=== PATIENT | male | born 1955 | race Caucasian/White ===

== ENCOUNTER 2019-09-02 20:00 | Outpatient (CLI) | payer MEDICAID, SELFPAY | END 2019-09-02 20:01 | disposition home or self-care (01) | LOC: SLEEP 09-03 09:53 | PROVIDERS: Family Provider Family Medicine; PCP Family Medicine; Visit Provider Family Medicine | DX: G47.33 Obstructive sleep apnea (adult) (pediatric) (principal) | CPT/HCPCS: 95810; 95811 ==

== ENCOUNTER 2019-09-11 12:58 | Emergency (ER) | payer MEDICAID, SELFPAY ==
[2019-09-11 13:03] VITALS: BP 145/73; PULSE 98; RESP 18; TEMP 36.9; O2SAT 95; BMI 32.3
--- NOTE | 2019-09-11 13:14 | ED_ITS ---
Entered by Briana Farah, acting as scribe for Gavi Reynoso MD HPI - Extremity Problem General: Chief complaint: Extremity Injury, Lower Stated complaint: KNEE PAIN Time Seen by Provider: 09/11/19 13:13 Source: patient Mode of arrival: ambulatory History of Present Illness: HPI Narrative: 64 yo male presents to ED with complaints of R knee pain, R lower leg pain and R ankle pain. The patient said he fell 2-3 days ago, twisting his R knee. He said the pain goes from his R knee down to his R foot. He said he is unable to bear weight. Complaint: joint swelling and joint paint Onset (ago): day(s) (2-3) Pain Consistency: constant Location: right, lower extremity and knee Quality: aching and constant Radiation: none Relieving factors: immobilization Exacerbating factors: nothing Associated symptoms: Reports no associated symptoms; Deny chest pain, fever(s) or rash Review of Systems Const: Denies: fever or chills Eyes: Denies: change in vision ENMT: Denies: throat pain or mouth pain Card: Denies: chest pain Resp: Denies: shortness of breath GI: Denies: abdominal pain, vomiting or diarrhea Musc: Reports: joint pain; Denies: back pain Skin/Breast: Denies: rash Neuro: Denies: headache Psych: Denies: depression Endo: Denies: excessive urination Martell/Lymph: Denies: easy bruising All/Imm: Denies: hives PFSH ED PFSH: Statuses (acute, chronic, etc) shown below reflect problem list status as previously entered and may not be historically accurate Social History Smoking and tobacco status: current every day smoker Physical Exam Const: COMMON NORMALS: no apparent distress and healthy appearing HENMT: COMMON NORMALS: normocephalic and external nose normal HEAD & SCALP: normocephalic NOSE: external nose normal and no nasal discharge (nasal dischage) Eye: COMMON NORMALS: PERRL PUPIL: Yes PERRL Neck/C-Spine: COMMON NORMALS: full ROM and no lymphadenopathy Chest: COMMONS NORMALS: inspection of chest normal Resp: COMMON NORMALS: normal respiratory effort and clear to auscultation bilaterally AUSCULTATION: clear to auscultation bilaterally Cardio: COMMON NORMALS: regular rate and regular rhythm RATE: regular rate RHYTHM: regular rhythm GI: COMMON NORMALS: soft to palpation PALPATION: Yes soft Extremity: COMMON NORMALS: normal to inspection and normal capillary refill OTHER: Tenderness to left knee with pain with movement no obvious deformity distal pulses intact. Psych: COMMON NORMALS: mental status grossly normal and cooperative Skin: COMMON NORMALS: no rashes or lesions noted GENERAL SKIN EXAM: no rashes or lesions noted Course Vital Signs: Vital signs: Vital Signs Temperature 98.4 F 09/11/19 13:25 Pulse Rate 98 09/11/19 13:25 Respiratory Rate 14 09/11/19 13:25 Blood Pressure 133/69 09/11/19 13:25 Pulse Oximetry 94 09/11/19 13:25 MDM - Extremity (Nontraumatic) MDM Narrative: Medical decision making narrative: Patient presents with a knee sprain. X-ray shows no fracture. Patient placed in a knee immobilizer and crutches and is stable for discharge. Imaging Data^: xr knee: Attestation: I personally reviewed and interpreted this imaging study as follows: My impression: no acute abnormality Discharge Plan Discharge Patient Disposition: Home, Self-Care Clinical Impression: Right knee sprain Qualifiers: Encounter type: initial encounter Involved ligament of knee: unspecified ligament Qualified Code(s): S83.91XA - Sprain of unspecified site of right knee, initial encounter Condition: Stable Prescriptions: New EC-Naprosyn 500 mg tablet,delayed release (DR/EC) 500 mg PO BID PRN (Reason: pain) Qty: 20 RF: 0 Discharge Orders: Discharge Order (Routine); Ordered 09/11/19 Ordered By: Gavi Reynoso Referrals: Rehan Clarke MD [Primary Care Provider] - Tomas Almendarez MD [Physician] - 4-7 days Discharge Diet: Advance as tolerated Discharge Activity: Increase activity as tolerated Patient Instructions: Knee Sprain (ED) Coding Level of Care Code ED Applicator Sprayer for Chg Fwd Exam Problem Focused The documentation recorded by the Gagan harris Valerie R, accurately reflects the service I personally performed and the decisions made by Angeles pa Korby, MD Sep 11, 2019 12:58
--- NOTE | 2019-09-11 13:17 | XRR_ITS ---
PROCEDURE INFORMATION: Exam: XR Right Knee Exam date and time: 09/11/2019 1:50 PM Age: 64 years old Clinical indication: Injury or trauma; Fall; Initial encounter; Blunt trauma; Knee; Right; Injury date: 2 days ago; Additional info: Knee pain, PT fell 2 days ago TECHNIQUE: Imaging protocol: XR Right knee. Views: 3 views. COMPARISON: CR Knee 3 views, RIGHT* [id number] 02/10/2019 11:07 PM FINDINGS: Bones/joints: Normal. Soft tissues: Negative for acute bony abnormality XR/XR knee RT 3V* [id number] IMPRESSION: No acute findings.
[2019-09-11 13:25] VITALS: BP 133/69; PULSE 98; RESP 14; TEMP 36.9; O2SAT 94
[2019-09-11] MEDS: HYDROcodone-acetaminophen 7.5-325 mg Tablet 1 TAB PO (14:05)
--- NOTE | 2019-09-12 12:22 | DCPLANNER ---
live study manager was asked to schedule a followup appointment for patient with ortho. live study manager called the ortho clinic, spoke with Pat, gave clinic patients information. live study manager was told that patients information would be printed and reviewed. Clinic will call case briefer and patient with appointment information.
--- NOTE | 2019-09-17 14:37 | DCPLANNER ---
Patient has a follow up appointment scheduled for 09.22.19 at [facility] with Dr. Cisneros at 9:30. Clinic will call patient with appointment information.
--- NOTE | 2019-10-21 14:16 | DCPLANNER ---
Patient did not attend appointment scheduled for 09.22.19 with ortho.
== END 2019-09-11 13:57 | disposition home or self-care (01) ==
PROVIDERS: Emergency Provider Emergency Medicine; Family Provider Family Medicine; PCP Family Medicine
DX: S83.91XA Sprain of unspecified site of right knee, initial encounter (principal); X50.1XXA Overexertion from prolonged static or awkward postures, initial encounter; F17.210 Nicotine dependence, cigarettes, uncomplicated
CPT/HCPCS: 73562; 99281

== ENCOUNTER → 2019-10-06 11:44 | Outpatient (BNVA) | payer MEDICAID, SELFPAY | PROVIDERS: Family Provider Family Medicine; PCP Family Medicine; Referring Provider Family Medicine; Visit Provider Internal Medicine Rheumatology | DX: M05.9 Rheumatoid arthritis with rheumatoid factor, unspecified (principal); Z79.899 Other long term (current) drug therapy; Z11.59 Encounter for screening for other viral diseases; Z11.1 Encounter for screening for respiratory tuberculosis; Z79.52 Long term (current) use of systemic steroids | CPT/HCPCS: 36415; 80076; 82306; 82565; 85651; 86140; 86480; 86704; 99214 ==

== ENCOUNTER → 2019-10-06 13:38 | Outpatient (BNVA) | payer MEDICAID, SELFPAY | PROVIDERS: Family Provider Family Medicine; PCP Family Medicine; Referring Provider Family Medicine; Visit Provider Internal Medicine Rheumatology | DX: Z79.899 Other long term (current) drug therapy (principal); Z11.59 Encounter for screening for other viral diseases; Z71.89 Other specified counseling; M05.9 Rheumatoid arthritis with rheumatoid factor, unspecified | CPT/HCPCS: 85025 ==

== ENCOUNTER 2019-10-17 14:29 | Outpatient (CLI) | payer MEDICAID, SELFPAY ==
--- NOTE | 2019-10-17 14:41 | XR_ITS ---
WS: [id number] Chest 2 views, 10/17/2019 Clinical Data: POSITIVE PPD Comparison: PA chest, 06/02/2019. Findings: No nodules, masses or effusions are seen. The heart is normal. The pulmonary vascularity is not increased. No pneumonia or pneumothorax is seen. There is flattening of the diaphragms with prom inent atelectasis at both lower lobes. The aortic arch and descending aorta show calcification. XR/XR chest 2V* [id number] Impression: Atherosclerosis and hyperinflation.
== END 2019-10-17 14:30 | disposition home or self-care (01) ==
LOC: RAD 14:37
PROVIDERS: Family Provider Family Medicine; PCP Family Medicine; Visit Provider Family Medicine
DX: I70.0 Atherosclerosis of aorta (principal); R76.11 Nonspecific reaction to tuberculin skin test without active tuberculosis
CPT/HCPCS: 71046

== ENCOUNTER 2019-11-17 07:54 | Outpatient (CLI) | payer MEDICAID, SELFPAY ==
--- NOTE | 2019-11-17 08:00 | MR_ITS ---
WS: [id number] MRI CERVICAL SPINE HISTORY: cervical pain COMPARISON: None available. Posterior alignment is normal. Reactive marrow edema along the endplates of C5 and C6. No fractures. Disc desiccation and narrowing throughout. Most significant at C5-6. Additional osteophytes extend po steriorly from C5 and C6 by 4.6 mm. Signal within the cervical cord is normal. Visualized posterior fossa is unremarkable. Craniocervical junction, C1 and C2 relationship, odontoid process and soft tissues are normal. C2-C3: RIGHT paracentral osteophyte and disc protrusion. Bilateral facet joint arthritis. Severe LEFT foraminal stenosis due to osteophyte and facet disease. C3-C4: Diffuse disc bulging and osteophytic ridging. Central disc osteophyte complex. Effacement of C SF with severe central and bilateral foraminal stenosis. C4-C5: Diffuse annular disc bulging with osteophytic ridging and facet arthritis. Central disc protru woody contributing to severe central and LEFT foraminal stenosis. Moderate RIGHT foraminal stenosis. C5-C6: Diffuse annular disc bulging and osteophytic ridging and facet disease. Severe central, subart icular recess and bilateral foraminal stenosis. Deformity and displacement of the thecal sac and cerv ical cord. C6-C7: Small osteophytes with no significant stenosis. C7-T1: Normal. Paraspinal soft tissue are normal. MR/MR cervical spin wo con* [id number] IMPRESSION: 1. Multilevel spondylitic changes and stenosis throughout the cervical spine. 2. Most significant stenosis at C5-6. Severe central, subarticular recess and bilateral foraminal stenosis with deformity of the cord and displacement. 3. Severe LEFT foraminal stenosis at C2-3. 4. Severe central and bilateral foraminal stenosis at C3-4. 5. Severe central and LEFT foraminal stenosis at C4-5 with moderate RIGHT fora antwan stenosis.
--- NOTE | 2019-11-17 08:45 | XR_ITS ---
WS: [id number] LATERAL CERVICAL SPINE: 3 view. Lateral radiographs are performed in upright neutral, flexion and extension to the patient's toleranc e. HISTORY: cervical pain COMPARISON: None available. Increase in cervical lordosis. Patient's neck is held in hyperflexion. Less than 2 mm anterolisthesis of C3, C4 and C5. With flexion and extension there is minimal anterior movement of C4 by 3.8 mm. Near normal alignment during extension. Advanced degenerative changes at C 5-6. XR/XR cervical spine fl/ex [id number] IMPRESSION: 1. Increase in cervical lordosis. 2. During flexion C4 anterolisthesis to 3.8 mm indicating mild instability. Ne ar normal alignment with extension and neutral positioning.
== END 2019-11-17 07:55 | disposition home or self-care (01) ==
LOC: RADSHAW 07:55
PROVIDERS: Family Provider Family Medicine; PCP Family Medicine; Visit Provider Specialist
DX: M47.892 Other spondylosis, cervical region (principal); M48.02 Spinal stenosis, cervical region
CPT/HCPCS: 72040; 72141

== ENCOUNTER 2020-01-05 14:08 | Observation (INO) | payer MEDICAID, SELFPAY ==
[2020-01-02 11:34] VITALS: BMI 31.6
[2020-01-05] VITALS (17 sets, daily range): BP systolic 107–172; BP diastolic 71–89; PULSE 93–118; RESP 17–35; TEMP 36.3–37.1; O2SAT 89–99
--- NOTE | 2020-01-05 08:51 | ANES.PREANE2 ---
Pre-Anesthetic Assessment Pre-Anesthetic Assessment: Height/Weight: Height 1.85 m Weight 108.862 kg Preop Diagnosis: Intervertebral disc disorder with myelopathy, mid cervical region Proposed Procedure: Operation Date: 01/05/20 09:55 Proposed Procedures p C4-5, C5-6 ACDFF ([id number]) M50.020(Not Applicable) - Salvador Capone MD Familial anesthetic complications: None Was Beta Sonam taken within 24 hours: Yes Last intake: Intake Last Liquid Date 01/04/20 Last Solid Date 01/04/20 Last Solid Time 17:30 Social: Social History: Tobacco and No alcohol Exam: Pre-Anes Outpt Exam: alert, oriented x 3, clear to auscultation bilaterally and regular rate & rhythm Airway: Cervical ROM: Other (limited extension) MP: 4 Additional comments: edentulous Pulmonary: Pulmonary: COPD and Sleep apnea CV/HEM: CV/HEM: HTN and DC (years ago) : : None reported Hepatic: Hepatic: None reported GI: GI: None reported Metabolic: Metabolic: DM Musc/skel: Comments: neck pain Neuropsych: Neuropsych: None reported Anesthetic Plan: ASA status: 3 Anesthesia: General Risk of > 500 ml blood loss (7ml/kg in children): No PFSH Anesthesia PFSH: Medical History (Updated 01/02/20 @ 11:24 by Gali Rodriguez RN) Adhesive arachnoiditis CHF (congestive heart failure) COPD (chronic obstructive pulmonary disease) Diabetes GERD (gastroesophageal reflux disease) High risk medication use Immunization counseling Inflammatory arthritis Osteoarthritis Rheumatoid arthritis with rheumatoid factor Spondylolisthesis, lumbar region Surgical History (Updated 01/02/20 @ 11:24 by Gali Rodriguez RN) History of arthroscopy of knee History of back surgery History of lumbar fusion History of PTCA Family History Other Arthritis Asthma CAD (coronary artery disease) Cancer Diabetes Heart disease Hypertension Denies family history of Rheumatoid arthritis Lupus Social History Smoking and tobacco status: current every day smoker Alcohol intake: never Lives independently: Yes Marital status: Current occupational status: retired and disabled Current occupation: retired/disabled History of recent travel: No Data Anesthesia Cardiac Studies: No Data to Display
[2020-01-05 08:56] LABS: Glucose Point of Care 221 mg/dL (70-110)
--- NOTE | 2020-01-05 08:57 | W.PM.OPSUD ---
Surgery/Procedure H&P Update DATE OF PROCEDURE: January 05, 2020 DATE H&P PERFORMED: 12/11/19 H&P UPDATE INFORMATION: I have reviewed H&P completed within last 30 days and H&P to be scanned into chart PREOP DIAGNOSIS: Intervertebral disc disorder with myelopathy, mid cervical region PRIMARY INDICATION FOR PROCEDURE: Pain PLANNED PROCEDURE: Operation Date: 01/05/20 09:55 Proposed Procedures C4-5, C5-6 ACDFF ([id number]) M50.020(Not Applicable) - Salvador Capone MD
--- NOTE | 2020-01-05 09:11 | XR_ITS ---
WS: [id number] Portable lateral cervical spine in the OR, 01/05/2020 Clinical Data: SURGERY Comparison: Lateral lumbar spine, 11/17/2019 Findings: There is a radiopaque needle in the anterior subcutaneous space in the neck which is pointed toward t he C4 vertebral body. XR/XR cervical spine 1Vport [id number] Impression: Needle pointing toward C4 vertebral body.
[2020-01-05] MEDS: sodium chloride 0.9% 1,000 ML 30 ML IV (09:16)
[2020-01-05] MEDS: insulin regular-human 100 units/1 mL 5 UNIT IVP (09:17)
--- NOTE | 2020-01-05 09:30 | PM.OP2 ---
Brief Operative Note: Date of procedure: 01/05/20 Pre-op diagnosis: Intervertebral disc disorder with myelopathy, midcervical Post-op diagnosis: same (with instability of joint) Procedure Done: C4-C5, C5-C6 ACDFF Surgeon: Salvador Capone Estimated blood loss (mL): 25 Complications: None. Post-op Plan: PACU, then vargas Condition: stable Disposition: PACU Coding Level of Care Code Acute Pesticide Applicator for Ashley Matt
[2020-01-05] MEDS: thrombin 5,000 unit SDV 5000 UNIT XX (10:15)
--- NOTE | 2020-01-05 10:28 | XR_ITS ---
WS: [id number] Portable lateral cervical spine in the OR, 01/05/2020, 1031 hours. Clinical Data: surgery Comparison: The lateral cervical spine in the OR, 01/05/2020, 0946 hours Findings: There are retractors and probes in the anterior aspect of the neck. The radiopaque probe is at the C4 -C5 disc level. XR/XR cervical spine [facility] [id number] Impression: Localization of C4-C5 disc.
--- NOTE | 2020-01-05 10:41 | SUR.OPER ---
Family Notified Of Patient's Status Via Phone.
--- NOTE | 2020-01-05 11:47 | SUR.OPER ---
ATTEMPTED TO GIVE FAMILY UPDATE BUT THERE WAS NO ANSWER.
--- NOTE | 2020-01-05 13:08 | XR_ITS ---
WS: [id number] Cervical spine, AP and lateral, 01/05/2020 Clinical Data: postop Comparison: Portable lateral lower cervical spine, 01/05/2020, 1031 hours Findings: The anterior cervical disc fusion from C4 through C6 is seen. The components are in good po sition. There are artificial disks at C4-C5 and C5-C6. There is calcification in the right side of th e neck which may be in the carotid arteries. XR/XR cervical spine 3V* [id number] Impression: Satisfactory anterior cervical disc fusion C4-C6.
--- NOTE | 2020-01-05 17:00 | P.OP_ITS ---
Operative Report Date of procedure: January 05, 2020 Pre-op Diagnosis: Intervertebral disc disorder with myelopathy, mid cervical region Post-op diagnosis: same (with instability of joint) Procedure Done: C4-C5, C5-C6 anterior cervical discectomy with osteophytectomy. C4-C5, C5-C6 anterior cervical plate/screw fixation. C4-C5, C5-C6 placement of intervertebral prosthetic devices. C4-C5, C5-C6 anterior cervical fusion utilizing morselized autograft obtained from the osteophytectomy portions of the procedure. Implants: ACIS ProTi Spacers. Synthes Vectra plate/screws. Specimens removed/disposition: C4-C5 and C5-C6 disc Pathology: Disc fragments Surgeon: Salvador Capone Anesthesia: General Estimated blood loss (mL): 25 IV fluids (mL): 1,200 Urine output (mL): 250 Complications: None. Condition: stable Disposition: PACU Brief History: The patient is a 64-year-old white male with symptomatic, radiographically confirmed cervical disc/joint disease and associated neural impingement. Imaging studies demonstrated dominant abnormalities at C4-C5 and C5-C6. Conservative management did not provide adequate lasting symptom relief. After review of the diagnostic and treatment options with the risks/potential benefits/rationale for each, the patient requested to proceed with surgical intervention. Procedure: After routine preoperative evaluation and informed consent were obtained, the patient was taken to the Operating Room and placed under general endotracheal anesthesia. He was positioned supine and fit in the Moise-Mar Lin tongs for the application of in-line cervical traction. The anterolateral neck on the left was prepared with hair clippers. A proposed transverse skin incision was marked with a sterile skin marker, utilizing intraoperative radiography and regional anatomy for localization. The area was scrubbed with Betadine, prepped with DuraPrep, and draped with sterile towels and drapes. Ioban surgical barrier was applied. The proposed incision site was infiltrated with 1% Xylocaine with Epinephrine. A skin incision was made and carried down into the subcutaneous tissues. The platysma was identified and divided in the direction of its fibers. A plane was dissected just medial to the carotid sheath and lateral to the midline esophagus and trachea. Prevertebral soft tissues were bluntly dissected free of the anterior margin of the cervical spine. Longus coli muscles were freed from their medial attachments. Deep self-retaining retractors were placed. Intraoperative radiography verified the desired surgical levels. The C4-C5 and C5-C6 interspaces were sequentially incised with a #11 blade. Discectomies were accomplished utilizing various curettes and pituitary rongeurs. Anterior marginal osteophytes were resected with the Lempert and Kerrison rongeurs. Cartilaginous end plates were stripped free with curettes. Posterior marginal osteophytes were resected with thin foot plate Kerrison rongeurs. The medial aspects of the neural foramina were enlarged in a similar manner. Posterior longitudinal ligament was divided and resected as necessary to further the decompression. Due to extensive bony overgrowth of the C5-C6 disc space and marginal osteophyte contribution to neural impingement, the Mediaspectrum high-speed drill with flor[place] jacqueline was utilized to complete the osteophytectomy portions of the procedure and for endplate preparation. Overall, encroachment and osteophyte prominence were greater C5-C6 than C4-C5. Suspected segmental instability was confirmed at C4-C5. Once the decompressions were felt to be adequate at both levels, the disc spaces were sized. An 8mm ACIS ProTi lordotic/medium Spacer was chosen for C4-C5. A 7 mm ACIS ProTi lordotic/medium Spacer was chosen for C5-C6. The Spacers were packed with morselized autograft obtained from the osteophytectomy portions of the procedure. The Spacers were sequentially placed within the C4-C5 and C5-C6 interspaces while in-line cervical traction was applied via the Moise-Wells tongs. Once the Spacers were felt to be in good position, a Synthes Vectra plate of the desired size was chosen. The plate was bent to match the curvature of the patient's cervical spine utilizing the plate alvarez. The plate was secured to the C4, C5 and C6 vertebral bodies with bilateral 4 mm x 14 mm self-drilling screws. Final screw tightening was performed, and the locking mechanisms within the plate were noted to engage the screws at each site. The construct was inspected and felt to be in good position and secure. The wound was copiously irrigated with sterile saline and antibiotic irrigation. Hemostasis was ensured with the bipolar electrocautery. Wound closure was performed in multiple layers with 2-0 Vicryl Plus simple interrupted closure of the platysma and deep dermis as separate layers. Final skin closure was performed with 4-0 Vicryl Plus in a running subcuticular pattern. Steri- Strips were applied and a sterile dressing was placed. The patient was released from the [facility] and fit in a Falls collar. He was transferred onto the Recovery Room cart in the supine position. He was extubated without incident. The patient tolerated the procedure well. All sponge, needle, and instrument counts were correct at the completion of the procedure.
[2020-01-05 17:15] LABS: Glucose Point of Care 215 mg/dL (70-110)
--- NOTE | 2020-01-05 17:33 | PC.NURSE ---
patient given discharge instructions and verbalized understanding of instructions. patient's called for ride home.
--- NOTE | 2020-01-05 18:00 | PM.DCS ---
Discharge Providers Date of Admission: 01/05/20 14:08 Date of Discharge: January 05, 2020 Attending Provider at Admission: Salvador Capone MD Attending Provider at Discharge: Salvador Capone MD Primary Care Provider: Rehan Clarke MD Diagnoses at Discharge Discharge Diagnosis (1) Cervical disc disorder with myelopathy of mid-cervical region: Status: Acute (2) Instability of joint: Status: Acute Reason for Visit Reason for Visit: Brief History: The patient is a 64-year-old white male with symptomatic, radiographically confirmed cervical disc/joint disease and associated neural impingement. Imaging studies demonstrated dominant abnormalities at C4-C5 and C5-C6. Conservative management did not provide adequate lasting symptom relief. After review of the diagnostic and treatment options with the risks/potential benefits/rationale for each, the patient requested to proceed with surgical intervention. Hospital Course Hospital Course: The patient underwent C4-C5, C5-C6 ACDFF on 01/05/2020. He tolerated the procedure well. He completed preoperative and postoperative intravenous antibiotic doses, and the physical therapy postoperative spine protocol. He was ambulatory, voiding, and tolerating a diabetic diet prior to discharge home in the evening of the date of surgery. Physical Exam Const: COMMON NORMALS: no acute distress GENERAL APPEARANCE: cooperative and comfortable Neck/C-Spine: GENERAL: Yes trachea midline CERVICAL SPINE: Yes collar present Resp: COMMON NORMALS: normal respiratory effort EFFORT & INSPECTION: Yes able to speak in complete sentences and No tachypneic Extremity: COMMON NORMALS: no clubbing, cyanosis or edema Neuro: COMMON NORMALS: moves all extremities and no focal motor deficits Psych: COMMON NORMALS: Normal thought process present and speech normal APPEARANCE: Yes grossly normal ATTITUDE: Yes calm and Yes engaged ACTIVITY/MOTOR BEHAVIOR: Yes appropriate eye contact SPEECH: Yes normal speech MOOD & AFFECT: Yes euthymic mood THOUGHT PROCESS: Normal thought process present ATTENTION/CONCENTRATION: Yes attention grossly intact Skin: WOUNDS: Yes surgical site (Left anterolateral neck surgical site dressing clean/dry/intact. ) Details: other (no surgical site erythema, fullness or drainage) Urinary Catheter Management^: F: Cath Placed During This Visit: yes, but has since been removed by the nurse Urinary Catheter Date of Insertion: 01/05/20 Urinary Catheter Time of Insertion: 09:30 Date Urinary Catheter Removed: 01/05/20 Time Urinary Catheter Discontinued: 13:02 Discharge Data Data Completed and Pending: Completed Studies During Hospitalization Category Date Time Status XR cervical spine 1 view portable [ XR cervical spine Exams 01/05/20 09:11 Completed 1Vport 82873] Rou remedios XR cervical spine 1 view portable [ XR cervical spine Exams 01/05/20 10:28 Completed 1Vport 63831] Lionel remedios XR cervical spine 3V* [id number] Routine Exams 01/05/20 13:08 Completed Pathology: Surgic al [PTH] Routine Pth 01/05/20 13:01 Completed Imaging^: Other Xray: Radiologist's impression: Satisfactory anterior cervical disc fusion C4-C6. Procedures Performed: C4-C5, C5-C6 anterior cervical discectomy/fusion/fixation. Intravenous antibiotics. Physical therapy. Vitals: Last Vital Signs Temp 98.8 F 01/05/20 18:05 Pulse 104 H 01/05/20 18:05 Resp 17 01/05/20 18:05 BP 162/71 01/05/20 18:05 Pulse Ox 92 01/05/20 18:05 Discharge Plan Discharge Patient Disposition: Home, Self-Care Condition: Stable Prescriptions: Continued tramadol 50 mg tablet 50 mg PO TID PRN (Reason: Pain) RF: 0 Victoza 2-Karl 0.6 mg/0.1 mL (18 mg/3 mL) pen injector 1.8 mg SUBCUT Q24H RF: 0 cholecalciferol (vitamin D3) 5,000 unit tablet,disintegrating 5,000 unit PO DAILY RF: 0 Stiolto Respimat 2.5-2.5 mcg/actuation mist 2 puff INHALATION DAILY RF: 0 amlodipine 5 mg tablet 5 mg PO DAILY RF: 0 docusate sodium [Colace] 100 mg capsule 100 mg PO BID RF: 0 rosuvastatin [Crestor] 40 mg tablet 40 mg PO DAILY RF: 0 ferrous sulfate 325 mg (65 mg iron) tablet 325 mg PO BID RF: 0 gabapentin 600 mg tablet 600 mg PO TID RF: 0 Jardiance 25 mg tablet 25 mg PO DAILY RF: 0 metformin 1,000 mg tablet 1,000 mg PO BID RF: 0 methimazole [Tapazole] 5 mg tablet 5 mg PO DAILY RF: 0 nitroglycerin [Nitrostat] 0.4 mg tablet, sublingual 0.4 mg SUBLINGUAL Q5M PRN (Reason: Chest Pain) RF: 0 pantoprazole 20 mg tablet,delayed release (DR/EC) 20 mg PO DAILY RF: 0 albuterol sulfate [ProAir HFA] 90 mcg/actuation HFA aerosol inhaler 2 puff INHALATION Q6H PRN (Reason: Shortness Of Breath) RF: 0 tamsulosin 0.4 mg capsule 0.4 mg PO DAILY RF: 0 Combivent Respimat 20-100 mcg/actuation mist 1 puff INHALATION Q4H RF: 0 Humulin R Regular U-100 Insuln 100 unit/mL solution 5 unit SUBCUT TID RF: 0 metoprolol tartrate 50 mg tablet 50 mg PO BID Qty: 180 RF: 3 isosorbide mononitrate 30 mg tablet extended release 24 hr 30 mg PO DAILY Qty: 30 RF: 12 prednisone 2.5 mg tablet See Rx Instructions PO .COMPLEX Qty: 60 RF: 1 isoniazid 300 mg Tablet 300 mg PO DAILY RF: 0 leflunomide [Arava] 20 mg tablet 20 mg PO DAILY RF: 0 Held aspirin [Adult Low Dose Aspirin] 81 mg tablet,delayed release (DR/EC) 81 mg PO DAILY RF: 0 Hold Instructions: Resume on 01/06/20. Discharge Orders: Discharge Order (Routine); Ordered 01/05/20 Ordered By: Salvador Capone Other Ambulatory Orders: DME: [facility] (Order) Location: None Selected Ordered By: Salvador Capone Referrals: Salvador Capone MD [Physician] - 2 weeks (Please call in the morning to set up a follow up appointment with Dr. Capone ) Discharge Diet: Diabetic Discharge Activity: Limit activity as instructed and As per PT/OT instructions Patient Instructions: Surgical Site Infections (GEN), Degenerative Disc Disease (DC), Lumbar Spinal Fusion (DC) Activity Restrictions/Additional Instructions: Activity -Cervical fusion: Wear cervical collar 24 hours a day. Change as necessary for showering, shaving, or if it becomes soiled. -No lifting or reaching overhead. - No driving until office followup visit - No lifting/pushing/pulling over 10 pounds - Avoid twisting or bending - Walking is encouraged - Home exercise per physical therapist - You may engage in sexual intercourse at any time as long as it is comfortable for you - Check with your doctor before returning to work. Notify your doctor if you develop: - temperature of 101.5 degrees F. or higher - redness or swelling of the incision - Foul drainage - increasing pain - increasing numbness or tingling in the arms or legs - New or increasing problems with vision, balance, memory, speaking, nausea or vomiting Hygiene: - Showering is okay - No tub baths or soaking Other: Remove outer bandage 3 days after surgery. If you have paper strips, leave in place until they fall off on their own. If you have stitches, keep your incision dry until the stitches are removed. Your doctor's office is available to answer any questions from 7 AM to 5:00 PM, Sunday through at [phone]. After hours, go to the emergency room at [facility] or call 911 for assistance. Discharge Date/Time: 01/05/20 18:06 Discharge Attestations Time Spent in Discharge Care*: other (postop global) Quality Metrics Clinical Quality Measures During this hospital stay, did patient experience: None Coding Level of Care Code Acute Formal Waiter/Waitress for Ashley Matt Diagnoses Cervical disc disorder with myelopathy of mid-cervical region M50.020 Instability of joint M25.30
--- NOTE | 2020-01-06 10:18 | PC.NURSE ---
Deidra with SS said patient didn't get a walker yesterday because order wasn't signed. Jose Elias with PT said he put order in yesterday for the walker. Metabolic Specialist called Dr Capone's office and spoke with Shelton, she said Dr Capone opened chart and signed the order just now. Metabolic Specialist let SS know that Shelton said order was signed.
== END 2020-01-05 18:06 | disposition home or self-care (01) ==
LOC: MEDSURG 14:08
PROVIDERS: Admitting Provider Specialist; PCP Family Medicine; Visit Provider Specialist
PROC: 0RB30ZZ Excision of Cervical Vertebral Disc, Open Approach (ICD-10-PCS; CPT 22551; principal; 2020-01-05 09:50)
DX: M51.06 Intervertebral disc disorders with myelopathy, lumbar region (principal); G60.8 Other hereditary and idiopathic neuropathies; R26.81 Unsteadiness on feet; Z98.890 Other specified postprocedural states; E78.5 Hyperlipidemia, unspecified; E11.40 Type 2 diabetes mellitus with diabetic neuropathy, unspecified; N40.1 Benign prostatic hyperplasia with lower urinary tract symptoms; N13.8 Other obstructive and reflux uropathy; J43.9 Emphysema, unspecified; E03.9 Hypothyroidism, unspecified; I11.0 Hypertensive heart disease with heart failure; I50.9 Heart failure, unspecified; M19.90 Unspecified osteoarthritis, unspecified site; Z79.82 Long term (current) use of aspirin; Z79.4 Long term (current) use of insulin; K21.9 Gastro-esophageal reflux disease without esophagitis; G47.33 Obstructive sleep apnea (adult) (pediatric); I25.2 Old myocardial infarction; F17.210 Nicotine dependence, cigarettes, uncomplicated
CPT/HCPCS: 22551; 22552; 22853 ×2; 12345; 36416; 72020; 72040; 82962; 88304; 94640; 94660; 96360; 96361; 96374; 97161; 97530; C1713; G0378; J0690; J1815; J2001; J2704; J3010; J3490; J3535; J7030; L0172; L0174

== ENCOUNTER 2020-01-23 09:39 | Outpatient (CLI) | payer MEDICAID, SELFPAY ==
--- NOTE | 2020-01-23 10:02 | XR_ITS ---
WS: [id number] XR cervical spine 3V* [id number] REASON FOR EXAM: s/p cervical spinal fusion FINDINGS: Anterior fusion C4-C5-C6 with intraspinal fusion There is good alignment of the fused segments. There is no cervical ribs seen There is cervical spondylosis noted. XR/XR cervical spine 3V* [id number] IMPRESSION: Stable anterior fusion C4-C5-C6
== END 2020-01-23 09:40 | disposition home or self-care (01) ==
LOC: RADWPI 09:42
PROVIDERS: Family Provider Family Medicine; PCP Family Medicine; Visit Provider Licensed Practical Nurse
DX: Z98.1 Arthrodesis status (principal)
CPT/HCPCS: 72040

== ENCOUNTER → 2020-02-11 10:18 | Outpatient (BNVA) | payer MEDICAID, SELFPAY | PROVIDERS: Family Provider Family Medicine; PCP Family Medicine; Visit Provider Internal Medicine Rheumatology | DX: M05.9 Rheumatoid arthritis with rheumatoid factor, unspecified (principal); Z79.899 Other long term (current) drug therapy | CPT/HCPCS: 36415; 85025; 85651 ==

== ENCOUNTER 2020-02-16 09:59 | Outpatient (CLI) | payer MEDICAID, SELFPAY ==
--- NOTE | 2020-02-16 10:00 | XR_ITS ---
WS: [id number] CERVICAL SPINE 3 VIEWS HISTORY: s/p cervical spinal fusion COMPARISON: 01/23/2020 Prior anterior cervical fusion from C4 through C6 with interbody spacers at C4-5 and C5-6. No interval change in appearance of the hardware. Soft tissues are normal. XR/XR cervical spine 3V* [id number] IMPRESSION: Status post anterior cervical fusion from C4 to C6 with no interval change appr eciated.
== END 2020-02-16 10:00 | disposition home or self-care (01) ==
LOC: RADWPI 10:03
PROVIDERS: Family Provider Family Medicine; PCP Family Medicine; Visit Provider Licensed Practical Nurse
DX: Z98.1 Arthrodesis status (principal)
CPT/HCPCS: 72040

== ENCOUNTER → 2020-02-26 11:38 | Outpatient (BNVA) | payer MEDICAID, SELFPAY | PROVIDERS: Family Provider Family Medicine; PCP Family Medicine; Visit Provider Internal Medicine Rheumatology | DX: M05.79 Rheumatoid arthritis with rheumatoid factor of multiple sites without organ or systems involvement (principal); Z98.890 Other specified postprocedural states; Z22.7 Latent tuberculosis; Z79.899 Other long term (current) drug therapy; F17.210 Nicotine dependence, cigarettes, uncomplicated | CPT/HCPCS: 99214 ==

== ENCOUNTER 2020-03-03 08:10 | Outpatient (CLI) | payer MEDICAID, SELFPAY ==
--- NOTE | 2020-03-03 08:00 | CT_ITS ---
WS: [id number] CT cervical spine. Additional two-dimensional coronal and sagittal reconstruction was performed. 03/03 Clinical Data: s/p cervical spinal fusion Comparison: MRI of the cervical spine, 11/17/2019., Cervical spine, 02/16/2020. DLP: 1717.[address] scans at [facility] use at least one of these dose optimization techniques: automat ed exposure control; mA and/or kV adjustment per patient size (includes targeted exams where dose is matched to clinical indication); or iterative reconstruction. Findings: No compression fractures are seen. The patient has had an anterior cervical disc fusion from C4 throu gh C6 with artificial disc material at C4-C5 and C5-C6. The odontoid is normal. There is disc space n arrowing at C6-C7 and C7-T1. The spinous processes are in good alignment. The soft tissues of the nec k are not remarkable. No prevertebral soft tissue swelling is present. C2-C3: There is left foraminal narrowing with a osteophytic spur of the C2 vertebral body and osteoar thritis of the left facet joint. C3-C4: There is bilateral foraminal narrowing with left facet joint arthritis. C4-C5: There is left foraminal narrowing with a spur of the left posterior C4 vertebral body and left facet joint arthritis. C5-C6: Bilateral foraminal narrowing with posterior spurring and facet joint arthritis. C6-C7: No disc bulge, canal stenosis or foraminal stenosis is seen. There is bilateral facet joint ar thritis. C7-T1: No disc bulge, canal stenosis or foraminal stenosis is seen. CT/CT cervical spin wo con* [id number] Impression: 1. Intact anterior cervical disc fusion of C4-C6. 2. Degenerative disc narrowing at C6-C7 and C7-T1. 3. Multilevel foraminal narrowing with posterior spurring and facet joint arthr itis.
== END 2020-03-03 08:11 | disposition home or self-care (01) ==
LOC: RADWPI 08:12
PROVIDERS: Family Provider Family Medicine; PCP Family Medicine; Visit Provider Licensed Practical Nurse
DX: Z98.1 Arthrodesis status (principal); M43.22 Fusion of spine, cervical region
CPT/HCPCS: 72125

== ENCOUNTER 2020-03-17 06:58 | Outpatient (CLI) | payer MEDICAID, SELFPAY ==
--- NOTE | 2020-03-17 07:11 | US_ITS ---
WS: [id number] INDICATION: Left forearm swelling TECHNIQUE: Ultrasound soft tissue left forearm FINDINGS: Left posterior elbow effusion with dorsal fluid collection. Internal debris within the flui d collection. Recommend correlation for olecranon bursitis or gouty arthritis. Infection should be ex cluded. Fluid collection measures 4.1 x 1.6 x 1.6 cm US/US soft tissue/extremity 28140 IMPRESSION: Left posterior elbow fluid collection with complex internal debris. Recommend correlation for BP olecranon bursitis or gouty arthritis. Infection should also be excluded.
== END 2020-03-17 06:59 | disposition home or self-care (01) ==
LOC: US 06:58
PROVIDERS: Family Provider Family Medicine; PCP Family Medicine; Visit Provider Internal Medicine Rheumatology
DX: M79.89 Other specified soft tissue disorders (principal)
CPT/HCPCS: 76882

== ENCOUNTER 2020-04-11 12:01 | Emergency (ER) | payer MEDICAID, SELFPAY ==
--- NOTE | 2020-04-11 12:03 | XR_ITS ---
WS: [id number] EXAM: RIGHT KNEE: 3 VIEWS DATE OF EXAMINATION: 04/11/2020, 1345 hours COMPARISON: Right knee examination from 09/11/2019 HISTORY: Patient is 64 years old with knee pain status post injury. FINDINGS: Overall bone density appears similar. Considered slightly decreased. Again demonstrated are mild trevino ges of arthritis in the medial and patellofemoral compartments. Lateral compartment appears fairly no rmal in appearance. No fracture or dislocation is seen. Minimal suprapatellar joint fluid. Arterial c alcified plaque formation changes seen. Slight nonspecific soft tissue edema seen superficial to the knee in the distal quadriceps region. XR/XR knee RT 3V* [id number] IMPRESSION: No acute bony abnormality. Mild osteoarthritis in the knee with a small amount of joint fluid. Soft tissue contusion injury anterior/superior to the patella.
[2020-04-11 12:27] VITALS: BP 84/54; PULSE 90; RESP 18; TEMP 36.6; O2SAT 93; BMI 32.7
--- NOTE | 2020-04-11 12:38 | ED_ITS ---
HPI - Extremity Problem General: Chief complaint: Extremity Injury, Lower Stated complaint: fall/right knee pain Time Seen by Provider: 04/11/20 12:38 History of Present Illness: HPI Narrative: 64-year-old male patient presents to the emergency department with complaints of right knee pain. He reports sustained a fall yesterday, was getting off the commode when he lost his balance and fell. He states is not able to complete weightbearing. He reports no other injury with exception of right knee. MD Complaint: joint swelling (Right knee) Onset (ago): hour(s) (24) Pain Consistency: constant Location: right Severity scale (1-10): 7 Quality: aching and constant Radiation: none Relieving factors: immobilization and rest Exacerbating factors: weight bearing Associated symptoms: Reports no associated symptoms; Deny chest pain, fever(s) or rash Review of Systems General: Reports: 10 or more systems reviewed and unremarkable except in HPI and below Const: Denies: fever(s), chills or diaphoresis Eyes: Denies: blurry vision or eye redness ENMT: Denies: throat pain, dental pain or disequilibrium Card: Denies: chest pain, palpitations or irregular heart rhythm Resp: Denies: dyspnea, productive cough, non-productive cough or wheezing GI: Denies: abdominal pain, nausea or vomiting : Denies: dysuria Musc: Reports: extremity pain (Right knee), joint swelling (Right knee) and joint stiffness (Right knee); Denies: neck pain or back pain Skin/Breast: Denies: rash or pruritus Neuro: Denies: headache(s), weakness in extremities or behavioral changes Martell/Lymph: Denies: easy bruising [facility] ED PFSH: Medical History (Updated 04/11/20 @ 15:07 by KHANG Kaur) Adhesive arachnoiditis CHF (congestive heart failure) COPD (chronic obstructive pulmonary disease) Diabetes GERD (gastroesophageal reflux disease) High risk medication use History of trigger finger Immunization counseling Inactive TB Inflammatory arthritis Latent tuberculosis by blood test Osteoarthritis Post-operative state Rheumatoid arthritis with rheumatoid factor Seropositive rheumatoid arthritis of multiple sites Spondylolisthesis, lumbar region Surgical History History of arthroscopy of knee History of back surgery History of cervical spinal surgery (01/05/20) Dr. Capone History of lumbar fusion History of PTCA History of spinal surgery 01/05/2020 Dr. Karla Capone: C4-C5, C5-C6 ACDFF. Hx of hand surgery Family History Father CAD (coronary artery disease) Cancer Heart disease Hypertension Other Arthritis Asthma Social History Smoking and tobacco status: current every day smoker Alcohol intake: never Household members: spouse and family Marital status: Current occupational status: retired and disabled Current occupation: retired/disabled History of recent travel: No Physical Exam Const: COMMON NORMALS: no acute distress, patient oriented x3, healthy appearing and alert GENERAL APPEARANCE: cooperative, comfortable and well hydrated Eye: COMMON NORMALS: Equal, round and reactive pupils present and EOMs intact bilaterally GENERAL EYE: appearance normal, both eyes and all related structures PUPIL: Yes Equal, round and reactive pupils present Neck/C-Spine: COMMON NORMALS: full ROM and no lymphadenopathy GENERAL: Yes normal visual inspection and Yes trachea midline CERVICAL SPINE: Yes cervical ROM normal Lymph: LYMPHATIC: no lymphadenopathy noted Chest: COMMONS NORMALS: normal inspection of the chest Resp: COMMON NORMALS: normal respiratory effort and clear to auscultation bilaterally AUSCULTATION: clear to auscultation bilaterally Cardio: COMMON NORMALS: regular rhythm, S1 normal heart sound present, S2 normal heart sound present and Peripheral pulses 2+ throughout RHYTHM: regular rhythm HEART SOUNDS: S1 normal heart sound present and S2 normal heart sound present PERIPHERAL PULSES: Peripheral pulses 2+ throughout GI: COMMON NORMALS: Soft to palpation and non-tender INSPECTION: Yes normal to inspection PALPATION: Yes Soft to palpation : COMMON NORMALS: Yes no CVA tenderness BLADDER/KIDNEY EXAM: Yes no CVA tenderness Back/Pelvis: COMMON NORMALS: no CVA tenderness and thoracic and lumbar spine normal to inspection Extremity: COMMON NORMALS: normal to inspection and capillary refill normal GENERAL: Yes normal exam except as noted, No cyanosis, No mottling and Yes weight-bearing difficulty RIGHT LOWER EXTREMITY: No upper leg, Yes knee joint (right) Right knee: Yes inspection (anterior/medial edema), Yes palpation (pain), Yes ROM (limited due to pain) and Yes neurovascular exam (intact), No lower leg, No foot & digits and No foot & digits Neuro: COMMON NORMALS: patient oriented x3 and no focal motor deficits SENSORIUM/ORIENTATION: Yes alert Psych: COMMON NORMALS: mental status grossly normal, Normal thought process present and cooperative ACTIVITY/MOTOR BEHAVIOR: Yes appropriate eye contact THOUGHT PROCESS: Normal thought process present Skin: COMMON NORMALS: no rashes or lesions noted and turgor normal GENERAL SKIN EXAM: no rashes or lesions noted and turgor normal Course ED course: 64-year-old male patient presents to the emergency department with right knee pain status post fall he experienced 1 days ago. Right knee x-ray did not reveal acute fracture, patient was unable to ambulate or bear weight on the right leg due to knee pain reproduced. CT scan of the right knee completed, negative for tibial plateau fracture or other occult fracture. Case discussed with Dr. Reynoso. No further orders, patient recommended to follow-up with clinical research technician/primary care provider, verbalized understanding and agrees with plan of care, crutches were provided. Vital Signs: Vital signs: Vital Signs Temperature 97.8 F 04/11/20 12:27 Pulse Rate 90 04/11/20 12:27 Respiratory Rate 18 04/11/20 12:27 Blood Pressure 84/54 04/11/20 12:27 Pulse Oximetry 93 04/11/20 12:27 MDM - Extremity (Nontraumatic) Imaging Data^: Other CT: Radiologist's impression: [place] [address] CT Scan Report Signed Patient: Jase Warren #: [id number] : 6Acct#:[id number] Age/Sex: 64 / MADM Date: 04/11/20 Loc: ERRoom/Bed: Attending Dr: Ordering Provider/Ordering MD: Ana Lilia Pink Date of Service: 04/11/20 Procedure(s): CT lower leg RT wo con* [id number] Accession Number(s): [id number] Report Number: [id number] WS: [id number] EXAM: CT lower leg RT wo con* [id number] DATE OF EXAMINATION: 04/11/2020, 1440 hours COMPARISON: Right knee examination from the same date. HISTORY: 64-year-old fell. Complaining of pain in the knee. TECHNIQUE: Transaxial computed tomography images obtained through the area of the right knee with images viewed in soft tissue and bone window with reconstructions. Iterative reconstruction dose reduction technique was utilized during the performance of examination. DLP: 215.8 mGy.cm FINDINGS: There is a soft tissue contusion injury over the anterior distal upper thigh and quadriceps region with edema in the skin and subcutaneous tissues. The distal quadriceps tendon is intact. Overall bone density is decreased. Trabecular bone loss as well as subcortical tunneling is demonstrated. There are changes of tricompartmental osteoarthritis involving the knee. No fracture is identified. Joint effusion is seen with the majority of fluid being within the suprapatellar pouch. On soft tissue windows the medial and lateral collateral ligaments, distal quadriceps tendon and patellar tendon are normal in appearance. The anterior and posterior crucial ligaments are both felt to be intact as well. Both menisci are not well evaluated on CT imaging. If there is concern for meniscal tear follow-up MRI of the knee would be recommended. Arterial atherosclerotic plaque formation is demonstrated in the posterior arterial structures. CT/CT lower leg RT wo con* [id number] IMPRESSION: No fracture seen. Changes of arthritis in the knee joint with a reactive joint effusion. Soft tissue contusion injury over the distal lower upper thigh and suprapatellar region. Dictated By:Jasper Jade MD Signed By:Jasper Jade MD Discharge Plan Discharge Patient Disposition: Home Clinical Impression: Arthritis Fall as cause of accidental injury at home as place of occurrence Qualifiers: Encounter type: initial encounter Qualified Code(s): W19.XXXA - Unspecified fall, initial encounter Knee contusion Qualifiers: Encounter type: initial encounter Laterality: right Qualified Code(s): S80.01XA - Contusion of right knee, initial encounter Condition: Stable Prescriptions: No Action tramadol 50 mg tablet 50 mg PO TID PRN (Reason: Pain) RF: 0 Victoza 2-Karl 0.6 mg/0.1 mL (18 mg/3 mL) pen injector 1.8 mg SUBCUT Q24H RF: 0 cholecalciferol (vitamin D3) 5,000 unit tablet,disintegrating 5,000 unit PO DAILY RF: 0 Stiolto Respimat 2.5-2.5 mcg/actuation mist 2 puff INHALATION DAILY RF: 0 aspirin [Adult Low Dose Aspirin] 81 mg tablet,delayed release (DR/EC) 81 mg PO DAILY RF: 0 Hold Instructions: Resume on 01/06/20. docusate sodium [Colace] 100 mg capsule 100 mg PO BID RF: 0 rosuvastatin [Crestor] 40 mg tablet 40 mg PO DAILY RF: 0 ferrous sulfate 325 mg (65 mg iron) tablet 325 mg PO BID RF: 0 gabapentin 600 mg tablet 600 mg PO TID RF: 0 Jardiance 25 mg tablet 25 mg PO DAILY RF: 0 metformin 1,000 mg tablet 1,000 mg PO BID RF: 0 methimazole [Tapazole] 5 mg tablet 5 mg PO DAILY RF: 0 nitroglycerin [Nitrostat] 0.4 mg tablet, sublingual 0.4 mg SUBLINGUAL Q5M PRN (Reason: Chest Pain) RF: 0 pantoprazole 20 mg tablet,delayed release (DR/EC) 20 mg PO DAILY RF: 0 albuterol sulfate [ProAir HFA] 90 mcg/actuation HFA aerosol inhaler 2 puff INHALATION Q6H PRN (Reason: Shortness Of Breath) RF: 0 tamsulosin 0.4 mg capsule 0.4 mg PO DAILY RF: 0 Combivent Respimat 20-100 mcg/actuation mist 1 puff INHALATION Q4H RF: 0 leflunomide [Arava] 20 mg tablet 20 mg PO DAILY Qty: 30 RF: 3 prednisone 10 mg tablet See Rx Instructions PO .COMPLEX PRN (Reason: joint pain) Qty: 30 RF: 2 Humulin R Regular U-100 Insuln 100 unit/mL solution 5 unit SUBCUT TID RF: 0 metoprolol tartrate 50 mg tablet 50 mg PO BID Qty: 180 RF: 3 isosorbide mononitrate 30 mg tablet extended release 24 hr 30 mg PO DAILY Qty: 30 RF: 12 amlodipine 5 mg tablet 5 mg PO DAILY Qty: 90 RF: 0 isoniazid 300 mg Tablet 300 mg PO DAILY RF: 0 Discharge Orders: Discharge Order (Routine); Ordered 04/11/20 Ordered By: Ana Lilia Pink Referrals: Rehan Clarke MD [Primary Care Provider] - Discharge Diet: Usual diet Discharge Activity: Limit activity as instructed Patient Instructions: Osteoarthritis (ED), Rheumatoid Arthritis (ED), Knee Pain (ED), Fall Prevention (ED) Activity Restrictions/Additional Instructions: Activity as tolerated Take medications as prescribed, may use tramadol as needed for pain Keep right knee elevated, may apply cool compresses to the right knee to help with swelling and pain Follow-up with your primary care provider this week for reevaluation of the right knee if pain continues/fails to improve. Return to the emergency department if you develop fever, chills or redness with increased pain to the right knee or right lower extremity. Discharge Date/Time: 04/11/20 15:24 Coding Level of Care Code ED Iuss Acoustic Analyst for Ashley Fwd Exam Comprehensive
--- NOTE | 2020-04-11 14:20 | CT_ITS ---
WS: [id number] EXAM: CT lower leg RT wo con* [id number] DATE OF EXAMINATION: 04/11/2020, 1440 hours COMPARISON: Right knee examination from the same date. HISTORY: 64-year-old fell. Complaining of pain in the knee. TECHNIQUE: Transaxial computed tomography images obtained through the area of the right knee with images viewed in soft tissue and bone window with reconstructions. Iterative reconstruction dose reduction technique was utilized during the performance of examination. DLP: 215.8 mGy.cm FINDINGS: There is a soft tissue contusion injury over the anterior distal upper thigh and quadriceps region wi th edema in the skin and subcutaneous tissues. The distal quadriceps tendon is intact. Overall bone d ensity is decreased. Trabecular bone loss as well as subcortical tunneling is demonstrated. There are changes of tricompartmental osteoarthritis involving the knee. No fracture is identified. Joint effu woody is seen with the majority of fluid being within the suprapatellar pouch. On soft tissue windows the medial and lateral collateral ligaments, distal quadriceps tendon and witt llar tendon are normal in appearance. The anterior and posterior crucial ligaments are both felt to be intact as well. Both menisci are not well evaluated on CT imaging. If there is concern for meniscal tear follow-up MRI of the knee would be recommended. Arterial atherosclerotic plaque formation is demonstrated in the posterior arterial structures. CT/CT lower leg RT wo con* [id number] IMPRESSION: No fracture seen. Changes of arthritis in the knee joint with a reactive joint effusion. Soft tissue contusion injury over the distal lower upper thigh and lockhart prapatellar region.
== END 2020-04-11 15:24 | disposition home or self-care (01) ==
PROVIDERS: Emergency Provider Nurse Practitioner Family; PCP Family Medicine
DX: S80.01XA Contusion of right knee, initial encounter (principal); Z79.82 Long term (current) use of aspirin; Z79.4 Long term (current) use of insulin; M17.11 Unilateral primary osteoarthritis, right knee; I50.9 Heart failure, unspecified; J44.9 Chronic obstructive pulmonary disease, unspecified; E11.9 Type 2 diabetes mellitus without complications; F17.210 Nicotine dependence, cigarettes, uncomplicated; W18.11XA Fall from or off toilet without subsequent striking against object, initial encounter
CPT/HCPCS: 12345; 73562; 73700; 99281; 99283; E0114

== ENCOUNTER → 2020-04-14 08:08 | Outpatient (BNVA) | payer MEDICAID, SELFPAY | PROVIDERS: PCP Family Medicine; Referring Provider Internal Medicine Rheumatology; Visit Provider Specialist | DX: M70.22 Olecranon bursitis, left elbow; M05.9 Rheumatoid arthritis with rheumatoid factor, unspecified; S59.902A Unspecified injury of left elbow, initial encounter; X58.XXXA Exposure to other specified factors, initial encounter; Y93.9 Activity, unspecified | CPT/HCPCS: 73080; 80500; 84450; 87075; 89050 ==

== ENCOUNTER → 2020-04-14 09:00 | Outpatient (BNVA) | payer MEDICAID, SELFPAY | PROVIDERS: PCP Family Medicine; Referring Provider Internal Medicine Rheumatology; Visit Provider Specialist | DX: Z01.89 Encounter for other specified special examinations (principal) | CPT/HCPCS: 84450; 87075 ==

== ENCOUNTER → 2020-06-24 11:33 | Outpatient (BNVA) | payer MEDICAID, SELFPAY | PROVIDERS: PCP Family Medicine; Visit Provider Specialist | DX: M25.561 Pain in right knee (principal) | CPT/HCPCS: 73560; 73565 ==

== ENCOUNTER → 2020-07-08 08:44 | Outpatient (BNVA) | payer MEDICAID, SELFPAY | PROVIDERS: PCP Family Medicine; Visit Provider Internal Medicine Rheumatology | DX: Z79.899 Other long term (current) drug therapy (principal) | CPT/HCPCS: 36415; 80076; 82565; 85025; 85651; 86140 ==

== ENCOUNTER → 2020-07-19 09:36 | Outpatient (BNVA) | payer MEDICAID, SELFPAY | PROVIDERS: PCP Family Medicine; Visit Provider Internal Medicine Rheumatology | DX: M05.79 Rheumatoid arthritis with rheumatoid factor of multiple sites without organ or systems involvement (principal); M17.11 Unilateral primary osteoarthritis, right knee; Z79.899 Other long term (current) drug therapy; Z22.7 Latent tuberculosis; Z98.890 Other specified postprocedural states | CPT/HCPCS: 99214 ==

== ENCOUNTER 2020-08-31 08:47 | Outpatient (CLI) | payer MEDICAID, SELFPAY ==
--- NOTE | 2020-08-31 08:56 | CT_ITS ---
WS: [id number] LDCT LUNG CANCER SCREENING TECHNIQUE: Noncontrast CT of the chest with coronal and sagittal reformatted images. CLINICAL INFORMATION: NICOTINE DEPENDENCE, CIGARETTES COMPARISON: None. DLP: 58.15 mGy.cm DIvol: 1.[address] scans at [facility] use at least one of these dose optimization techniques: automat ed exposure control; mA and/or kV adjustment per patient size (includes targeted exams where dose is matched to clinical indication); or iterative reconstruction. FINDINGS: Aortic calcification. Coronary calcification. Left proximal subclavian artery stent. No mediastinal o r hilar lymphadenopathy. Adrenal glands are normal. Lobulation upper pole left kidney partially visua lized. This can be further evaluated with CT abdomen pelvis or ultrasound. Mild chronic emphysematous changes. No suspicious pulmonary parenchymal abnormalities. Calcified subp leural plaques the left upper lobe. Field impression No acute pulmonary infiltrates. No consolidation or pleural fluid. CT/CT lung screening [id number] IMPRESSION: LUNG-RADS: 2-Benign Appearance or Behavior FOLLOW UP: 12 Month: Continue annual screening with LDCT Lobulation upper pole left kidney partially visualized. This can be further catian luated with CT abdomen pelvis or ultrasound.
== END 2020-08-31 08:48 | disposition home or self-care (01) ==
LOC: RAD 08:52
PROVIDERS: PCP Family Medicine; Visit Provider Family Medicine
DX: Z12.2 Encounter for screening for malignant neoplasm of respiratory organs (principal); F17.210 Nicotine dependence, cigarettes, uncomplicated
CPT/HCPCS: 71271

== ENCOUNTER → 2020-10-28 09:16 | Outpatient (BNVA) | payer MEDICARE, MEDICAID, SELFPAY | PROVIDERS: PCP Family Medicine; Visit Provider Orthopaedic Surgery | DX: M47.892 Other spondylosis, cervical region (principal); M54.2 Cervicalgia; Z98.1 Arthrodesis status | CPT/HCPCS: 72050 ==

== ENCOUNTER 2020-11-05 10:40 | Outpatient (CLI) | payer MEDICARE, MEDICAID, SELFPAY ==
--- NOTE | 2020-11-05 11:00 | MR_ITS ---
WS: [id number] MRI CERVICAL SPINE NONCONTRAST TECHNIQUE: Sagittal T1, T2 and STIR imaging. Axial T2, gradient, and fiesta imaging. CLINICAL INFORMATION: M54.2 - Cervicalgia COMPARISON: CT March 03, 2020 FINDINGS: Some images are degraded due to susceptibility artifact from hardware and motion artifact. Normal cervical alignment. Prior postoperative changes C4-C6 anterior interbody cervical fusion. Cord signal is normal. Mild to moderate central canal stenosis in the mid cervical spine. Alignment appea rs unchanged since March 03, 2020. C2-C3: Disc osteophytic ridging. Moderate left bony foraminal narrowing. Spinal canal is patent. Mild facet arthropathy. C3-C4: Disc osteophyte complex with endplate ridging. Mild to moderate central canal stenosis. Modera te facet arthropathy. Moderate to severe left and mild right bony foraminal narrowing. C4-C5: Disc osteophyte complex with endplate ridging. Moderate facet arthropathy. Moderate central ca nal stenosis. Severe left and moderate right bony foraminal narrowing. C5-C6: Disc osteophytic ridging with moderate central canal stenosis. Severe left and moderate to sev ere right proximal foraminal narrowing. Moderate facet arthropathy. C6-C7: Slight anterolisthesis C6 on C7. Mild left greater than right bony foraminal narrowing. Mild f acet arthropathy. Spinal canal is patent. C7-T1: Slight anterolisthesis. Disc osteophyte complex with mild left greater than right bony foramin al narrowing. Spinal canal is patent. Visualized brain stem structures: Normal. Prevertebral soft tissues: Normal. MR/MR cervical spin wo con* [id number] IMPRESSION: 1. Normal cervical alignment. Prior anterior interbody cervical fusion C4-C6. 2. Cord signal is normal. 3. Mild to moderate central canal stenosis C3-C4 C4-C5 and C5-C6 due to disc o steophyte complex at C3-C4 and osteophytic ridging at C4-C5 and C5-C6. 4. Multilevel moderate to severe bony foraminal narrowing worse at left C3-C4, left C4-C5, left C5-C6. 5. Multilevel moderate to advanced facet arthropathy worse at left C3-C4, left C4-C5, and bilateral C5-C6.
== END 2020-11-05 10:41 | disposition home or self-care (01) ==
LOC: RADWPI 10:45
PROVIDERS: PCP Family Medicine; Visit Provider Orthopaedic Surgery
DX: M43.22 Fusion of spine, cervical region (principal); M48.02 Spinal stenosis, cervical region; M47.812 Spondylosis without myelopathy or radiculopathy, cervical region
CPT/HCPCS: 72141

== ENCOUNTER 2020-11-19 09:44 | Outpatient (CLI) | payer MEDICARE, MEDICAID, SELFPAY ==
[2020-11-19 10:15] LABS: Basophils # 0.1 10^3/uL (0.0-0.1); Basophils % 1.6 %; Eosinophils # 0.2 10^3/uL (0.0-0.8); Eosinophils % 2.2 %; Hematocrit 50.2 % (42.0-52.0); Hemoglobin 16.3 g/dL (11.7-16.6); Lymphocytes # 1.5 10^3/uL (0.8-4.8); Lymphocytes % 19.5 %; Mean Corpuscular HGB Conc 32.5 g/dL (30.0-36.0); Mean Corpuscular Hemoglobin 34.5 pg (28.0-34.0); Mean Corpuscular Volume 106.4 fL (80-94); Mean Platelet Volume 10.7 fL (7.4-10.4); Monocytes # 0.7 10^3/uL (0.2-0.9); Monocytes % 9.2 %; Neutrophils % 67.2 %; Nucleated Red Blood Cells % 0 %; Platelet Count 202 10^3/cmm (130-400); Red Blood Count 4.72 10^6/uL (4.1-5.3); Red Cell Distribution Width 12.7 % (12.1-15.1); White Blood Count 7.6 10^3/uL (4.0-10.0)
[2020-11-19 10:30] LABS: Alanine Aminotransferase 10 U/L (0-41); Alkaline Phosphatase 117 IU/L (40-130); Aspartate Amino Transferase 13 U/L (0-40); C Reactive Protein 1.8 mg/L (0.0-4.9); Globulin 2.6 g/dL (1.3-4.6); Glomerular Filtration Rate 60.8 mL/min (90-130); Total Bilirubin 0.3 mg/dL (0.15-1.2); Total Protein 6.6 g/dL (6.6-8.7)
== END 2020-11-19 09:45 | disposition home or self-care (01) ==
PROVIDERS: PCP Family Medicine; Visit Provider Internal Medicine Rheumatology
DX: M05.9 Rheumatoid arthritis with rheumatoid factor, unspecified (principal); Z79.899 Other long term (current) drug therapy
CPT/HCPCS: 36415; 80076; 82565; 85025; 86140

== ENCOUNTER → 2020-11-29 10:31 | Outpatient (BNVA) | payer MEDICARE, MEDICAID, SELFPAY | PROVIDERS: PCP Family Medicine; Visit Provider Internal Medicine Rheumatology | DX: M05.79 Rheumatoid arthritis with rheumatoid factor of multiple sites without organ or systems involvement (principal); Z79.899 Other long term (current) drug therapy; M47.12 Other spondylosis with myelopathy, cervical region; Z22.7 Latent tuberculosis; Z98.890 Other specified postprocedural states; F17.210 Nicotine dependence, cigarettes, uncomplicated | CPT/HCPCS: 99214 ==

== ENCOUNTER 2020-12-23 09:04 | Emergency (ER) | payer MEDICARE, MEDICAID, SELFPAY ==
[2020-12-23 09:07] VITALS: BP 152/71; PULSE 124; RESP 18; O2SAT 95; BMI 31.6
--- NOTE | 2020-12-23 09:11 | XR_ITS ---
WS: [id number] Left knee, 3 views, 12/23/2020 Clinical Data: fall/pain Comparison: AP view of both knees, 06/24/2020. Findings: There is medial joint compartment narrowing. There is spurring of the posterior patella. No fractures or dislocations are seen. The soft tissues are normal. XR/XR knee LT 3V* [id number] Impression: 1. Moderate narrowing of the medial joint compartment of the left knee and spur ring of the posterior left patella. 2. Normal lateral joint compartment of the left knee.
[2020-12-23 09:12] VITALS: TEMP 36.8
--- NOTE | 2020-12-23 09:12 | W.ED.FALL ---
HPI - Fall General: Chief Complaint: Fall Stated Complaint: KNEE PAIN PFSH ED PFSH: Medical History (Updated 11/29/20 @ 11:31 by Azael Traylor MD) Adhesive arachnoiditis CHF (congestive heart failure) COPD (chronic obstructive pulmonary disease) Diabetes GERD (gastroesophageal reflux disease) High risk medication use High risk medication use History of trigger finger Immunization counseling Inactive TB Inflammatory arthritis 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 Capone History of lumbar fusion History of PTCA History of spinal surgery 01/05/2020 Dr. Karla Capone: C4-C5, C5-C6 ACDFF. Hx of hand surgery Family History Father CAD (coronary artery disease) Cancer Heart disease Hypertension Other Arthritis Asthma Social History (Updated 11/29/20 @ 10:50 by Mary Green LPN) Smoking and tobacco status: current every day smoker cigarettes Packs smoked per day: 1 Alcohol intake: never Household members: spouse and family Marital status: Current occupational status: retired and disabled Current occupation: retired/disabled History of recent travel: No Course Vital Signs: Vital signs: Vital Signs Pulse Rate 124 H 12/23/20 09:07 Respiratory Rate 18 12/23/20 09:07 Blood Pressure 152/71 12/23/20 09:07 Pulse Oximetry 95 12/23/20 09:07 Discharge Plan Discharge Prescriptions: No Action tramadol 50 mg tablet 50 mg PO TID PRN (Reason: Pain) RF: 0 Victoza 2-Karl 0.6 mg/0.1 mL (18 mg/3 mL) pen injector 1.8 mg SUBCUT Q24H RF: 0 Stiolto Respimat 2.5-2.5 mcg/actuation mist 2 puff INHALATION DAILY RF: 0 aspirin [Adult Low Dose Aspirin] 81 mg tablet,delayed release (DR/EC) 81 mg PO DAILY RF: 0 Hold Instructions: Resume on 01/06/20. docusate sodium [Colace] 100 mg capsule 100 mg PO BID RF: 0 rosuvastatin [Crestor] 40 mg tablet 40 mg PO DAILY RF: 0 Jardiance 25 mg tablet 25 mg PO DAILY RF: 0 metformin 1,000 mg tablet 1,000 mg PO BID RF: 0 methimazole [Tapazole] 5 mg tablet 5 mg PO DAILY RF: 0 nitroglycerin [Nitrostat] 0.4 mg tablet, sublingual 0.4 mg SUBLINGUAL Q5M PRN (Reason: Chest Pain) RF: 0 pantoprazole 20 mg tablet,delayed release (DR/EC) 20 mg PO DAILY RF: 0 albuterol sulfate [ProAir HFA] 90 mcg/actuation HFA aerosol inhaler 2 puff INHALATION Q6H PRN (Reason: Shortness Of Breath) RF: 0 tamsulosin 0.4 mg capsule 0.4 mg PO DAILY RF: 0 Combivent Respimat 20-100 mcg/actuation mist 1 puff INHALATION Q4H RF: 0 Humira Pen 40 mg/0.8 mL pen injector kit 40 mg SUBCUT Q14D Qty: 2 RF: 3 leflunomide 20 mg tablet 20 mg PO DAILY 30 Days Qty: 30 RF: 3 prednisone 10 mg tablet See Rx Instructions PO .COMPLEX PRN (Reason: joint pain) Qty: 30 RF: 2 gabapentin 300 mg capsule 200 mg PO TID RF: 0 gabapentin 300 mg capsule 400 mg PO TID RF: 0 cyanocobalamin (vitamin B-12) 1,000 mcg capsule 1,000 mcg PO DAILY RF: 0 Novolin N Flexpen 100 unit/mL (3 mL) insulin pen 80 unit SUBCUT QAM RF: 0 ergocalciferol (vitamin D2) 50 mcg (2,000 unit) capsule 50,000 mcg PO DAILY RF: 0 Air Protector 1,000-50 mg tablet, effervescent PO RF: 0 insulin lispro 100 unit/mL insulin pen 5 unit SUBCUT TID RF: 0 metoprolol tartrate 50 mg tablet 50 mg PO BID Qty: 180 RF: 3 isosorbide mononitrate 30 mg tablet extended release 24 hr 30 mg PO DAILY Qty: 30 RF: 12 amlodipine 5 mg tablet See Rx Instructions .ROUTE .COMPLEX Qty: 30 RF: 0 Coding Level of Care Code ED Licensed Land Surveyor for Chg Fwd
--- NOTE | 2020-12-23 09:15 | W.ED.LOWEXIN ---
HPI - Extremity Injury (Lower) General: Chief Complaint: Fall Stated Complaint: KNEE PAIN Source: patient and EMS Mode of arrival: EMS Limitations: no limitations History of Present Illness: HPI Narrative: Patient is a 65-year-old male who presents to ED today via EMS for complaints of left knee pain. He states he chronically has pain in his right knee and states it often gives out. He states he was going up a flight of stairs when his right knee gave out causing his left knee to twist. He states he then fell directly onto his left knee. Patient states he was able to crawl into his home. He states he called an ambulance but states when they arrived at his house they told him there was no need for emergent transfer to the ED. patient tells me he has not been able to bear weight on the extremity since the event. No other injury sustained during the fall. MD complaint: knee injury Onset (ago): day(s) (yesterday) Injury: Left: knee Type of Injury: other (twisting, fall directly onto knee) Place: home Severity: severe Relieving factors: immobilization Exacerbating factors: weight bearing, movement and palpation Context: fall Associated symptoms: Reports inability to bear weight Other symptoms: none Review of Systems Const: Denies: fever(s), chills, body aches, fatigue or malaise Eyes: Denies: change in vision or blurry vision Card: Denies: chest pain, palpitations, edema or swelling of feet/ankles Resp: Denies: dyspnea GI: Denies: nausea or vomiting Musc: Reports: joint pain (L knee) and limited range of motion (L knee-secondary to pain); Denies: neck pain, back pain, extremity pain or extremity swelling Neuro: Denies: numbness in extremities, weakness in extremities or sensory changes [facility] ED PFSH: Medical History (Updated 12/23/20 @ 10:00 by YASMIN Gay) Adhesive arachnoiditis CHF (congestive heart failure) COPD (chronic obstructive pulmonary disease) Diabetes GERD (gastroesophageal reflux disease) High risk medication use High risk medication use History of trigger finger Immunization counseling Inactive TB Inflammatory arthritis 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 Capone History of lumbar fusion History of PTCA History of spinal surgery 01/05/2020 Dr. Karla Capone: C4-C5, C5-C6 ACDFF. Hx of hand surgery Family History Father CAD (coronary artery disease) Cancer Heart disease Hypertension Other Arthritis Asthma Social History (Updated 11/29/20 @ 10:50 by Mary Green LPN) Smoking and tobacco status: current every day smoker cigarettes Packs smoked per day: 1 Alcohol intake: never Household members: spouse and family Marital status: Current occupational status: retired and disabled Current occupation: retired/disabled History of recent travel: No Physical Exam Const: COMMON NORMALS: no acute distress, patient oriented x3, no limitations, alert and well nourished GENERAL APPEARANCE: cooperative ORIENTATION/CONSCIOUSNESS: Yes awake, Yes oriented to person, Yes oriented to place and Yes oriented to time HENMT: COMMON NORMALS: normocephalic and atraumatic HEAD & SCALP: normocephalic and atraumatic Neck/C-Spine: COMMON NORMALS: full ROM CERVICAL SPINE: Yes cervical ROM normal, No pain with cervical ROM, No Cervical spine tenderness and No Paracervical muscle tenderness Resp: COMMON NORMALS: normal respiratory effort and clear to auscultation bilaterally AUSCULTATION: clear to auscultation bilaterally Cardio: COMMON NORMALS: regular rate and regular rhythm RATE: regular rate RHYTHM: regular rhythm Back/Pelvis: COMMON NORMALS: thoracic and lumbar spine normal to inspection, no thoracic nor lumbar tenderness and thoraco-lumbar ROM normal Extremity: GENERAL: Yes normal exam except as noted OTHER: full ROM to R knee/no pain; chronic L olecranon bursitis; tenderness mainly to L lateral knee joint line-no ROM testing could be performed secondary to pain; all extremities NV intact; extremities otherwise normal apart from documented findings Neuro: COMMON NORMALS: patient oriented x3, moves all extremities, no focal motor deficits and no sensory deficits noted SENSORIUM/ORIENTATION: Yes alert, Yes oriented to person, Yes oriented to place and Yes oriented to time GAIT: Yes Unable to assess gait Skin: NARRATIVE SKIN EXAM: very minor abrasions to bilateral anterior knees Course Vital Signs: Vital signs: Vital Signs Temperature 98.2 F 12/23/20 09:12 Pulse Rate 124 H 12/23/20 09:07 Respiratory Rate 18 12/23/20 09:07 Blood Pressure 152/71 12/23/20 09:07 Pulse Oximetry 95 12/23/20 09:07 MDM - Extremity Injury (Lower) MDM Narrative: Medical decision making narrative: L knee XR negative. States he cannot bear weight on L knee. Patient does not feel like crutches or a walker is an option at this point as he states his right knee is not strong enough to support the weight. He is requesting a wheelchair. Recommend he follow-up with Dr. Clarke next week for re-evaluation. We discussed conservative treatment at home. If needed fails to improve physical therapy and/or MRI might be indicated. Imaging Data^: XR L knee: Radiologist's impression: [address] [address] XRay Report Signed Patient: Jase Warren Unit #: [id number] : 1955 Age/Sex: 65 / M ADM Date: 12/23/20 Loc: ER Room/Bed: Attending Dr: Ordering Provider/Ordering MD: Darya Melgar Date of Service: 12/23/20 Procedure(s): XR knee LT 3V* [id number] Accession Number(s): [id number] Report Number: [id number] WS: [id number] Left knee, 3 views, 12/23/2020 Clinical Data: fall/pain Comparison: AP view of both knees, 06/24/2020. Findings: There is medial joint compartment narrowing. There is spurring of the posterior patella. No fractures or dislocations are seen. The soft tissues are normal. XR/XR knee LT 3V* [id number] Impression: 1. Moderate narrowing of the medial joint compartment of the left knee and spurring of the posterior left patella. 2. Normal lateral joint compartment of the left knee. Dictated By: Lindy Carmona MD Signed By: Lindy Carmona MD Signed Date/Time: 12/23/20934 DD/ 2 Discharge Plan Discharge Patient Disposition: Home Clinical Impression: Injury of left knee Qualifiers: Encounter type: initial encounter Qualified Code(s): S89.92XA - Unspecified injury of left lower leg, initial encounter Condition: Stable Prescriptions: No Action tramadol 50 mg tablet 50 mg PO TID PRN (Reason: Pain) RF: 0 Victoza 2-Karl 0.6 mg/0.1 mL (18 mg/3 mL) pen injector 1.8 mg SUBCUT Q24H RF: 0 Stiolto Respimat 2.5-2.5 mcg/actuation mist 2 puff INHALATION DAILY RF: 0 aspirin [Adult Low Dose Aspirin] 81 mg tablet,delayed release (DR/EC) 81 mg PO DAILY RF: 0 Hold Instructions: Resume on 01/06/20. docusate sodium [Colace] 100 mg capsule 100 mg PO BID RF: 0 rosuvastatin [Crestor] 40 mg tablet 40 mg PO DAILY RF: 0 Jardiance 25 mg tablet 25 mg PO DAILY RF: 0 metformin 1,000 mg tablet 1,000 mg PO BID RF: 0 methimazole [Tapazole] 5 mg tablet 5 mg PO DAILY RF: 0 nitroglycerin [Nitrostat] 0.4 mg tablet, sublingual 0.4 mg SUBLINGUAL Q5M PRN (Reason: Chest Pain) RF: 0 pantoprazole 20 mg tablet,delayed release (DR/EC) 20 mg PO DAILY RF: 0 albuterol sulfate [ProAir HFA] 90 mcg/actuation HFA aerosol inhaler 2 puff INHALATION Q6H PRN (Reason: Shortness Of Breath) RF: 0 tamsulosin 0.4 mg capsule 0.4 mg PO DAILY RF: 0 Combivent Respimat 20-100 mcg/actuation mist 1 puff INHALATION Q4H RF: 0 Humira Pen 40 mg/0.8 mL pen injector kit 40 mg SUBCUT Q14D Qty: 2 RF: 3 leflunomide 20 mg tablet 20 mg PO DAILY 30 Days Qty: 30 RF: 3 prednisone 10 mg tablet See Rx Instructions PO .COMPLEX PRN (Reason: joint pain) Qty: 30 RF: 2 gabapentin 300 mg capsule 200 mg PO TID RF: 0 gabapentin 300 mg capsule 400 mg PO TID RF: 0 cyanocobalamin (vitamin B-12) 1,000 mcg capsule 1,000 mcg PO DAILY RF: 0 Novolin N Flexpen 100 unit/mL (3 mL) insulin pen 80 unit SUBCUT QAM RF: 0 ergocalciferol (vitamin D2) 50 mcg (2,000 unit) capsule 50,000 mcg PO DAILY RF: 0 Air Protector 1,000-50 mg tablet, effervescent PO RF: 0 insulin lispro 100 unit/mL insulin pen 5 unit SUBCUT TID RF: 0 metoprolol tartrate 50 mg tablet 50 mg PO BID Qty: 180 RF: 3 isosorbide mononitrate 30 mg tablet extended release 24 hr 30 mg PO DAILY Qty: 30 RF: 12 amlodipine 5 mg tablet See Rx Instructions .ROUTE .COMPLEX Qty: 30 RF: 0 Discharge Orders: Discharge ED (Routine); Ordered 12/23/20 Ordered By: Darya Melgar Referrals: Rehan Clarke MD [Primary Care Provider] - Activity Restrictions/Additional Instructions: Please ice and elevate the extremity as much as possible. Please follow-up with Dr. Clarke next week for re-evaluation. As discussed physical therapy or MRI may be indicated if knee does not improve with conservative treatment. Coding Level of Care Code ED Hotel Breakfast Attendant for Chg Fwd Exam Comprehensive
--- NOTE | 2020-12-23 11:19 | DCPLANNER ---
canteen manager was asked to arrange for a DME for patient, wheelchair. canteen manager spoke with patient and he stated that he wanted to use [employer] for the wheelchair. canteen manager faxed patients information to HOME medical equipment. A patient choice was filled out and put into patients chart.
[2020-12-23 11:53] VITALS: BP 128/78; PULSE 104; RESP 18; O2SAT 92
== END 2020-12-23 11:53 | disposition home or self-care (01) ==
PROVIDERS: Emergency Provider Physician Assistant; PCP Family Medicine
DX: S89.92XA Unspecified injury of left lower leg, initial encounter (principal); Z79.82 Long term (current) use of aspirin; Z79.4 Long term (current) use of insulin; I11.0 Hypertensive heart disease with heart failure; I50.9 Heart failure, unspecified; J44.9 Chronic obstructive pulmonary disease, unspecified; E11.9 Type 2 diabetes mellitus without complications; F17.210 Nicotine dependence, cigarettes, uncomplicated; X50.1XXA Overexertion from prolonged static or awkward postures, initial encounter
CPT/HCPCS: 73562; 99282

== ENCOUNTER → 2021-08-10 10:27 | Day surgery (SDC) | payer MEDICARE, MEDICAID, SELFPAY | PROVIDERS: PCP Family Medicine; Visit Provider Orthopaedic Surgery | DX: Z01.818 Encounter for other preprocedural examination (principal) | CPT/HCPCS: 93005 ==

== ENCOUNTER → 2021-08-10 14:38 | Outpatient (BNVA) | payer MEDICARE, MEDICAID, SELFPAY | PROVIDERS: PCP Family Medicine; Visit Provider Orthopaedic Surgery | DX: M47.12 Other spondylosis with myelopathy, cervical region (principal); Z01.818 Encounter for other preprocedural examination | CPT/HCPCS: 80048; 85025; 87635 ==

== ENCOUNTER 2021-08-17 10:53 | Day surgery (SDC) | payer MEDICARE, MEDICAID, SELFPAY ==
--- NOTE | 2021-08-10 10:27 | ECG_ITS ---
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 Measurements Intervals Totz Rate: 84 P: -36 SD: 132 QRS: -64 QRSD: 108 T: 66 QT: 332 QTc: 394 Interpretive Statements SINUS RHYTHM INCOMPLETE RIGHT BUNDLE BRANCH BLOCK [90+ ms QRS DURATION, TERMINAL R IN V1/V2, 40+ ms S IN I/aVL/V4/V5/V6] LEFT ANTERIOR FASCICULAR BLOCK [QRS AXIS <= -45, QR IN I, RS IN II] Compared to ECG 12/30/2018 20:33:41 Incomplete right bundle-branch block now present Left anterior fascicular block now present Sinus tachycardia no longer present Right bundle-branch block no longer present Electronically Signed On 08-11-2021 8:51:15 MANAGER VIDEO by Hesham Restrepo M.D. [id number]
[2021-08-10 10:28] VITALS: BMI 28.2
[2021-08-10 10:59] LABS: Basophils # 0.1 10^3/uL (0.0-0.1); Basophils % 1.4 %; Eosinophils # 0.2 10^3/uL (0.0-0.8); Eosinophils % 2.2 %; Hematocrit 46.9 % (42.0-52.0); Hemoglobin 15.3 g/dL (11.7-16.6); Lymphocytes # 1.6 10^3/uL (0.8-4.8); Lymphocytes % 19.8 %; Mean Corpuscular HGB Conc 32.6 g/dL (30.0-36.0); Mean Corpuscular Hemoglobin 33.8 pg (28.0-34.0); Mean Corpuscular Volume 103.8 fl (80-94); Mean Platelet Volume 10.4 fL (7.4-10.4); Monocytes # 0.8 10^3/uL (0.2-0.9); Monocytes % 9.3 %; Neutrophils # 5.37 10^3/uL (1.8-7.7); Neutrophils % 66.9 %; Nucleated Red Blood Cells % 0 %; Platelet Count 212 10^3/cmm (130-400); Red Blood Count 4.52 10^6/uL (4.1-5.3); Red Cell Distribution Width 14.3 % (12.1-15.1)
[2021-08-10 11:15] LABS: Anion Gap 17.2 (5-19); Blood Urea Nitrogen 9 mg/dL (8-23); Calcium 9.1 mg/dL (8.5-10.5); Carbon Dioxide 24 mmol/L (22-29); Chloride 103 mmol/L (98-107); Glucose 116 mg/dL (65-115); Osmolality Calculated 290 mOsm/kg (285-295); Potassium 4.2 mmol/L (3.5-5.1); Sodium 140 mmol/L (136-145)
--- NOTE | 2021-08-10 11:30 | ANES.PREANE2 ---
Pre-Anesthetic Assessment Pre-Anesthetic Assessment: Height/Weight: Height 1.85 m Weight 97.069 kg Preop Diagnosis: Intervertebral disc disorder with myelopathy, mid cervical region Proposed Procedure: Operation Date: 08/17/21 07:00 Proposed Procedures p C2-T2 with C3/4 C4/5 C5/6 Decompression [id number] 38574(x7) 09909 19522(4) M47.12(Not Applicable) - Musa H Sandra, DO s cervical decompression(Not Applicable) - Musa H Sandra, DO Familial anesthetic complications: None Social: Social History: Tobacco and No alcohol Exam: Pre-Anes Outpt Exam: alert, oriented x 3, clear to auscultation bilaterally and regular rate & rhythm Airway: MP: 1 Dentition: Other (no teeth) Pulmonary: Pulmonary: COPD and Sleep apnea (cpap w/ O2) Comments: hx tb CV/HEM: CV/HEM: CAD (stents > 1 year ago, no longer on blood thinners) GI: GI: GERD Metabolic: Metabolic: DM Musc/skel: Musc/skel: RA Anesthetic Plan: ASA status: 3 Anesthesia: General Risk of > 500 ml blood loss (7ml/kg in children): No PFSH Anesthesia PFSH: Medical History Adhesive arachnoiditis CHF (congestive heart failure) COPD (chronic obstructive pulmonary disease) Diabetes GERD (gastroesophageal reflux disease) High risk medication use High risk medication use History of trigger finger Immunization counseling Inactive TB Inflammatory arthritis 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 Capone History of lumbar fusion History of PTCA History of spinal surgery 01/05/2020 Dr. Karla Capone: C4-C5, C5-C6 ACDFF. Hx of hand surgery Family History Father CAD (coronary artery disease) Cancer Heart disease Hypertension Other Arthritis Asthma Social History Smoking and tobacco status: current every day smoker cigarettes Packs smoked per day: 1 Alcohol intake: never Household members: spouse and family Marital status: Current occupational status: retired and disabled Current occupation: retired/disabled History of recent travel: No Data Anesthesia CBC & Chem 7: 08/10/21 10:50 08/10/21 10:50 Other Labs: Laboratory Results - last 48 hr 08/10/21 08/10/21 10:50 10:50 WBC 8.0 RBC 4.52 Hgb 15.3 Hct 46.9 MCV 103.8 H MCH 33.8 MCHC 32.6 RDW 14.3 Plt Count 212 MPV 10.4 Neut % (Auto) 66.9 Lymph % (Auto) 19.8 Ramsey % (Auto) 9.3 Eos % (Auto) 2.2 Baso % (Auto) 1.4 Neut # (Auto) 5.37 Lymph # (Auto) 1.6 Ramsey # (Auto) 0.8 Eos # (Auto) 0.2 Baso # (Auto) 0.1 Nucleated RBC % (auto) 0 Nucleated RBCs # 0.0 Sodium 140 Potassium 4.2 Chloride 103 Carbon Dioxide 24 Anion Gap 17.2 BUN 9 Creatinine 0.8 GFR Calculation 97.0 Glucose 116 H Calculated Osmolality 290 Calcium 9.1 Cardiac Studies: No Data to Display
[2021-08-17 11:22] VITALS: BP 174/106; PULSE 106; RESP 18; TEMP 37; O2SAT 97
[2021-08-17] MEDS: sodium chloride 0.9% 1,000 ML 30 ML IV (11:56)
[2021-08-17 12:03] LABS: Glucose Point of Care 128 mg/dL (70-110)
--- NOTE | 2021-08-17 14:11 | ANES.PAUD2 ---
Pre-Anesthetic Update Pre-Anesthetic Assessment: Date of Surgery/Procedure: 08/17/21 Preop Diagnosis: Cervical Stenosis with Myelopathy Proposed Procedure: Operation Date: 08/17/21 12:25 Proposed Procedures p C2-T2 with C3/4 C4/5 C5/6 Decompression 29341 75877(y7) 90023 62672(4) M47.12(Not Applicable) - Musa H Sandra, DO s cervical decompression(Not Applicable) - Musa H Sandra, DO Any changes to Pre-Anesthetic Assessment?: No Last Intake: Intake Last Liquid Date 08/17/21 Last Liquid Time 05:40 Last Solid Date 08/16/21 Last Solid Time 23:30 Labs Last 48hrs: Laboratory Results - last 48 hr 08/17/21 11:46 POC Glucose 128 H Vitals: Temperature 98.6 F 08/17/21 11:22 Temperature Source Temporal Artery S can 08/17/21 11:22 Pulse Rate 106 H 08/17/21 11:22 Pulse Rhythm 08/17/21 11:22 Pulse Strength 3+ Normal 08/17/21 11:22 Respiratory Rate 18 08/17/21 11:22 Blood Pressure 174/106 08/17/21 11:22 Blood Pressure Joy n 128 08/17/21 11:22 Pulse Oximetry 97 08/17/21 11:22 Oxygen Delivery Me thod 08/17/21 11:22 Exam: Pre-Anes Outpt Exam: alert, oriented x 3, clear to auscultation bilaterally and regular rate & rhythm Cardiac Studies: No Data to Display
--- NOTE | 2021-08-17 15:28 | SUR.PREOP ---
patient left due to long wait time for surgery, requests to be rescheduled to next week. office, and OR notified.
[2021-08-19 05:18] LABS: Quest SARS-CoV-2 RNA NOT DETECTED (NOT DETECTED)
--- NOTE | 2021-08-23 14:45 | P.PN_ITS ---
Subjective Subjective: Interval history: Nurse called to let me know that the patient wanted to go outside and smoke. At this point patient is just postoperative from surgery we did not want him to go outside and smoke. He threatened to leave AGAINST MEDICAL ADVICE I told him to make sure that patient follows up in the clinic the next day to get his drain pulled patient ended up leaving AGAINST MEDICAL ADVICE. Seen in the clinic the next day. Vitals/I&O/Wt Last Vital Signs Temp 98.6 F 08/17/21 11:22 Pulse 106 H 08/17/21 11:22 Resp 18 08/17/21 11:22 BP 174/106 08/17/21 11:22 Pulse Ox 97 08/17/21 11:22 Data : 08/10/21 10:50 08/10/21 10:50 Attestations Medical Necessity Statement*: pt left AMA Coding Level of Care Code Acute Sales Marketing Manager for [facility]
== END 2021-08-17 15:34 | disposition home or self-care (01) ==
LOC: OR 10:55
PROVIDERS: Anesthesiology; PCP Family Medicine; Visit Provider Orthopaedic Surgery
DX: M47.12 Other spondylosis with myelopathy, cervical region (principal); Z53.9 Procedure and treatment not carried out, unspecified reason; J44.9 Chronic obstructive pulmonary disease, unspecified; G47.30 Sleep apnea, unspecified; Z99.81 Dependence on supplemental oxygen; Z95.5 Presence of coronary angioplasty implant and graft; K21.9 Gastro-esophageal reflux disease without esophagitis; E11.9 Type 2 diabetes mellitus without complications; M06.9 Rheumatoid arthritis, unspecified; I50.9 Heart failure, unspecified; Z79.899 Other long term (current) drug therapy; Z82.49 Family history of ischemic heart disease and other diseases of the circulatory system; F17.210 Nicotine dependence, cigarettes, uncomplicated
CPT/HCPCS: 36416; 82962; 87635; J7030

== ENCOUNTER 2021-08-22 07:15 | Inpatient (IN) | payer MEDICARE, MEDICAID, SELFPAY ==
[2021-08-22] VITALS (15 sets, daily range): BP systolic 110–154; BP diastolic 60–90; PULSE 80–112; RESP 16–20; TEMP 36.2–36.8; O2SAT 94–99; BMI 28.2
--- NOTE | 2021-08-22 | XR_ITS ---
WS: [id number] C-ARM RADIOGRAPHS CERVICAL SPINE; 2 IMAGES HISTORY: cervical fusion COMPARISON: None available. Intraoperative imaging during cervical fusion. There is extensive hardware visualized throughout the cervical spine. XR/XR cervical spine 1V [id number] IMPRESSION: Intraoperative imaging during cervical spine fusion.
--- NOTE | 2021-08-22 | SCC_ITS ---
Procedure Done: 1. C2-T2 Posterior spine fusion 2. C2-T2 instrumentation 3. C3/4 laminectomy with bilateral partial facetectomies 4. C4/5 laminectomy with bilateral partial facetectomies 5. C5/6 laminectomy with bilateral partial facetectomies 6. C6/7 laminectomy with bilateral partial facetectomies 7. use of allograft 8. use of autograft from same incision 88.7 seconds of fluoroscopic guidance, for a cumulative dose of 15.05 mGy, was provided to Dr. Flores by the radiology department. C-arm images of the cervical spine were saved for the patient's permanent record. [facility]ITALRom[facility]
--- NOTE | 2021-08-22 07:55 | ANES.PAUD2 ---
Pre-Anesthetic Update Pre-Anesthetic Assessment: Date of Surgery/Procedure: 08/22/21 Preop Diagnosis: Cervical spondylosis with myelopathy Proposed Procedure: Operation Date: 08/22/21 08:30 Proposed Procedures p C2-T2 with C3/4 C4/5 C5/6 Decompression [id number](d7) [id number] 31476(4) M47.12(Not Applicable) - Musa Flores, DO Any changes to Pre-Anesthetic Assessment?: No Last Intake: Intake Last Liquid Date 08/21/21 Last Liquid Time 16:00 Last Solid Date 08/21/21 Last Solid Time 16:00 Vitals: Temperature 98.3 F 08/22/21 07:32 Temperature Source Temporal Artery S can 08/22/21 07:32 Pulse Rate 102 H 08/22/21 07:32 Pulse Rhythm 08/22/21 07:39 Pulse Strength 3+ Normal 08/22/21 07:39 Respiratory Rate 18 08/22/21 07:32 Blood Pressure 154/90 08/22/21 07:32 Blood Pressure Joy n 111 08/22/21 07:32 Pulse Oximetry 96 08/22/21 07:32 Oxygen Delivery Me thod 08/22/21 07:39 Exam: Pre-Anes Outpt Exam: alert, oriented x 3, clear to auscultation bilaterally and regular rate & rhythm Cardiac Studies: No Data to Display
[2021-08-22] MEDS: sodium chloride 0.9% 1,000 ML 30 ML IV (08:00)
--- NOTE | 2021-08-22 08:01 | PM.HP ---
Providers/Chief Complaint Primary Care Provider: Rehan Clarke MD Chief Complaint: Other spondylosis w/ myelopathy History of Present Illness Jase Warren is a 65 year old male HPI: This is an established 65 year old male patient here today for follow up of his neck pain. MRI cervical spine 11/05/20. Onset: no known injury Duration: months Characteristics: numbness and aching Severity: moderate Location: neck Radiating symptoms: Right arm down to fingers, numbness Aggravating factors: movement Alleviating factors: none Neuro deficits: Patient reports numbness, tingling, weakness, incontinence of bowel/bladder, saddle anesthesia. Prior tx: previous neck surgery in 2020 estimated. Review of Systems Narrative: General ROS: negative for weight changes, fever ENT ROS: negative for nasal congestion, drainage or bleeding, sore throat, dysphagia or ear pain Eyes: PERRL Hematological and Lymphatic ROS: negative for swollen glands or abnormal bleeding Endocrine ROS: negative for polyuria/polydpsia or new changes in weight Respiratory ROS: negative for cough, shortness of breath, or wheezing Cardiovascular ROS: negative for chest pain or dyspnea on exertion Gastrointestinal ROS: negative for reflux, abdominal pain, change in bowel habits, or black or bloody stools Musculoskeletal ROS: negative for back pain, neck pain, or joint pain or swelling except for current problem Neurological ROS: negative for TIA or stoke symptoms Skin: no rashes Medications/Allergies Home Medications Medication Instructions Recorded Confirmed Last Taken Type albuterol sulfate 90 mcg/actuation 2 puff INHALATION Q6H PRN 09/24/19 08/22/21 2 Days Ago History aerosol inhaler ~01/03/20 aspirin 81 mg tablet,delayed 81 mg PO DAILY 09/24/19 08/22/21 08/19/21 History release docusate sodium 100 mg capsule 100 mg PO BID 09/24/19 08/22/21 08/21/21 History empagliflozin 25 mg tablet 25 mg PO DAILY 09/24/19 08/22/21 08/21/21 History metformin 1,000 mg tablet 1,000 mg PO BID 09/24/19 08/22/21 08/21/21 History methimazole 5 mg tablet 5 mg PO DAILY 09/24/19 08/22/21 08/21/21 History nitroglycerin 0.4 mg sublingual 0.4 mg SUBLINGUAL Q5M PRN 09/24/19 08/22/21 Unknown History tablet pantoprazole 20 mg tablet,delayed 20 mg PO DAILY 09/24/19 08/22/21 08/21/21 History release rosuvastatin 40 mg tablet 40 mg PO DAILY 09/24/19 08/22/21 08/21/21 History tamsulosin 0.4 mg capsule 0.4 mg PO DAILY 09/24/19 08/22/21 08/21/21 History liraglutide 0.6 mg/0.1 mL (18 mg/3 1.8 mg SUBCUT Q24H 10/07/19 08/22/21 08/21/21 History mL) subcutaneous pen injector tiotropium 2.5 mcg-olodaterol 2.5 2 puff INHALATION DAILY 10/07/19 08/22/21 06/21/21 History mcg/actuation mist for inhalation tramadol 50 mg tablet 50 mg PO TID PRN 10/07/19 08/22/21 08/21/21 History ipratropium 20 mcg-albuterol 100 1 puff INHALATION Q4H 12/03/19 08/22/21 07/20/21 History mcg/actuation mist for inhalation ergocalciferol (vitamin D2) 50 mcg 50,000 mcg PO Q7D cap 10/28/20 08/22/21 08/19/21 History (2,000 unit) capsule gabapentin 300 mg capsule 200 mg PO TID cap 10/28/20 08/22/21 08/21/21 History gabapentin 300 mg capsule 400 mg PO TID cap 10/28/20 08/22/21 08/21/21 History insulin NPH isoph U-100 human 100 80 unit SUBCUT QAM ml 10/28/20 08/22/21 08/21/21 History unit/mL (3 mL) subcutaneous pen insulin lispro 100 unit/mL 5 unit SUBCUT TID 10/28/20 08/22/21 08/21/21 History subcutaneous pen adalimumab 40 mg/0.8 mL 40 mg SUBCUT Q14D #2 ea 04/21/21 08/22/21 08/15/21 Rx subcutaneous pen kit cyanocobalamin (vitamin B-12) 1,000 mcg SUBCUT Q30D 08/10/21 08/22/21 08/13/21 History Allergies Allergy/AdvReac Type Severity Reaction Status Date / Time No Known Allergies Allergy Verified 08/22/21 07:33 PFSH Acute PFSH: Medical History Adhesive arachnoiditis CHF (congestive heart failure) COPD (chronic obstructive pulmonary disease) Diabetes GERD (gastroesophageal reflux disease) High risk medication use High risk medication use History of trigger finger Immunization counseling Inactive TB Inflammatory arthritis 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 Capone History of lumbar fusion History of PTCA History of spinal surgery 01/05/2020 Dr. Karla Capone: C4-C5, C5-C6 ACDFF. Hx of hand surgery Family History Father CAD (coronary artery disease) Cancer Heart disease Hypertension Other Arthritis Asthma Social History Smoking and tobacco status: current every day smoker cigarettes Packs smoked per day: 1 Alcohol intake: never Household members: spouse and family Marital status: Current occupational status: retired and disabled Current occupation: retired/disabled History of recent travel: No Vitals/I&O/Wt Last Vital Signs Temp 98.3 F 08/22/21 07:32 Pulse 102 H 08/22/21 07:32 Resp 18 08/22/21 07:32 BP 154/90 08/22/21 07:32 Pulse Ox 96 08/22/21 07:32 Weight last 48 hrs Weight 214 lb Physical Exam Narrative: EXAM NARRATIVE: CONSTITUTIONAL: The patient is a normal appearing [] in no apparent distress. GENERAL: Patient in no acute distress. CARDIAC: Regular rate and rhythm. CHEST: Normal inspiratory effort, normal respiratory rate. ABDOMEN: Soft and nontender. SKIN: Clear, warm and intact. NEURO?PSYCH: The patient is alert and oriented to person, place and time. Sensorv /SILT Motor StrengthShoulder abduction C5 5/5Wrist extension C6 5/5Elbow extension C7 5/5Hand Social Work Supervisor C8 5/5Finger abduction T15/5 Radial/ Ulnar/ Median n intact LowerSensory (SILT)Motor StrengthHin flexion L2/3Ant/inner thigh 5/5Hip adduction L2/3 5/5Knee extension L4 Lat thigh, 5/5Toe dorsiflexion L5 5/5Ankle dorsiflexion L5/ A93Nzzduhb flexion S1 5/5 DTRBleeps 2+Triceps 2+Brachioradialis 2+Patellar 2+Achilles 2+ MUSCULOSKELETAL: [] UPPEREXTREMITIES: The patient had full active ROM in fingers, wrist, elbow, and shoulder. The patient demonstrated ability to fully flex/extend/abduct/adduct fingers, make ok sign, cross 2nd/3rd digits, extend 1st digit fully.. Radial pulse 2+, CR<2 seconds. LOWER EXTREMITIES: Pt has full, active ROM of toes, ankle, knee, and hip. Dorsalis pedis/posterior tibialis pulses 2+, CR<2 seconds. SPINE: Skin warm, dry, intact. A&P Assessment and plan (1) Cervical spondylosis with myelopathy: Status: Acute Attestations Medical Necessity Statement*: failed conservative tx Coding Level of Care Code Acute Chip Tuner for [facility] Fwd Diagnoses Cervical spondylosis with myelopathy M47.12
[2021-08-22 08:06] LABS: Glucose Point of Care 158 mg/dL (70-110)
--- NOTE | 2021-08-22 09:08 | ANES.PROC ---
Anesthesia Procedures Procedure/Date: 08/22/21 Arterial Line: Time Out Performed: Yes Consent: from patient Size (Gauge): 20 Technique Used: guide wire technique Post-Procedure: dry sterile dressing placed Complications: none Site: left and radial Additional Comments: After sterile prep left arterial line placed using ultrasound for real time visualization of needle entry and catheter advancement. First two attempts visualized needle enter artery however unable to advancement. Pressure held in between attempts, no hematoma.
[2021-08-22] MEDS: vancomycin 1,000 MG SDV 1000 MG XX (10:05)
--- NOTE | 2021-08-22 13:12 | P.OP_ITS ---
Operative Report Date of procedure: August 22, 2021 Pre-op Diagnosis: Cervical spondylosis with myelopathy Post-op diagnosis: same Procedure Done: 1. C2-T2 Posterior spine fusion 2. C2-T2 instrumentation 3. C3/4 laminectomy with bilateral partial facetectomies 4. C4/5 laminectomy with bilateral partial facetectomies 5. C5/6 laminectomy with bilateral partial facetectomies 6. C6/7 laminectomy with bilateral partial facetectomies 7. use of allograft 8. use of autograft from same incision Surgeon: Musa Flores Electro Mechanical Assembler: Benedicto Garcia Electro Mechanical Assembler: The surgical appliances salesperson, Benedicto Garcia, AURY was needed for his expertise under the microscope. He was important and necessary throughout the procedure to complete in a safe and timely manner. He assisted with patient positioning prepping and draping tissue retraction suctioning of the operative field protection of the dural sac and tissue closure Anesthesia: General Estimated blood loss (mL): 200 Condition: stable Disposition: PACU Procedure: Patient is brought to the operative suite after undergoing anesthesia was placed in the prone position. All areas impingement were well-padded. Patient was then prepped and draped in normal sterile fashion. Skin incision was made from C2-T2. Dissection was made out laterally from C2-T2 over the lateral masses bilaterally with a subperiosteal dissection. Once the exposure was complete attention was then brought to placing the screws. Attention was first brought to the C2 level. A drill was used and 14 mm screws were placed into the C2 pars bilaterally. Next attention was brought to C3 bilaterally again this was done with a drill and then screws placed all 4 the screws were 14 mm screws. Next attention was brought to C4 bilaterally again 14 mm screws were placed using the drill technique. C5 was skipped bilaterally and then screws were placed into the C6 lateral mass. Bilaterally. Attention was then brought to T1 bilaterally this was done using C arm to identify the pedicle drill was used followed by the gearshift probe followed by the pedicle feeler and then 30 mm screws were placed at T1 on the left and T2 on the left. 20 mm screws were placed at T1-T2 on the right. Next attention was brought to performing the laminectomies. The lamina of C6 was taken down using the high-speed bur on the right and left side. And then the medial aspect of the C6-7 facet joint was taken down bilaterally using the Kerrison. The lamina was then taken off with a rongeur. And then the ligamentum flavum was taken up as well. The lamina of C5 was taken down using the high-speed bur on the right and left side. And then the medial aspect of the C5/6 facet joint was taken down bilaterally using the Kerrison. The lamina was then taken off with a rongeur. And then the ligamentum flavum was taken up as well. The lamina of C4 was taken down using the high-speed bur on the right and left side. And then the medial aspect of the C4/5 facet joint was taken down bilaterally using the Kerrison. The lamina was then taken off with a rongeur. And then the ligamentum flavum was taken up as well. The lamina of C3 was taken down using the high-speed bur on the right and left side. And then the medial aspect of the C3/4 facet joint was taken down bilaterally using the Kerrison. The lamina was then taken off with a rongeur. And then the ligamentum flavum was taken up as well. Attention was brought to placing the rods. Rods were connected from C2 down to T2. End caps were placed on top of all the screws. This was done bilaterally. Once the rods connected attention was then brought to decorticating the lateral gutters. High-speed bur was brought into the C2-C3-C4 C5-C6-C7 T1 and T2 lateral gutters and lamina of T1 and T2. OsteoMed bone graft was placed bilate rally. Along with part of the bone from the laminectomies. Once is completed then a deep drain was placed and wound was closed in layered fashion with 0 Vicryl and nylon suture. A Silverlon dressing was placed patient was placed in cervical collar and transferred to the PACU in stable condition.
--- NOTE | 2021-08-22 13:33 | P.PCN_ITS ---
PACU note PACU note: VSS, Good respiratory effort, report to SPARE PERSON Post-Anesthesia Exam: awake
--- NOTE | 2021-08-22 13:33 | PM.PACU ---
PACU note PACU note: VSS, Good respiratory effort, report to PRIVATE PILOT Post-Anesthesia Exam: awake
--- NOTE | 2021-08-22 14:57 | P.CONIM_ITS ---
Providers/Reason For Consult Consulting Physician/Specialty*: Musa Flores DO Attending Physician: Musa Flores DO Primary Care Provider: Rehan Clarke MD History of Present Illness History of Present Illness Jase Warren is a 65 year old male Review of Systems Const: Denies: fever(s), chills, body aches, change in appetite or diaphoresis Card: Denies: palpitations, edema, swelling of feet/ankles, dyspnea on exertion, orthopnea or leg pain with exertion Resp: Denies: dyspnea, productive cough, wheezing or pain on inspiration GI: Denies: abdominal pain, nausea, vomiting, diarrhea or constipation : Denies: flank pain or difficulty urinating Musc: Denies: extremity pain or extremity swelling Neuro: Denies: headache(s), difficulty walking or confusion Meds/Allergies Home Medications and Allergies Home Medications Medication Instructions Recorded Confirmed Last Taken Type albuterol sulfate 90 mcg/actuation 2 puff INHALATION Q6H PRN 09/24/19 08/22/21 2 Days Ago History aerosol inhaler ~01/03/20 aspirin 81 mg tablet,delayed 81 mg PO DAILY 09/24/19 08/22/21 08/19/21 History release docusate sodium 100 mg capsule 100 mg PO BID 09/24/19 08/22/21 08/21/21 History empagliflozin 25 mg tablet 25 mg PO DAILY 09/24/19 08/22/21 08/21/21 History metformin 1,000 mg tablet 1,000 mg PO BID 09/24/19 08/22/21 08/21/21 History methimazole 5 mg tablet 5 mg PO DAILY 09/24/19 08/22/21 08/21/21 History nitroglycerin 0.4 mg sublingual 0.4 mg SUBLINGUAL Q5M PRN 09/24/19 08/22/21 Unknown History tablet pantoprazole 20 mg tablet,delayed 20 mg PO DAILY 09/24/19 08/22/21 08/21/21 History release rosuvastatin 40 mg tablet 40 mg PO DAILY 09/24/19 08/22/21 08/21/21 History tamsulosin 0.4 mg capsule 0.4 mg PO DAILY 09/24/19 08/22/21 08/21/21 History liraglutide 0.6 mg/0.1 mL (18 mg/3 1.8 mg SUBCUT Q24H 10/07/19 08/22/21 08/21/21 History mL) subcutaneous pen injector tiotropium 2.5 mcg-olodaterol 2.5 2 puff INHALATION DAILY 10/07/19 08/22/21 06/21/21 History mcg/actuation mist for inhalation tramadol 50 mg tablet 50 mg PO TID PRN 10/07/19 08/22/21 08/21/21 History ipratropium 20 mcg-albuterol 100 1 puff INHALATION Q4H 12/03/19 08/22/21 1 09/20/20 History mcg/actuation mist for inhalation ergocalciferol (vitamin D2) 50 mcg 50,000 mcg PO Q7D cap 10/28/20 08/22/21 08/19/21 History (2,000 unit) capsule gabapentin 300 mg capsule 200 mg PO TID cap 10/28/20 08/22/21 08/21/21 History gabapentin 300 mg capsule 400 mg PO TID cap 10/28/20 08/22/21 08/21/21 History insulin NPH isoph U-100 human 100 80 unit SUBCUT QAM ml 10/28/20 08/22/21 08/21/21 History unit/mL (3 mL) subcutaneous pen insulin lispro 100 unit/mL 5 unit SUBCUT TID 10/28/20 08/22/21 08/21/21 History subcutaneous pen adalimumab 40 mg/0.8 mL 40 mg SUBCUT Q14D #2 ea 04/21/21 08/22/21 08/15/21 Rx subcutaneous pen kit cyanocobalamin (vitamin B-12) 1,000 mcg SUBCUT Q30D 08/10/21 08/22/21 08/13/21 History Allergies Allergy/AdvReac Type Severity Reaction Status Date / Time No Known Allergies Allergy Verified 08/22/21 07:33 Current Medications Current Medications Generic Name Dose Route Start Last Admin Trade Name Freq PRN Reason Stop Dose Admin Sodium Chloride 1,000 mls @ 30 mls/hr 08/22/21 07:30 08/22/21 08:00 Sodium Chloride 0.9% IV 08/23/21 07:29 30 mls/hr .Q24H NAYE Administration PFSH Acute PFSH: Medical History (Updated 01/03/22 @ 14:59 by Geo Lerner MD) Adhesive arachnoiditis CHF (congestive heart failure) COPD (chronic obstructive pulmonary disease) Diabetes GERD (gastroesophageal reflux disease) High risk medication use High risk medication use History of trigger finger Immunization counseling Inactive TB Inflammatory arthritis 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 Capone History of lumbar fusion History of PTCA History of spinal surgery 01/05/2020 Dr. Karla Capone: C4-C5, C5-C6 ACDFF. Hx of hand surgery Family History Father CAD (coronary artery disease) Cancer Heart disease Hypertension Other Arthritis Asthma Social History Smoking and tobacco status: current every day smoker cigarettes Packs smoked per day: 1 Alcohol intake: never Household members: spouse and family Marital status: Current occupational status: retired and disabled Current occupation: retired/disabled History of recent travel: No Vitals/I&O/Wt Last Vital Signs Temp 98.3 F 08/22/21 07:32 Pulse 102 H 08/22/21 07:32 Resp 18 08/22/21 07:32 BP 154/90 08/22/21 07:32 Pulse Ox 96 08/22/21 07:32 08/21/21 08/22/21 08/22/21 22:59 06:59 14:59 Intake Total 120 / 120 Balance 120 / 120 Weight last 48 hrs Weight 97.069 kg Physical Exam Const: COMMON NORMALS: patient oriented x3 HENMT: COMMON NORMALS: normocephalic, atraumatic, hearing grossly normal bilaterally and external ears normal HEAD & SCALP: normocephalic and atraumatic EXTERNAL EAR: Yes external ears normal Eye: COMMON NORMALS: no scleral icterus GENERAL EYE: appearance normal, both eyes and all related structures Chest: COMMONS NORMALS: normal inspection of the chest and normal palpation of entire chest wall CHEST: Yes Symmetrical chest wall rise Resp: COMMON NORMALS: normal respiratory effort, No retractions, No use of accessory muscles and clear to auscultation bilaterally EFFORT & INSPECTION: Yes symmetric chest movement AUSCULTATION: clear to auscultation bilaterally Cardio: COMMON NORMALS: regular rate, regular rhythm, S1 normal heart sound present, S2 normal heart sound present, No gallops present (Cardio), No murmurs present (Cardio), No rub (Cardio) and Peripheral pulses 2+ throughout RATE: regular rate RHYTHM: regular rhythm HEART SOUNDS: S1 normal heart sound present and S2 normal heart sound present PERIPHERAL PULSES: Peripheral pulses 2+ throughout GI: COMMON NORMALS: Normal to inspection, nondistended, normoactive bowel sounds present, Soft to palpation, non-tender, No hepatosplenomegaly present and no masses AUSCULTATION: Yes normoactive bowel sounds PALPATION: Yes Soft to palpation and Yes No hepatosplenomegaly present RECTAL EXAM: Yes deferred Extremity: COMMON NORMALS: no clubbing, cyanosis or edema and no pedal edema Neuro: COMMON NORMALS: patient oriented x3 Urinary Catheter Management^: Burch: Cath Placed During This Visit: yes Urinary Catheter Date of Insertion: 08/22/21 Urinary Catheter Time of Insertion: 09:45 A&P Assessment and plan (1) Diabetes: Status: Acute (2) CHF (congestive heart failure): Status: Acute (3) COPD (chronic obstructive pulmonary disease): Status: Acute Consult Attestations Medical Necessity Statement: Per Primary Team Procedures Arterial Line Size (Gauge): 20 Coding Level of Care Code Acute Medical Research Assistant for [facility] Fwd Diagnoses Diabetes E11.9 CHF (congestive heart failure) I50.9 COPD (chronic obstructive pulmonary disease) J44.9
--- NOTE | 2021-08-22 15:04 | ANE.PACU2 ---
Inpatient post-anesthesia follow up: Airway intact: Yes Vital signs: Temperature 98.3 F Pulse Rate 102 Respiratory Rate 18 Blood Pressure 154/90 Pulse Oximetry 96 Oxygen Delivery Me thod Room Air Oxygen Flow Rate Fraction of Inspir ed Oxygen Hydration adequate: Yes Nausea and vomiting: No Pain level: 4 Mental status: Baseline
--- NOTE | 2021-08-22 15:52 | PC.NURSE ---
called to room by patient care nurse Lucía to talk with patient. Patient states he wanted to leave because he wanted to smoke. I let patient know that we are a non smoking facility but we could talk to Dr. Flores about getting a nicotine patch or nicotine gum, he then asked when he would be able to leave. I let patient know that the normal time frame for discharge is about 24 hours. Patient said No, I am not staying that long. I want to leave This nurse educated patient on the importance of staying over night for observation after his procedure so that we can watch the output in his hemovac and rodriguez catheter as well as control his pain. Patient was educated on the risks of leaving the hospital against medical advice. He stated he didn't care and he waned to leave. This nurse notified Dr. Flores who gave verbal orders to discontinue the hemovac, rodriguez and ivs but that he didn't recommend the patient leaving. I communicated this with the patient who was still adamant about going home. Stated his was on her way and he was leaving.
--- NOTE | 2021-08-22 16:43 | PC.NURSE ---
AT APPROX. 1600 PT AND SPOUSE WERE EDU ON DRAIN AND NEEDING F/U TOMORROW 08/23/[address] ARVIZU TO HAVE DRAIN REMOVED. ARANDA AND IVS WERE REMOVED.
== END 2021-08-22 16:15 | disposition left against medical advice (07) | DRG 460 ==
LOC: OR 07:18 → MEDSURG 16:20
PROVIDERS: Admitting Provider Orthopaedic Surgery; PCP Family Medicine; Visit Provider Orthopaedic Surgery
PROC: 0RG2071 Fusion of 2 or more Cervical Vertebral Joints with Autologous Tissue Substitute, Posterior Approach, Posterior Column, Open Approach (ICD-10-PCS; CPT 63001; principal; 2021-08-22 08:25)
DX: M47.12 Other spondylosis with myelopathy, cervical region (principal); F17.210 Nicotine dependence, cigarettes, uncomplicated; I50.9 Heart failure, unspecified; J44.9 Chronic obstructive pulmonary disease, unspecified; E11.9 Type 2 diabetes mellitus without complications; K21.9 Gastro-esophageal reflux disease without esophagitis; Z79.899 Other long term (current) drug therapy; M05.79 Rheumatoid arthritis with rheumatoid factor of multiple sites without organ or systems involvement; M43.16 Spondylolisthesis, lumbar region; Z98.1 Arthrodesis status; Z53.29 Procedure and treatment not carried out because of patient's decision for other reasons
CPT/HCPCS: 36416; 51702; 72020; 76000; 82962; C1713; J0330; J0690; J1100; J2370; J2405; J2704; J3010; J3370; J3490; J7030; L0174

== ENCOUNTER 2021-08-25 12:47 | Inpatient (IN) | payer MEDICARE, MEDICAID, SELFPAY ==
[2021-08-25] VITALS (29 sets, daily range): BP systolic 81–175; BP diastolic 47–90; PULSE 92–139; RESP 20–32; TEMP 37–37.9; O2SAT 96–100; BMI 28.6
--- NOTE | 2021-08-25 | XRR_ITS ---
PROCEDURE INFORMATION: Exam: XR Chest Exam date and time: 08/25/2021 6:03 PM Age: 65 years old Clinical indication: Device placement; Ett placement (vent status); Prior surgery; Surgery date: 3-7 days post-operative; Surgery type: C2-t2 instrumentation with decompression c3-c6 on 08/22/21; Patient HX: History of recent c2-t2 instrumentation with decompression of c3-c6 performed on by Dr. Flores on 08/22/2021 emergency room with concerns for inability to take care of self and leakage around the wound site since to discharge. ; Additional info: Post intubation TECHNIQUE: Imaging protocol: XR of the chest. Views: 1 view. COMPARISON: CR XR knees AP WB w RT lmt ORTH 06/24/2020 11:40 AM FINDINGS: Tubes, catheters and devices: Endotracheal tube tip suspected 5.9 cm above the triston. Enteric tube tip extending below the left diaphragm off the field of view. Lungs: Pulmonary vascular congestion and mild interstitial edema. Pleural spaces: Unremarkable. No pleural effusion. No pneumothorax. Heart/Mediastinum: Mild cardiomegaly. Bones/joints: Unremarkable. XR/XR chest 1V portable [id number] IMPRESSION: 1. Endotracheal tube tip suspected 5.9 cm above the triston. 2. Enteric tube tip extending below the left diaphragm off the field of view. 3. Mild cardiomegaly. 4. Pulmonary vascular congestion and mild interstitial edema.
[2021-08-25 13:03] LABS: Glucose Point of Care 200 mg/dL (70-110)
--- NOTE | 2021-08-25 13:40 | CT_ITS ---
WS: [id number] CT NECK WITH CONTRAST HISTORY: eval for hardware infection TECHNIQUE: Contiguous 5 mm axial images are performed through the neck with intravenous contrast. Sag ittal and coronal reformats are also submitted. All CT scans at [facility] use at least one o f these dose optimization techniques: automated exposure control; mA and/or kV adjustment per patient size (includes targeted exams where dose is matched to clinical indication); or iterative reconstruc tion. CONTRAST: CONTRAST: Omnipaque 300; 95 mL IV. DLP: 1646.27 mGy.cm COMPARISON: Cervical spine CT 03/03/2020. There has been additional cervical surgery since the prior study from 03/03/2020. Anterior cervical fu woody is unchanged at C4, C5 and C6 with interbody spacers. New posterior hardware with facet screws a nd vertical plates now extends from C2 to T2. There is a large laminectomy defect posteriorly from C3 to C6. There is extensive air extending throughout the soft tissues of the posterior neck beginning posterior to the C2 vertebral body. There is air extending bilaterally along the facet screws and thr ough the facet joints and in the soft tissues. The air extends predominantly from the midline and to the RIGHT surrounding the muscles of the posterior RIGHT shoulder and upper back. There are also mult iple fluid collections along the surgical site. Increased fluid and abnormal soft tissue begins poste rior to the surgical defect at the C2-3 level. Ill-defined charles but there are multiple small foci of air along the soft tissue collection. The fluid and acute inflammatory changes and infectious change s extends over a length of 14 cm. The largest fluid collection with an ill formed wall measures 5.5 x 5.5 cm and is posterior to the C5 vertebral body. There are multiple soft tissue tracts extending to vargas the postsurgical debridement and laminectomy defects. There is additional subcutaneous air dissecting through the soft tissues that extends posterior and t o the LEFT over the occipital bone. No intracranial air. Soft tissue collection extends to about the posterior dura at the C5 level. There is significant shelley fact causing obscuration of soft tissue and bone detail. Soft tissue nodule measuring 11 mm in short axis diameter at the RIGHT apex was not present on a prio r lung screening study of 08/31/2020 and needs to be further evaluated. Superimposed on a background o f chronic emphysema. Atherosclerotic changes within the visualized aorta. CT/CT neck w con* [id number] IMPRESSION: 1. There is a large amount of air dissecting through the soft tissues and fasc ial planes of the posterior neck, predominantly posterior to the surgical site in the cervical spine spine and extending over the RIGHT shoulder. Necrotizing fasciitis should be considered as a possible etiology. 2. There is extensive, multifocal areas of fluid collections along the postsur gical site in the cervical spine associated with the subcutaneous air. Consiste nt with phlegmonous and postoperative abscesses. Postoperative seroma may appea r similar but with the additional subcutaneous air infection is most likely. Th e largest collection measures 5.5 x 5.5 cm. There are additional smaller collec tions through the laminectomy defects. 3. New nodule RIGHT upper lobe since 08/31/2020. Early lung neoplasm needs to b e considered. Follow-up recommended after acute illness has resolved. Notified Linnea Conley MD at 08/25/2021 2:50 PM.
--- NOTE | 2021-08-25 13:49 | ED_ITS ---
HPI - General Adult General: Chief complaint: Neck Pain/Injury Stated complaint: PAIN ALL OVER Time Seen by Provider: 08/25/21 13:08 History of Present Illness: HPI narrative: Patient is a 65-year-old male with history of recent C2-T2 instrumentation with decompression of C3-C6 performed on by Dr. Flores on 08/22/2021 emergency room with concerns for inability to take care of self and leakage around the wound site since to discharge. Patient is forced patient to come to the emergency room since he has not been able to perform any activity since his surgery. Patient decided to AGAINST MEDICAL ADVICE on Sunday08/22/2021. denies any fever or chills but has noticed the patient had a drain around the neck incision site that came out 3 days ago. Also the patient has not been able to take any of his insulin or other medicine other than tramadol for pain. Ports headache, and neck pain since the surgery. Onset: 4 days ago Duration:4 days Location:home Severity:moderate Associated symptoms: Reports headache(s); Deny chest pain, dyspnea, nausea, rash, palpitations or vomiting Review of Systems Const: Denies: fever(s) or chills Eyes: Denies: change in vision ENMT: Reports: other (neck pain, posterior surgical site drainage); Denies: mouth pain Card: Denies: chest pain or palpitations Resp: Denies: dyspnea or non-productive cough GI: Denies: abdominal pain, nausea, vomiting or diarrhea : Denies: dysuria Musc: Denies: extremity pain Skin/Breast: Denies: rash or new lesions Neuro: Reports: headache(s); Denies: weakness in extremities Psych: Reports: other (Normal mood) Martell/Lymph: Denies: easy bruising PFS ED PFSH: Medical History Adhesive arachnoiditis CHF (congestive heart failure) COPD (chronic obstructive pulmonary disease) Diabetes GERD (gastroesophageal reflux disease) High risk medication use High risk medication use History of trigger finger Immunization counseling Inactive TB Inflammatory arthritis 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 Capone History of lumbar fusion History of PTCA History of spinal surgery 01/05/2020 Dr. Karla Capone: C4-C5, C5-C6 ACDFF. Hx of hand surgery Family History Father CAD (coronary artery disease) Cancer Heart disease Hypertension Other Arthritis Asthma Social History Alcohol intake: never Household members: spouse and family Marital status: Current occupational status: retired and disabled Current occupation: retired/disabled History of recent travel: No Physical Exam Const: COMMON NORMALS: alert HENMT: COMMON NORMALS: atraumatic HEAD & SCALP: atraumatic MOUTH: moist mucous membranes not abnormal Eye: COMMON NORMALS: EOMs intact bilaterally and conjunctivae normal CONJUNCTIVA: Yes conjunctivae normal Neck/C-Spine: COMMON NORMALS: full ROM and supple Resp: COMMON NORMALS: normal respiratory effort and clear to auscultation bilaterally AUSCULTATION: clear to auscultation bilaterally Cardio: COMMON NORMALS: regular rate RATE: regular rate GI: COMMON NORMALS: Soft to palpation and non-tender PALPATION: Yes Soft to palpation Extremity: COMMON NORMALS: full ROM Neuro: SENSORIUM/ORIENTATION: Yes alert MOTOR EXAM: No Abnormal motor strength present and Other motor observations present (no focla motor deficits) Psych: COMMON NORMALS: speech normal SPEECH: Yes normal speech MOOD & AFFECT: Yes euthymic mood Skin: NARRATIVE SKIN EXAM: Posterior C2 to T2 incision site with buldging with mild leakage without any signs of wound dehiscence. Incision sites appears to be boggy SKIN IMAGES (MALE): 1. Incision site leaking Procedures Intubation Time out performed: Yes sedative: Etomidate Mg Given: 20 paralytic: Succinylcholine Mg Given: 100 Laryngoscope: Jay ET Tube Size: 8 ET Tube Uncuffed: No Tube Secured Depth (cm): 23 Tube Secured Location: teeth Tube Placement Confirmation: visualized tube passing through cords, equal breath sounds bilaterally and no breath sounds over epigastrium Patient Tolerated Procedure: well Intubation Complications: none Course Vital Signs: Vital signs: Vital Signs Temperature 98.6 F 08/25/21 13:14 Pulse Rate 117 H 08/25/21 13:14 Respiratory Rate 24 H 08/25/21 17:25 Blood Pressure 175/90 08/25/21 13:14 Pulse Oximetry 97 08/25/21 13:14 MDM - General Adult MDM Narrative: Medical decision making narrative: Patient is a 65-year-old male with a history of recent C2-T2 surgery presenting to the emergency with complaints of headache and neck pain. Arrival, patient is afebrile however noted to be tachycardic to the 110s. Incision sites had mild leakage and appears to be indurated and boggy. Patient is noted to have white count of 13.8K. Findings of possible's concerning for sepsis. CT head and neck showed possible signs of necrotizing infection. Patient status post IVF, cefepime, vancomycin, and clindamycin. Patient only received 1L of NS given hx of heart failure and decision was made to not give 30cc/kg of IVF. Was immediately discussed with Dr. Flores who tells me that given recent surgery, this is likely postoperative infection versus early necrotizing infection. Dr. Flores recommended admitting patient to medicine with IV antibiotics and keeping n.p.o. at midnight for washout tomorrow morning in the OR. Shortly prior to 3 PM, patient elected to leave AGAINST MEDICAL ADVICE. Dr. Flores spoke with the patient on the phone and convince patient to stay in the hospital. Disposition: Admission Around 5 PM, patient become unstable. Patient was noted to be tachycardic to the 150s diaphoretic, and altered. Decision was made to intubate for airway protection. Postoperatively, CT head and CTA chest was ordered. Will be mated to the ICU for management of narrow complex tachycardia, altered mental status, respiratory failure, and necrotizing soft tissue infection. Lab Data: Labs: Lab Results 08/25/21 08/25/21 08/25/21 13:01 13:12 13:12 WBC 13.8 10^3/uL H 10 ^3/uL (4.0-10.0) RBC 4.33 10^6/uL 10^6 /uL (4.1-5.3) Hgb 14.8 g/dL g/dL (11.7-16.6) Hct 42.5 % % (42.0-52.0) MCV 98.2 fl H fl (80-94) MCH 34.2 pg H pg (28.0-34.0) MCHC 34.8 g/dL g/dL (30.0-36.0) RDW 13.8 % % (12.1-15.1) Plt Count 198 10^3/cmm 10^3 /cmm (130-400) MPV 12.6 fL H fL (7.4-10.4) Neut % (Auto) 83.7 % % Lymph % (Auto) 7.2 % % [place] % (Auto) 8.2 % % Eos % (Auto) 0.1 % % Baso % (Auto) 0.4 % % Neut # (Auto) 11.59 10^3/uL H 1 0^3/uL (1.8-7.7) Lymph # (Auto) 1.0 10^3/uL 10^3/ uL (0.8-4.8) [place] # (Auto) 1.1 10^3/uL H 10^ 3/uL (0.2-0.9) Eos # (Auto) 0.0 10^3/uL 10^3/ uL (0.0-0.8) Baso # (Auto) 0.1 10^3/uL 10^3/ uL (0.0-0.1) Nucleated RBC % (a uto) 0 % % Nucleated RBCs # 0.0 /100WBC /100W BC APTT Cancelled Sodium Potassium Chloride Carbon Dioxide Anion Gap BUN Creatinine GFR Calculation Glucose POC Glucose 200 mg/dL H mg/dL (70-110) Calculated Osmolal ity Lactate Calcium C-Reactive Protein 08/25/21 08/25/21 08/25/21 13:12 13:12 15:09 WBC RBC Hgb Hct MCV MCH MCHC RDW Plt Count MPV Neut % (Auto) Lymph % (Auto) [place] % (Auto) Eos % (Auto) Baso % (Auto) Neut # (Auto) Lymph # (Auto) [place] # (Auto) Eos # (Auto) Baso # (Auto) Nucleated RBC % (a uto) Nucleated RBCs # APTT 26.7 SECONDS SECO NDS (23.9-36.7) Sodium Cancelled Potassium Cancelled Chloride Cancelled Carbon Dioxide Cancelled Anion Gap Cancelled BUN Cancelled Creatinine Cancelled GFR Calculation Cancelled Glucose Cancelled POC Glucose Calculated Osmolal ity Cancelled Lactate Cancelled Calcium Cancelled C-Reactive Protein Cancelled 08/25/21 08/25/21 15:09 15:09 WBC RBC Hgb Hct MCV MCH MCHC RDW Plt Count MPV Neut % (Auto) Lymph % (Auto) [place] % (Auto) Eos % (Auto) Baso % (Auto) Neut # (Auto) Lymph # (Auto) [place] # (Auto) Eos # (Auto) Baso # (Auto) Nucleated RBC % (a uto) Nucleated RBCs # APTT Sodium 135 mmol/L L mmol /L (136-145) Potassium 3.7 mmol/L mmol/L (3.5-5.1) Chloride 98 mmol/L mmol/L (98-107) Carbon Dioxide 19 mmol/L L mmol/ L (22-29) Anion Gap 21.7 H (5-19) BUN 15 mg/dL mg/dL (8-23) Creatinine 0.8 mg/dL mg/dL (0.7-1.2) GFR Calculation 97.0 mL/min mL/mi n (90-130) Glucose 184 mg/dL H mg/dL (65-115) POC Glucose Calculated Osmolal ity 286 mOsm/kg mOsm/ kg (285-295) Lactate 1.5 mmol/L mmol/L (0.5-2.2) Calcium 9.3 mg/dL mg/dL (8.5-10.5) C-Reactive Protein 186.1 mg/L H mg/L (0.0-4.9) Imaging Data^: Other Imaging: Radiologist's impression: [address] [id number] Scan ReportSigned Patient: Jase Warren #: [id number]: 6Acct#:[id number]/Sex: 65 / MADM Date: 08/25/21Loc: ERRoom/Bed:Attending Dr: Ordering Provider/Ordering MD: Linnea Conley MD Date of Service: 08/25/21 Procedure(s): CT neck w con* [id number] Accession Number(s): [id number] Report Number: [id number] WS: [id number] CT NECK WITH CONTRAST HISTORY: eval for hardware infection TECHNIQUE: Contiguous 5 mm axial images are performed through the neck with intravenous contrast. Sagittal and coronal reformats are also submitted. All CT scans at [facility] use at least one of these dose optimization techniques: automated exposure control; mA and/or kV adjustment per patient size (includes targeted exams where dose is matched to clinical indication); or iterative reconstruction. CONTRAST: CONTRAST: Omnipaque 300; 95 mL IV. DLP: 1646.27 mGy.cm COMPARISON: Cervical spine CT 03/03/2020. There has been additional cervical surgery since the prior study from 03/03/2020. Anterior cervical fusion is unchanged at C4, C5 and C6 with interbody spacers. New posterior hardware with facet screws and vertical plates now extends from C2 to T2. There is a large laminectomy defect posteriorly from C3 to C6. There is extensive air extending throughout the soft tissues of the posterior neck beginning posterior to the C2 vertebral body. There is air extending bilaterally along the facet screws and through the facet joints and in the soft tissues. The air extends predominantly from the midline and to the RIGHT surrounding the muscles of the posterior RIGHT shoulder and upper back. There are also multiple fluid collections along the surgical site. Increased fluid and abnormal soft tissue begins posterior to the surgical defect at the C2-3 level. Ill-defined charles but there are multiple small foci of air along the soft tissue collection. The fluid and acute inflammatory changes and infectious changes extends over a length of 14 cm. The largest fluid collection with an ill formed wall measures 5.5 x 5.5 cm and is posterior to the C5 vertebral body. There are multiple soft tissue tracts extending toward the postsurgical debridement and laminectomy def ects. There is additional subcutaneous air dissecting through the soft tissues that extends posterior and to the LEFT over the occipital bone. No intracranial air. Soft tissue collection extends to about the posterior dura at the C5 level. There is significant artifact causing obscuration of soft tissue and bone detail. Soft tissue nodule measuring 11 mm in short axis diameter at the RIGHT apex was not present on a prior lung screening study of 08/31/2020 and needs to be further evaluated. Superimposed on a background of chronic emphysema. Atherosclerotic changes within the visualized aorta. CT/CT neck w con* [id number] IMPRESSION: 1. There is a large amount of air dissecting through the soft tissues and fascial planes of the posterior neck, predominantly posterior to the surgical site in the cervical spine spine and extending over the RIGHT shoulder. Necro tizing fasciitis should be considered as a possible etiology. 2. There is extensive, multifocal areas of fluid collections along the postsurgical site in the cervical spine associated with the subcutaneous air. Consistent with phlegmonous and postoperative abscesses. Postoperative seroma may appear similar but with the additional subcutaneous air infection is most likely. The largest collection measures 5.5 x 5.5 cm. There are additional smaller collections through the laminectomy defects. 3. New nodule RIGHT upper lobe since 08/31/2020. Early lung neoplasm needs to be considered. Follow-up recommended after acute illness has resolved. Notified Linnea Conley MD at 08/25/2021 2:50 PM. 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
[2021-08-25 14:15] LABS: Basophils # 0.1 10^3/uL (0.0-0.1); Basophils % 0.4 %; Eosinophils % 0.1 %; Hematocrit 42.5 % (42.0-52.0); Hemoglobin 14.8 g/dL (11.7-16.6); Lymphocytes % 7.2 %; Mean Corpuscular HGB Conc 34.8 g/dL (30.0-36.0); Mean Corpuscular Hemoglobin 34.2 pg (28.0-34.0); Mean Corpuscular Volume 98.2 fl (80-94); Mean Platelet Volume 12.6 fL (7.4-10.4); Monocytes # 1.1 10^3/uL (0.2-0.9); Monocytes % 8.2 %; Neutrophils # 11.59 10^3/uL (1.8-7.7); Neutrophils % 83.7 %; Nucleated Red Blood Cells % 0 %; Platelet Count 198 10^3/cmm (130-400); Red Blood Count 4.33 10^6/uL (4.1-5.3); Red Cell Distribution Width 13.8 % (12.1-15.1); White Blood Count 13.8 10^3/uL (4.0-10.0)
[2021-08-25] MEDS: iohexol 300 mg/mL 100 mL Btl IV (14:15)
[2021-08-25] MEDS: sodium chloride 0.9% 1,000 ML 999 ML IV (14:47)
[2021-08-25] MEDS: cefepime 1,000 MG in sodium chloride 0.9% (plus) 50 ML 100 MG IV (14:47)
--- NOTE | 2021-08-25 14:52 | PC.NURSE ---
Pt smell as if he has wet himself. When attempt was made to change and gown pt, pt refused becoming very agitated and angry.
[2021-08-25 15:27] LABS: Partial Thromboplastin Time 26.7 SECONDS (23.9-36.7)
[2021-08-25] MEDS: clindamycin 600 MG/50 ML PREMIX 100 MG IV (15:27)
[2021-08-25 15:32] LABS: Anion Gap 21.7 (5-19); Blood Urea Nitrogen 15 mg/dL (8-23); C Reactive Protein 186.1 mg/L (0.0-4.9); Calcium 9.3 mg/dL (8.5-10.5); Carbon Dioxide 19 mmol/L (22-29); Chloride 98 mmol/L (98-107); Glucose 184 mg/dL (65-115); Lactate (Lactic Acid level) 1.5 mmol/L (0.5-2.2); Osmolality Calculated 286 mOsm/kg (285-295); Potassium 3.7 mmol/L (3.5-5.1); Sodium 135 mmol/L (136-145)
[2021-08-25] MEDS: LORazepam 2 mg/mL INJ 1 mL IVP (15:50)
--- NOTE | 2021-08-25 17:00 | ECG_ITS ---
[facility] Test Date: 2021-08-25 Pat Name: Jase Warren Department: Room: ICU01 Gender: Male Nutrition Associate: : 1955 Requested By: Geo Lerner Order Number: [id number] Leslie MD: Arlyn Staton M.D. Measurements Intervals [place] Rate: 159 P: 44 MD: 98 QRS: 261 QRSD: 108 T: 68 QT: 285 QTc: 464 Interpretive Statements SINUS TACHYCARDIA WITH SHORT MD INTERVAL, POSSIBLE ATRIAL FLUTTER RIGHT AXIS DEVIATION [QRS AXIS > 100] PATTERN CONSISTENT WITH PULMONARY DISEASE RIGHT BUNDLE BRANCH BLOCK [120+ ms QRS DURATION, UPRIGHT V1, 40+ ms S IN I/aVL/V4/V5/V6] CRITICAL TEST RESULT Compared to ECG 08/10/2021 11:03:37 Right-axis deviation now present Right bundle-branch block now present Sinus rhythm no longer present Incomplete right bundle-branch block no longer present Left anterior fascicular block no longer present Electronically Signed On 08-26-2021 17:52:14 DIRECTOR OF DIVERSITY AND INCLUSION by Arlyn Staton M.D. [email or web address]
--- NOTE | 2021-08-25 17:19 | CTR_ITS ---
PROCEDURE INFORMATION: Exam: CTA Chest With Contrast Exam date and time: 08/25/2021 5:19 PM Age: 65 years old Clinical indication: Shortness of breath; Additional info: Eval for pe TECHNIQUE: Imaging protocol: Computed tomographic angiography of the chest with contrast. 3D rendering (Not supervised by radiologist): MIP and/or 3D reconstructed images were created by the technologist. Radiation optimization: All CT scans at this facility use at least one of these dose optimization techniques: automated exposure control; mA and/or kV adjustment per patient size (includes targeted exams where dose is matched to clinical indication); or iterative reconstruction. Contrast material: OMNI 350; Contrast volume: 95 ml; Contrast route: INTRAVENOUS (IV); COMPARISON: CR XR chest 1V portable [id number] 08/25/2021 5:03 PM RADIATION DOSE METRICS: Total DLP (mGy-cm): 626.37 FINDINGS: Tubes, catheters and devices: Apparent right-sided central venous catheter tip minimally in the mid right subclavian artery. Enteric tube tip in the stomach. Pulmonary arteries: Several right-sided pulmonary arteries measuring up to 12.2 mm in the upper lobe. Aorta: Unremarkable. No aortic aneurysm. No aortic dissection. Lungs: Emphysematous changes. Patchy bilateral largely dependent left greater than right airspace infiltrates. Pleural spaces: Small left pleural effusion. Heart: Unremarkable. No cardiomegaly. No pericardial effusion. Lymph nodes: Scattered prominent subcentimeter mediastinal lymph nodes, nonspecific. Kidneys and ureters: Left kidney cyst. Stomach and bowel: Constipation. Bones/joints: Unremarkable. No acute fracture. Soft tissues: Subcutaneous emphysema seen about the right upper posterior back, nonspecific. CT/CT angio chest PE protcl [id number] IMPRESSION: 1. Negative for pulmonary embolus. 2. Subcutaneous emphysema seen about the right upper posterior back, nonspecific. 3. Apparent right-sided central venous catheter tip minimally in the mid right subclavian artery. 4. Scattered prominent subcentimeter mediastinal lymph nodes, nonspecific. 5. Small left pleural effusion. 6. Emphysematous changes. 7. Patchy bilateral largely dependent left greater than right airspace infiltrates. 8. Several right-sided pulmonary arteries measuring up to 12.2 mm in the upper lobe. Highly suspicious nodule(s). Consider non-emergent PET/CT, or tissue sampling.(Reference: Carlee) 9. Enteric tube tip in the stomach. 10. Constipation. 11. Left kidney cyst. COMMENTS: Consistent with the [employer]'s Incidental Findings Committee white paper (J Am Cl Radiol 2018): Any incidental renal lesion less than 1 cm or classified as too small to characterize, or any incidental cystic renal lesion characterized as simple-appearing, is likely benign. No follow-up imaging is recommended for these lesions per consensus recommendations based on imaging criteria. REFERENCES: Carlee Mccoy, et al. Guidelines for Management of Incidental Pulmonary Nodules Detected on CT Images: From the Fleischner Society 2017. Radiology. 2017;284(1):228-243.
--- NOTE | 2021-08-25 17:19 | CTR_ITS ---
PROCEDURE INFORMATION: Exam: CT Head Without Contrast Exam date and time: 08/25/2021 5:19 PM Age: 65 years old Clinical indication: Altered mental status/memory loss; Prior surgery; Surgery date: 3-7 days post-operative; Surgery type: Neck; Additional info: Eval for brain bleed TECHNIQUE: Imaging protocol: Computed tomography of the head without contrast. Radiation optimization: All CT scans at this facility use at least one of these dose optimization techniques: automated exposure control; mA and/or kV adjustment per patient size (includes targeted exams where dose is matched to clinical indication); or iterative reconstruction. COMPARISON: CR XR knees AP WB w RT lmt ORTH 06/24/2020 11:40 AM RADIATION DOSE METRICS: Total DLP (mGy-cm): 1081.88 FINDINGS: Brain: No hemorrhage. Mild diffuse cerebral atrophy and sequela of chronic small vessel ischemic disease. No mass effect. Cerebral ventricles: No ventriculomegaly. Paranasal sinuses: Visualized sinuses are unremarkable. No fluid levels. Mastoid air cells: Visualized mastoid air cells are well aerated. Bones/joints: Unremarkable. No acute fracture. Soft tissues: Unremarkable. CT/CT head wo con* [id number] IMPRESSION: 1. No acute intracranial abnormality. 2. Mild diffuse cerebral atrophy and sequela of chronic small vessel ischemic disease.
--- NOTE | 2021-08-25 17:38 | PM.HP ---
Providers/Chief Complaint Primary Care Provider: Rehan Clarke MD Chief Complaint: PAIN ALL OVER History of Present Illness Jase Warren is a 65 year old male with PMH of CAD S/P Stent, HTN, DM, COPD , CHF , recent l C2-T2 Posterior spine fusion on 08/22 came in today with c/o headache as well as neck pain and stiffness after he left AMA on 08/22. Patient was recently seen in orthopedic clinic after the procedure.When I saw the patient patient was extremely confused likley 2/ to the recent ativan given in the ER. was at bedside and she told that he was confused before ativan was given to him.History was mainly provided by his as well as from chart review. Patient condition rapidly worsen in the ER after sometime and I was called by the ER Physician,given the sudden change in his clinical status.Upon my arrival patient was in impeding respiratory failure he was significantly desaturating and was having agonal breathing, he was immediately ventilated with ambu bag, and RSI was done without any complication with accurate E.T tube placement,patient was placed on ventilator subsequently. In the ER C.T Imaging studies were done which included CT Head Without Contrast : No acute intracranial pathology CTA chest : No P/E , Negative for pulmonary embolus. Subcutaneous emphysema seen about the right upper posterior back, nonspecific. Scattered prominent subcentimeter mediastinal lymph nodes, nonspecific. Small left pleural effusion. Emphysematous changes. Patchy bilateral largely dependent left greater than right airspace infiltrates. C.T Neck : There is a large amount of air dissecting through the soft tissues and fascial planes of the posterior neck, predominantly posterior to the surgical site in the cervical spine spine and extending over the RIGHT shoulder. Necrotizing fasciitis should be considered as a possible etiology. There is extensive, multifocal areas of fluid collections along the postsurgical site in the cervical spine associated with the subcutaneous air. Consistent with phlegmonous and postoperative abscesses. Postoperative seroma may appear similar but with the additional subcutaneous air infection is most likely. The largest collection measures 5.5 x 5.5 cm. There are additional smaller collections through the laminectomy defects. EKG : Is suggestive Possible A.Flutter with RVR Review of Systems General: Reports: ROS unobtainable due to medical condition Medications/Allergies Home Medications Medication Instructions Recorded Confirmed Last Taken Type albuterol sulfate 90 mcg/actuation 2 puff INHALATION Q6H PRN 09/24/19 08/26/21 2 Days Ago History aerosol inhaler ~01/03/20 aspirin 81 mg tablet,delayed 81 mg PO DAILY 09/24/19 08/26/21 08/19/21 History release docusate sodium 100 mg capsule 200 mg PO BID 09/24/19 08/26/21 08/21/21 History empagliflozin 25 mg tablet 25 mg PO DAILY 09/24/19 08/26/21 08/21/21 History metformin 1,000 mg tablet 1,000 mg PO BID 09/24/19 08/26/21 08/21/21 History methimazole 5 mg tablet 2.5 mg PO BID 09/24/19 08/26/21 08/21/21 History nitroglycerin 0.4 mg sublingual 0.4 mg SUBLINGUAL Q5M PRN 09/24/19 08/26/21 Unknown History tablet rosuvastatin 40 mg tablet 40 mg PO DAILY 09/24/19 08/26/21 08/21/21 History tamsulosin 0.4 mg capsule 0.4 mg PO DAILY 09/24/19 08/26/21 08/21/21 History tiotropium 2.5 mcg-olodaterol 2.5 2 puff INHALATION DAILY PRN 10/07/19 08/26/21 06/21/21 History mcg/actuation mist for inhalation tramadol 50 mg tablet 100 mg PO TID PRN 10/07/19 08/26/21 08/21/21 History ipratropium 20 mcg-albuterol 100 1 puff INHALATION DAILY PRN 12/03/19 08/26/21 07/20/21 History mcg/actuation mist for inhalation adalimumab 40 mg/0.8 mL 40 mg SUBCUT Q14D #2 ea 04/21/21 08/26/21 08/15/21 Rx subcutaneous pen kit cyanocobalamin (vitamin B-12) 1,000 mcg SUBCUT Q30D 08/10/21 08/26/21 08/13/21 History ergocalciferol (vitamin D2) 50,000 unit PO Q7D 08/26/21 08/26/21 Unknown History gabapentin 400 mg PO TID 08/26/21 08/26/21 Unknown History gabapentin 800 mg PO TID 08/26/21 08/26/21 Unknown History insulin NPH isoph U-100 human See Rx Instructions .ROUTE .COMPLEX 08/26/21 08/26/21 Unknown History [Novolin N NPH U-100 Insulin] insulin aspart U-100 [Novolog See Rx Instructions .ROUTE .COMPLEX 08/26/21 08/26/21 Unknown History Flexpen U-100 Insulin] leflunomide 20 mg PO DAILY 08/26/21 08/26/21 Unknown History liraglutide [Victoza 3-Karl] 1.8 mg SUBCUT DAILY 08/26/21 08/26/21 Unknown History pantoprazole 40 mg PO DAILY 08/26/21 08/26/21 Unknown History prednisone 10 mg PO . 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 Capone History of lumbar fusion History of PTCA History of spinal surgery 01/05/2020 Dr. Karla Capone: C4-C5, C5-C6 ACDFF. Hx of hand surgery Family History Father CAD (coronary artery disease) Cancer Heart disease Hypertension Other Arthritis Asthma Social History Alcohol intake: never Household members: spouse and family Marital status: Current occupational status: retired and disabled Current occupation: retired/disabled History of recent travel: No Vitals/I&O/Wt Last Vital Signs Temp 98.6 F 08/25/21 13:14 Pulse 117 H 08/25/21 13:14 Resp 24 H 08/25/21 17:25 BP 175/90 08/25/21 13:14 Pulse Ox 97 08/25/21 13:14 08/25/21 08/25/21 08/25/21 06:59 14:59 22:59 Intake Total 100 / 100 Balance 100 / 100 Weight last 48 hrs Weight 98.43 kg Physical Exam Narrative: EXAM NARRATIVE: Currently patient is extremely confused and not making sense HENMT: COMMON NORMALS: normocephalic and atraumatic HEAD & SCALP: normocephalic and atraumatic Resp: COMMON NORMALS: clear to auscultation bilaterally AUSCULTATION: clear to auscultation bilaterally Cardio: COMMON NORMALS: regular rate, regular rhythm, S1 normal heart sound present, S2 normal heart sound present, No gallops present (Cardio), No murmurs present (Cardio), No rub (Cardio) and Peripheral pulses 2+ throughout RATE: regular rate RHYTHM: regular rhythm HEART SOUNDS: S1 normal heart sound present and S2 normal heart sound present PERIPHERAL PULSES: Peripheral pulses 2+ throughout GI: COMMON NORMALS: Normal to inspection, nondistended, normoactive bowel sounds present, Soft to palpation, non-tender, No hepatosplenomegaly present and no masses AUSCULTATION: Yes normoactive bowel sounds PALPATION: Yes Soft to palpation and Yes No hepatosplenomegaly present RECTAL EXAM: Yes deferred Extremity: COMMON NORMALS: no clubbing, cyanosis or edema and no pedal edema Data : 08/26/21 04:32 08/26/21 04:32 Micro: Microbiology 08/25/21 14:01 Blood Culture - Preliminary Blood SPECIMEN COLLECTED 08/25/21 13:38 Blood Culture - Preliminary Blood SPECIMEN COLLECTED A&P Assessment and plan (1) Necrotizing fasciitis: Status: Acute (2) CHF (congestive heart failure): Status: Acute (3) Acute encephalopathy: Status: Acute (4) COPD (chronic obstructive pulmonary disease): Status: Acute (5) Diabetes: Status: Acute (6) Status post cervical spinal fusion: Status: Acute (7) Hypertension: Status: Acute Additional A&P Information 65 year old male with PMH of CAD S/P Stent, HTN, DM, COPD , CHF , recent l C2-T2 Posterior spine fusion on 08/22 came in today with c/o headache as well as neck pain and stiffness after he left AMA on 08/22. # Wound dehiscence with possible underlying infection: Follow blood culture ESR : CRP: 186 Procalcitonin:0.77 Currently the plan is to continue with broad-spectrum IV antibiotics Orthopedic on board. #CT suggestive of possible necrotizing fasciitis: Cannot conclusively rule out post op complication. Plan as above #Heart failure: Follow 2D echo Currently compensated Monitor intake output charting #COPD: DuoNebs Supplemental oxygen as needed #History of coronary artery disease status post stent: #Diabetes: Sliding scale insulin Monitor fingerstick glucose #Acute encephalopathy: Acute encephalopathy : Cannot completely rule out DIGITAL ASSOCIATE MEDIA DIRECTOR involvement: Currently patient is intubated sedated on mechanical ventilation. Antibiotics as above CODE STATUS: Full code DVT prophylaxis: Lovenox 40 MG subcu daily Procedures Intubation Time out performed: Yes Sedative: etomidate Mg given: 20 Paralytic: succinylcholine Mg given: 100 Laryngoscope: fiber optic video scope ET tube uncuffed: Yes Tube placement confirmation: visualized tube passing through cords, equal breath sounds bilaterally, no breath sounds over epigastrium and color change noted Patient tolerated procedure: well and no complications Attestations Medical Necessity Statement*: Patient needs to be in hospital for the management of Possible N/F,hardware infection,Acute encephalopathy.Anticiaped LOS Greater then 2 midnights. Time Spent in Patient Care: Greater than 35 minutes Critical Care Time: Critical Care Time (min): 100 Other Attestations: The high probability of a clinically significant, sudden or life threatening deterioration of the patient's [] system(s) required my full and direct attention, intervention and personal management. The critical care time is as shown. This time is in addition to time spent performing any reported procedures but includes the following: [x] Data and vital sign review and interpretation [x] Patient assessment, examination and intervention [x] Documentation [x] Medication orders and management Coding Level of Care Code Acute [employer] Worker for [facility] Exam Detailed Diagnoses Necrotizing fasciitis M72.6 CHF (congestive heart failure) I50.9 Acute encephalopathy G93.40 COPD (chronic obstructive pulmonary disease) J44.9 Diabetes E11.9 Status post cervical spinal fusion Z98.1 Hypertension I10
[2021-08-25 17:44] LABS: ABG PH Result 7.32 (7.35-7.45); Alveolar-Arterial Oxygen Gradi 33.4 mmHg (5-10); Arterial Blood Gas Hematocrit 41.1 % (42-52); Base Excess ABG -6.7 mmol/L (-2.0-2.0); Blood Gas Allen Test Pos; Blood Gas Operator Identificat MONRO; Blood Gas Sample Site Radial, right; Blood Gas Sample Type Arterial; Carboxyhemoglobin 0.1 %THgb (0.4-20.1); HCO3 ABG 18.8 mmol/L (22-26); HGB O2 Sat 96.6 % (95-100); Ionized Calcium Level - ABG 1.1 mmol/L (1.1-1.4); Methemoglobin 1.3 % (0.4-1.5); Oxygen Device VENT; Oxygen Saturation ABG 97.9; Potassium Level - ABG 3.5 mmol/L (3.5-5.0); Total Hemoglobin 13.4 g/dL (14-18)
[2021-08-25] MEDS: iohexol 350 mg/mL 100 mL Btl IV (18:13)
[2021-08-25] MEDS: propofol 1,000 MG/100 ML INJ 17.72 MG IV (18:37)
[2021-08-25] MEDS: sodium chloride 0.9% 1,000 ML 100 ML IV (18:46)
--- NOTE | 2021-08-25 18:46 | PC.NURSE ---
Pt presented to ER with neck and back pain. Upon insertion of 1st IV, pt said he wanted to leave AMA. Pt was convinced to stay after and several staff members encouraged him to stay. Later, pt became agitated and was prescribed ativan. Pt recieved 2mg of ativan. Shortly afterward, pt started active confused, and Pt Pt looked like he was choking but, answered questions appropriately. Pt O2 was 98% then dropped to 93, 78, 71, continuing to drop to 66%. Pt was intubated at 1701 - 23 a the lip, 8in tube Propropal drip started at 1706 Pt recieved Adenosine, 6mg at 1716 Pt recieved Cardizem, 5mg at 1723 Adenosine had no effect Pt was HR of 135 - after Cardizem and transfer to ICU Pt was 109 End of note
[2021-08-25] MEDS: enoxaparin 40 mg/0.4 mL Syringe SUBCUT (18:48)
[2021-08-25] MEDS: meropenem 2,000 MG in sodium chloride 0.9% (100 ml) 100 ML 280 MG IV (18:52)
[2021-08-25 19:07] LABS: Glucose Point of Care 264 mg/dL (70-110)
[2021-08-25 19:56] LABS: Glucose Point of Care 238 mg/dL (70-110)
--- NOTE | 2021-08-25 20:39 | PC.NURSE ---
Approximately 1930 This nurse clarified if 1400 dose or 1930 dose of Vancomycin should be administered, Rx advised this nurse to non admind the 1400 dose and administer the 1930 dose
[2021-08-25] MEDS: insulin lispro 100 unit/1 mL SUBCUT (20:41)
--- NOTE | 2021-08-25 20:54 | XRR_ITS ---
PROCEDURE INFORMATION: Exam: XR Abdomen Exam date and time: 08/25/2021 8:54 PM Age: 65 years old Clinical indication: Device placement; Non-vascular device; Other: Og placement; Prior surgery; Surgery type: Back; Additional info: Og tube placement TECHNIQUE: Imaging protocol: XR of the abdomen. Views: Frontal supine view of the abdomen. 1 View. COMPARISON: CR XR knees AP WB w RT lmt ORTH 06/24/2020 11:40 AM FINDINGS: Tubes, catheters and devices: Enteric tube tip seen over the gastric bubble. Gastrointestinal tract: Normal. No bowel dilation. Bones/joints: Unremarkable. XR/XR abdomen 1V* [id number] IMPRESSION: Enteric tube tip seen over the gastric bubble.
[2021-08-25] MEDS: propofol 1,000 MG/100 ML INJ 20.67 MG IV (21:55)
[2021-08-25] MEDS: vancomycin 1,250 MG/250 ML PIGGYBACK 250 MG IV (21:57)
[2021-08-26] VITALS (103 sets, daily range): BP systolic 82–131; BP diastolic 43–79; PULSE 77–135; RESP 14–25; TEMP 36.7–38.4; O2SAT 90–99
[2021-08-26] MEDS: meropenem 2,000 MG in sodium chloride 0.9% (100 ml) 100 ML 280 MG IV ×3 (02:35→17:19)
[2021-08-26] MEDS: propofol 1,000 MG/100 ML INJ 20.67 MG IV (02:39)
[2021-08-26] MEDS: acetaminophen 325 mg Tablet 650 MG PO ×2 (02:48→19:43)
[2021-08-26] MEDS: vancomycin 1,250 MG/250 ML PIGGYBACK 250 MG IV ×3 (04:18→19:44)
[2021-08-26] MEDS: sodium chloride 0.9% 1,000 ML 100 ML IV (05:21)
[2021-08-26 05:34] LABS: ABG PCO2 34.2 mmHg (35-45); ABG PH Result 7.37 (7.35-7.45); Alveolar-Arterial Oxygen Gradi 22.5 mmHg (5-10); Arterial Blood Gas Hematocrit 44.6 % (42-52); Base Excess ABG -4.5 mmol/L (-2.0-2.0); Blood Gas Allen Test Pos; Blood Gas Operator Identificat JB; Blood Gas Sample Site Radial, right; Blood Gas Sample Type Arterial; HCO3 ABG 19.9 mmol/L (22-26); HGB O2 Sat 91.4 % (95-100); Ionized Calcium Level - ABG 1.2 mmol/L (1.1-1.4); Oxygen Device VENT; Oxygen Saturation ABG 92.3; PO2 ABG 71.8 mmHg (80.0-100.0); Total Hemoglobin 14.5 g/dL (14-18)
[2021-08-26 05:40] LABS: Basophils # 0.1 10^3/uL (0.0-0.1); Basophils % 0.7 %; Eosinophils # 0.1 10^3/uL (0.0-0.8); Eosinophils % 0.4 %; Lymphocytes # 1.4 10^3/uL (0.8-4.8); Lymphocytes % 11.6 %; Mean Corpuscular HGB Conc 32.4 g/dL (30.0-36.0); Mean Corpuscular Hemoglobin 33.4 pg (28.0-34.0); Mean Corpuscular Volume 103.1 fl (80-94); Mean Platelet Volume 11.7 fL (7.4-10.4); Monocytes # 1.3 10^3/uL (0.2-0.9); Monocytes % 11.1 %; Neutrophils # 9.01 10^3/uL (1.8-7.7); Neutrophils % 75.7 %; Nucleated Red Blood Cells % 0 %; Platelet Count 194 10^3/cmm (130-400); Red Blood Count 3.59 10^6/uL (4.1-5.3); Red Cell Distribution Width 14.2 % (12.1-15.1); White Blood Count 11.9 10^3/uL (4.0-10.0)
[2021-08-26 05:56] LABS: Alanine Aminotransferase 6 U/L (0-41); Albumin Level 2.9 g/dL (3.5-5.2); Alkaline Phosphatase 72 IU/L (40-130); Anion Gap 20.1 (5-19); Aspartate Amino Transferase 13 U/L (0-40); Blood Urea Nitrogen 20 mg/dL (8-23); Calcium 8.5 mg/dL (8.5-10.5); Carbon Dioxide 17 mmol/L (22-29); Chloride 106 mmol/L (98-107); Globulin 2.8 g/dL (1.3-4.6); Glucose 123 mg/dL (65-115); Osmolality Calculated 294 mOsm/kg (285-295); Potassium 3.1 mmol/L (3.5-5.1); Sodium 140 mmol/L (136-145); Total Bilirubin 0.5 mg/dL (0.15-1.2); Total Protein 5.7 g/dL (6.6-8.7)
[2021-08-26 06:02] LABS: Procalcitonin 0.77 ng/mL (0-0.5)
[2021-08-26 06:03] LABS: Magnesium 2.1 mg/dL (1.7-2.3)
--- NOTE | 2021-08-26 07:06 | P.ANESASSM_ITS ---
Pre-Anesthetic Assessment Pre-Anesthetic Assessment: Height/Weight: Height 1.85 m Weight 98.43 kg Temp Pulse Resp BP Pulse Ox 99.2 F 86 19 H 116/57 96 08/26/21 04:21 08/26/21 05:52 08/26/21 06:06 08/26/21 00:15 08/26/21 06:06 Preop Diagnosis: Cervical spondylosis with myelopathy Proposed Procedure: Operation Date: 08/26/21 08:00 Proposed Procedures p Incision and Drainage neck s/p fusion(Not Applicable) - Musa Flores DO Familial anesthetic complications: None Was Beta Sonam taken within 24 angi rs: N/A Was Clonidine taken within 24 hours: N/A Social: Social History: Tobacco Exam: Pre-Anes Outpt Exam: clear to auscultation bilaterally (Course breath sounds b/l) and regular rate & rhythm Additional Exam Findings (including area of procedure): Patient intubated and sedated Airway: Additional comments: Intubated and sedated Pulmonary: Pulmonary: COPD Comments: CTA Chest CT/CT angio chest PE protcl [id number] IMPRESSION: 1. Negative for pulmonary embolus. 2. Subcutaneous emphysema seen about the right upper posterior back, nonspecific. 3. Apparent right-sided central venous catheter tip minimally in the mid right subclavian artery. 4. Scattered prominent subcentimeter mediastinal lymph nodes, nonspecific. 5. Small left pleural effusion. 6. Emphysematous changes. 7. Patchy bilateral largely dependent left greater than right airspace infiltrates. 8. Several right-sided pulmonary arteries measuring up to 12.2 mm in the upper lobe. Highly suspicious nodule(s). Consider non-emergent PET/CT, or tissue sampling.(Reference: [facility]) 9. Enteric tube tip in the stomach. 10. Constipation. 11. Left kidney cyst. CV/HEM: CV/HEM: CAD and CHF Comments: EKG 08/25 SINUS TACHYCARDIA WITH SHORT AK INTERVAL, POSSIBLE ATRIAL FLUTTER RIGHT AXIS DEVIATION [QRS AXIS > 100] PATTERN CONSISTENT WITH PULMONARY DISEASE RIGHT BUNDLE BRANCH BLOCK [120+ ms QRS DURATION, UPRIGHT V1, 40+ ms S IN I/aVL/V4/V5/V6] : Comments: Hypokalemia K 3.1 Hepatic: Hepatic: None reported GI: GI: GERD Metabolic: Metabolic: DM Musc/skel: Musc/skel: RA and None reported Neuropsych: Neuropsych: None reported Comments: Adehesive arachnoiditis CT Neck 1. There is a large amount of air dissecting through the soft tissues and fascial planes of the posterior neck, predominantly posterior to the surgical site in the cervical spine spine and extending over the RIGHT shoulder. Necrotizing fasciitis should be considered as a possible etiology. 2. There is extensive, multifocal areas of fluid collections along the postsurgical site in the cervical spine associated with the subcutaneous air. Consistent with phlegmonous and postoperative abscesses. Postoperative seroma may appear similar but with the additional subcutaneous air infection is most likely. The largest collection measures 5.5 x 5.5 cm. There are additional smaller collections through the laminectomy defects. 3. New nodule RIGHT upper lobe since 08/31/2020. Early lung neoplasm needs to be considered. Follow-up recommended after acute illness has resolved. Anesthetic Plan: ASA status: 4 (65 year old male s/p cervical instrumentation now with necrosis vs dislodged suture with hx of COPD, CHF, smoking and acute hypoxia now intubated and sedated. ) Anesthesia: Anesthesia Evaluation and General Other: Emergent case per surgeon. I attempted twice to call spouse, voicemail left. I also attempted to call son listed as next of kin however I received a not in service message. Risk of > 500 ml blood loss (7ml/kg in children): No Meds/Allergies Current Medications: Current Medications Generic Name Dose Route Start Last Admin Trade Name Freq PRN Reason Stop Dose Admin Acetaminophen 650 mg 08/25/21 18:30 08/26/21 02:48 Acetaminophen 32 5 Mg Tablet PO 650 mg Q6H PRN Administration Mild/Mod Pain Or Temp >/= 101 Enoxaparin Sodium 40 mg 08/25/21 18:30 08/25/21 18:48 Enoxaparin 40 Mg /0.4 Ml Syringe SUBCUT 40 mg Q24H NAYE Administration Propofol 1,000 mg in 100 m ls @ 0 mls/hr 08/25/21 17:30 08/26/21 03:24 Diprivan IV 40 mcg/kg/min .Q0M NAYE 23.62 mls/hr Titration Protocol Per Protocol Fentanyl 1,000 mcg / Sodium 100 mls @ 0 mls/h r 08/25/21 17:30 08/26/21 03:23 Chloride IV 75 mcg/hr .Q0M NAYE 7.5 mls/hr Titration Protocol Per Protocol Meropenem 2,000 mg / Sodium 140 mls @ 280 mls /hr 08/25/21 18:00 08/26/21 03:05 Chloride IV Infused Q8H NAYE Infusion Vancomycin/PEG/NAD A/Lysine/Water 1,250 mg in 250 m ls @ 250 mls/hr 08/25/21 19:30 08/26/21 05:19 Vancocin IV Infused Q8H NAYE Infusion Insulin Human Lisp ro 0 unit 08/25/21 18:30 08/25/21 20:41 Insulin Lispro 1 00 Unit/1 Ml SUBCUT 6 unit WM&BEDTIME NAYE Administration Protocol PFSH Anesthesia PFSH: Medical History Adhesive arachnoiditis CHF (congestive heart failure) COPD (chronic obstructive pulmonary disease) Diabetes GERD (gastroesophageal reflux disease) High risk medication use High risk medication use History of trigger finger Immunization counseling Inactive TB Inflammatory arthritis 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 Capone History of lumbar fusion History of PTCA History of spinal surgery 01/05/2020 Dr. Karla Capone: C4-C5, C5-C6 ACDFF. Hx of hand surgery Family History Father CAD (coronary artery disease) Cancer Heart disease Hypertension Other Arthritis Asthma Social History Alcohol intake: never Household members: spouse and family Marital status: Current occupational status: retired and disabled Current occupation: retired/disabled History of recent travel: No Data Anesthesia CBC & Chem 7: 08/26/21 04:32 08/26/21 04:32 Other Labs: Laboratory Results - last 48 hr 08/25/21 08/25/21 08/25/21 13:01 13:12 13:12 WBC 13.8 H RBC 4.33 Hgb 14.8 Hct 42.5 MCV 98.2 H MCH 34.2 H MCHC 34.8 RDW 13.8 Plt Count 198 MPV 12.6 H Neut % (Auto) 83.7 Lymph % (Auto) 7.2 [place] % (Auto) 8.2 Eos % (Auto) 0.1 Baso % (Auto) 0.4 Neut # (Auto) 11.59 H Lymph # (Auto) 1.0 [place] # (Auto) 1.1 H Eos # (Auto) 0.0 Baso # (Auto) 0.1 Nucleated RBC % (auto) 0 Nucleated RBCs # 0.0 APTT Cancelled Specimen Type Sample Site ABG pH ABG pCO2 ABG pO2 ABG HCO3 ABG O2 Saturation ABG Base Excess Mahad Test A-a O2 Gradient Hematocrit Hgb O2 Saturation Carboxyhemoglobin Methemoglobin Total Hemoglobin Ionized Calcium O2 Delivery Device FiO2 Tidal Volume PEEP [place] Upholsterer ID Sodium Potassium Chloride Carbon Dioxide Anion Gap BUN Creatinine GFR Calculation Glucose POC Glucose 200 H Calculated Osmolality Lactate Calcium Magnesium Total Bilirubin AST ALT Alkaline Phosphatase C-Reactive Protein Total Protein Albumin Globulin Procalcitonin 08/25/21 08/25/21 08/25/21 13:12 13:12 15:09 WBC RBC Hgb Hct MCV MCH MCHC RDW Plt Count MPV Neut % (Auto) Lymph % (Auto) [place] % (Auto) Eos % (Auto) Baso % (Auto) Neut # (Auto) Lymph # (Auto) [place] # (Auto) Eos # (Auto) Baso # (Auto) Nucleated RBC % (auto) Nucleated RBCs # APTT 26.7 Specimen Type Sample Site ABG pH ABG pCO2 ABG pO2 ABG HCO3 ABG O2 Saturation ABG Base Excess Mahad Test A-a O2 Gradient Hematocrit Hgb O2 Saturation Carboxyhemoglobin Methemoglobin Total Hemoglobin Ionized Calcium O2 Delivery Device FiO2 Tidal Volume PEEP [place] Upholsterer ID Sodium Cancelled Potassium Cancelled Chloride Cancelled Carbon Dioxide Cancelled Anion Gap Cancelled BUN Cancelled Creatinine Cancelled GFR Calculation Cancelled Glucose Cancelled POC Glucose Calculated Osmolality Cancelled Lactate Cancelled Calcium Cancelled Magnesium Total Bilirubin AST ALT Alkaline Phosphatase C-Reactive Protein Cancelled Total Protein Albumin Globulin Procalcitonin 08/25/21 08/25/21 08/25/21 15:09 15:09 17:30 WBC RBC Hgb Hct MCV MCH MCHC RDW Plt Count MPV Neut % (Auto) Lymph % (Auto) [place] % (Auto) Eos % (Auto) Baso % (Auto) Neut # (Auto) Lymph # (Auto) [place] # (Auto) Eos # (Auto) Baso # (Auto) Nucleated RBC % (auto) Nucleated RBCs # APTT Specimen Type Arterial Sample Site Radial, right ABG pH 7.32 L ABG pCO2 37.0 ABG pO2 266.0 H ABG HCO3 18.8 L ABG O2 Saturation 97.9 ABG Base Excess -6.7 L Mahad Test Pos A-a O2 Gradient 33.4 H Hematocrit 41.1 L Hgb O2 Saturation 96.6 Carboxyhemoglobin 0.1 L Methemoglobin 1.3 Total Hemoglobin 13.4 L Ionized Calcium 1.1 O2 Delivery Device Vent FiO2 80.0 Tidal Volume 0.50 PEEP 10.0 [place] Upholsterer ID [place] Sodium 135 L 137.0 Potassium 3.7 3.5 Chloride 98 Carbon Dioxide 19 L Anion Gap 21.7 H BUN 15 Creatinine 0.8 GFR Calculation 97.0 Glucose 184 H 250.0 H POC Glucose Calculated Osmolality 286 Lactate 1.5 Calcium 9.3 Magnesium Total Bilirubin AST ALT Alkaline Phosphatase C-Reactive Protein 186.1 H Total Protein Albumin Globulin Procalcitonin 08/25/21 08/25/21 08/26/21 18:56 19:52 04:32 WBC RBC Hgb Hct MCV MCH MCHC RDW Plt Count MPV Neut % (Auto) Lymph % (Auto) [place] % (Auto) Eos % (Auto) Baso % (Auto) Neut # (Auto) Lymph # (Auto) [place] # (Auto) Eos # (Auto) Baso # (Auto) Nucleated RBC % (auto) Nucleated RBCs # APTT Specimen Type Sample Site ABG pH ABG pCO2 ABG pO2 ABG HCO3 ABG O2 Saturation ABG Base Excess Mahad Test A-a O2 Gradient Hematocrit Hgb O2 Saturation Carboxyhemoglobin Methemoglobin Total Hemoglobin Ionized Calcium O2 Delivery Device FiO2 Tidal Volume PEEP [place] Upholsterer ID Sodium Potassium Chloride Carbon Dioxide Anion Gap BUN Creatinine GFR Calculation Glucose POC Glucose 264 H 238 H Calculated Osmolality Lactate Calcium Magnesium 2.1 Total Bilirubin AST ALT Alkaline Phosphatase C-Reactive Protein Total Protein Albumin Globulin Procalcitonin 08/26/21 08/26/21 08/26/21 04:32 04:32 04:32 WBC 11.9 H RBC 3.59 L Hgb 12.0 Hct 37.0 L MCV 103.1 H MCH 33.4 MCHC 32.4 D RDW 14.2 Plt Count 194 MPV 11.7 H Neut % (Auto) 75.7 Lymph % (Auto) 11.6 [place] % (Auto) 11.1 Eos % (Auto) 0.4 Baso % (Auto) 0.7 Neut # (Auto) 9.01 H Lymph # (Auto) 1.4 [place] # (Auto) 1.3 H Eos # (Auto) 0.1 Baso # (Auto) 0.1 Nucleated RBC % (auto) 0 Nucleated RBCs # 0.0 APTT Specimen Type Sample Site ABG pH ABG pCO2 ABG pO2 ABG HCO3 ABG O2 Saturation ABG Base Excess Mahad Test A-a O2 Gradient Hematocrit Hgb O2 Saturation Carboxyhemoglobin Methemoglobin Total Hemoglobin Ionized Calcium O2 Delivery Device FiO2 Tidal Volume PEEP [place] Upholsterer ID Sodium 140 Potassium 3.1 L Chloride 106 Carbon Dioxide 17 L Anion Gap 20.1 H BUN 20 Creatinine 1.0 GFR Calculation 75.0 L Glucose 123 H POC Glucose Calculated Osmolality 294 Lactate Calcium 8.5 Magnesium Total Bilirubin 0.5 AST 13 ALT 6 Alkaline Phosphatase 72 C-Reactive Protein Total Protein 5.7 L Albumin 2.9 L Globulin 2.8 Procalcitonin 0.77 H 08/26/21 04:50 WBC RBC Hgb Hct MCV MCH MCHC RDW Plt Count MPV Neut % (Auto) Lymph % (Auto) [place] % (Auto) Eos % (Auto) Baso % (Auto) Neut # (Auto) Lymph # (Auto) [place] # (Auto) Eos # (Auto) Baso # (Auto) Nucleated RBC % (auto) Nucleated RBCs # APTT Specimen Type Arterial Sample Site Radial, right ABG pH 7.37 ABG pCO2 34.2 L ABG pO2 71.8 L ABG HCO3 19.9 L ABG O2 Saturation 92.3 ABG Base Excess -4.5 L Mahad Test Pos A-a O2 Gradient 22.5 H Hematocrit 44.6 Hgb O2 Saturation 91.4 L Carboxyhemoglobin 0.0 L Methemoglobin 1.0 Total Hemoglobin 14.5 Ionized Calcium 1.2 O2 Delivery Device Vent FiO2 40.0 Tidal Volume 0.50 PEEP 5.0 [place] [employer] Upholsterer ID Srini Sodium 138.0 Potassium 3.0 L Chloride Carbon Dioxide Anion Gap BUN Creatinine GFR Calculation Glucose 131.0 H POC Glucose Calculated Osmolality Lactate Calcium Magnesium Total Bilirubin AST ALT Alkaline Phosphatase C-Reactive Protein Total Protein Albumin Globulin Procalcitonin Micro: Microbiology 08/25/21 17:20 Gram Stain - Preliminary Sputum - Endotracheal Tube Aspirate 08/25/21 14:01 Blood Culture - Preliminary Blood SPECIMEN COLLECTED 08/25/21 13:38 Blood Culture - Preliminary Blood SPECIMEN COLLECTED Cardiac Studies: No Data to Display
[2021-08-26 07:28] LABS: Glucose Point of Care 127 mg/dL (70-110)
--- NOTE | 2021-08-26 07:48 | PM.ACPR ---
Acute Procedures Intubation: Time out performed: Yes Sedative: etomidate Mg given: 20 Paralytic: succinylcholine Mg given: 100 Laryngoscope: fiber optic video scope ET tube size: 8 Tube secured depth (cm): 24 Tube secured location: lips Tube placement confirmation: equal breath sounds bilaterally and color change noted Patient tolerated procedure: well and no complications Intubation complications: none
[2021-08-26] MEDS: lidocaine 1% 5 ML in potassium chloride premix 100 ML 25 ML IV (07:55)
[2021-08-26] MEDS: propofol 1,000 MG/100 ML INJ 23.62 MG IV ×3 (07:55→21:26)
--- NOTE | 2021-08-26 08:02 | P.CONIM_ITS ---
Providers/Reason For Consult Consulting Physician/Specialty*: hospitalist Reason for Consult*: wound dehisence Attending Physician: Geo Lerner MD Primary Care Provider: Reahn Clarke MD History of Present Illness History of Present Illness Jase Warren is a 65 year old male had posterior cervical surgery on 08/22/2021. Surgery is uneventful. Patient left the hospital AGAINST MEDICAL ADVICE on Sunday afternoon. Came to clinic on Sunday wound was clean dry and intact. Patient came to the ER yesterday on 08/25/2021 with some drainage from the wound and inability to care himself. Review of Systems General: Reports: ROS unobtainable due to medical condition Const: Denies: fever(s) or chills Eyes: Denies: change in vision ENMT: Reports: other (neck pain, posterior surgical site drainage); Denies: mouth pain Card: Denies: chest pain or palpitations Resp: Denies: dyspnea or non-productive cough GI: Denies: abdominal pain, nausea, vomiting or diarrhea : Denies: dysuria Musc: Denies: extremity pain Skin/Breast: Denies: rash or new lesions Neuro: Reports: headache(s); Denies: weakness in extremities Psych: Reports: other (Normal mood) Martell/Lymph: Denies: easy bruising Meds/Allergies Home Medications and Allergies Home Medications Medication Instructions Recorded Confirmed Last Taken Type albuterol sulfate 90 mcg/actuation 2 puff INHALATION Q6H PRN 09/24/19 08/23/21 2 Days Ago History aerosol inhaler ~01/03/20 aspirin 81 mg tablet,delayed 81 mg PO DAILY 09/24/19 08/23/21 08/19/21 History release docusate sodium 100 mg capsule 100 mg PO BID 09/24/19 08/23/21 08/21/21 History empagliflozin 25 mg tablet 25 mg PO DAILY 09/24/19 08/23/21 08/21/21 History metformin 1,000 mg tablet 1,000 mg PO BID 09/24/19 08/23/21 08/21/21 History methimazole 5 mg tablet 5 mg PO DAILY 09/24/19 08/23/21 08/21/21 History nitroglycerin 0.4 mg sublingual 0.4 mg SUBLINGUAL Q5M PRN 09/24/19 08/23/21 Unknown History tablet pantoprazole 20 mg tablet,delayed 20 mg PO DAILY 09/24/19 08/23/21 08/21/21 History release rosuvastatin 40 mg tablet 40 mg PO DAILY 09/24/19 08/23/21 08/21/21 History tamsulosin 0.4 mg capsule 0.4 mg PO DAILY 09/24/19 08/23/21 08/21/21 History liraglutide 0.6 mg/0.1 mL (18 mg/3 1.8 mg SUBCUT Q24H 10/07/19 08/23/21 08/21/21 History mL) subcutaneous pen injector tiotropium 2.5 mcg-olodaterol 2.5 2 puff INHALATION DAILY 10/07/19 08/23/21 06/21/21 History mcg/actuation mist for inhalation tramadol 50 mg tablet 50 mg PO TID PRN 10/07/19 08/23/21 08/21/21 History ipratropium 20 mcg-albuterol 100 1 puff INHALATION Q4H 12/03/19 08/23/21 07/20/21 History mcg/actuation mist for inhalation ergocalciferol (vitamin D2) 50 mcg 50,000 mcg PO Q7D cap 10/28/20 08/23/21 08/19/21 History (2,000 unit) capsule gabapentin 300 mg capsule 200 mg PO TID cap 10/28/20 08/23/21 08/21/21 History gabapentin 300 mg capsule 400 mg PO TID cap 10/28/20 08/23/21 08/21/21 History insulin NPH isoph U-100 human 100 80 unit SUBCUT QAM ml 10/28/20 08/23/21 08/21/21 History unit/mL (3 mL) subcutaneous pen insulin lispro 100 unit/mL 5 unit SUBCUT TID 10/28/20 08/23/21 08/21/21 History subcutaneous pen adalimumab 40 mg/0.8 mL 40 mg SUBCUT Q14D #2 ea 04/21/21 08/23/21 08/15/21 Rx subcutaneous pen kit cyanocobalamin (vitamin B-12) 1,000 mcg SUBCUT Q30D 08/10/21 08/23/21 08/13/21 History Allergies Allergy/AdvReac Type Severity Reaction Status Date / Time No Known Allergies Allergy Verified 08/23/21 11:05 Current Medications Current Medications Generic Name Dose Route Start Last Admin Trade Name Freq PRN Reason Stop Dose Admin Acetaminophen 650 mg 08/25/21 18:30 08/26/21 02:48 Acetaminophen 325 Mg Tablet PO 650 mg Q6H PRN Administration Mild/Mod Pain Or Temp >/= 101 Enoxaparin Sodium 40 mg 08/25/21 18:30 08/25/21 18:48 Enoxaparin 40 Mg/0.4 Ml Syringe SUBCUT 40 mg Q24H NAYE Administration Propofol 1,000 mg in 100 mls @ 0 mls/hr 08/25/21 17:30 08/26/21 07:55 Diprivan IV 40 mcg/kg/min .Q0M NAYE 23.62 mls/hr Administration Protocol Per Protocol Fentanyl 1,000 mcg/ Sodium 100 mls @ 0 mls/hr 08/25/21 17:30 08/26/21 07:55 Chloride IV 75 mcg/hr .Q0M NAYE 7.5 mls/hr Administration Protocol Per Protocol Meropenem 2,000 mg/ Sodium 140 mls @ 280 mls/hr 08/25/21 18:00 08/26/21 03:05 Chloride IV Infused Q8H NAYE Infusion Vancomycin/PEG/NADA/Lysine/Water 1,250 mg in 250 mls @ 250 mls/hr 08/25/21 19:30 08/26/21 05:19 Vancocin IV Infused Q8H NAYE Infusion Lidocaine HCl 5 ml/ Potassium 105 mls @ 25 mls/hr 08/26/21 07:46 08/26/21 07:55 Chloride IV 08/26/21 11:57 25 mls/hr ONCE ONE Administration Insulin Human Lispro 0 unit 08/25/21 18:30 08/26/21 07:28 Insulin Lispro 100 Unit/1 Ml SUBCUT Not Given WM&BEDTIME NAYE Protocol PFSH Acute PFSH: Medical History Adhesive arachnoiditis CHF (congestive heart failure) COPD (chronic obstructive pulmonary disease) Diabetes GERD (gastroesophageal reflux disease) High risk medication use High risk medication use History of trigger finger Immunization counseling Inactive TB Inflammatory arthritis 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 Capone History of lumbar fusion History of PTCA History of spinal surgery 01/05/2020 Dr. Karla Capone: C4-C5, C5-C6 ACDFF. Hx of hand surgery Family History Father CAD (coronary artery disease) Cancer Heart disease Hypertension Other Arthritis Asthma Social History Alcohol intake: never Household members: spouse and family Marital status: Current occupational status: retired and disabled Current occupation: retired/disabled History of recent travel: No Dietary Habits: Current diet type/program: regular Exercise: What type of physical activity do you participate in?: walking Physical activity functional status: assisted ambulation Vitals/I&O/Wt Last Vital Signs Temp 99.4 F 08/26/21 07:30 Pulse 86 08/26/21 07:30 Resp 19 H 08/26/21 07:45 BP 122/57 08/26/21 07:30 Pulse Ox 99 08/26/21 07:45 08/25/21 08/26/21 08/26/21 22:59 06:59 14:59 Intake Total 2305.704 / 2305.704 859.796 / 3165.500 34 / 34 Output Total 250 / 250 400 / 650 Balance 2055.704 / 2055.704 459.796 / 2515.500 34 / 34 Weight last 48 hrs Weight 217 lb Physical Exam Narrative: EXAM NARRATIVE: Patient intubated unable to a physical exam Urinary Catheter Management^: 2-way Urethral: Cath Placed During This Visit: yes Reason for Continuing Indwelling Catheter: Acute Urinary Retention or Obstruction Urinary Catheter Date of Insertion: 08/25/21 Urinary Catheter Time of Insertion: 19:47 Data Micro: Micro: Microbiology 08/25/21 17:20 Gram Stain - Preli minary Sputum - Endotrac heal Tube Aspirate 08/25/21 14:01 Blood Culture - Pr eliminary Blood SPECIMEN COLLEC JOHN 08/25/21 13:38 Blood Culture - Pr eliminary Blood SPECIMEN FUNMILAYO LOPEZ A&P Assessment and plan (1) Status post cervical spinal fusion: Plan will be to take him back and reclose it. 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
--- NOTE | 2021-08-26 08:16 | P.PN_ITS ---
Subjective Subjective: Interval history: unable to get a hold of his for the consent. I did have a converstation with him yesterday about taking him to surgery today. at this point we will do the case emergently since he has since been intubated Vitals/I&O/Wt Last Vital Signs Temp 99.4 F 08/26/21 07:30 Pulse 86 08/26/21 07:30 Resp 19 H 08/26/21 07:45 BP 122/57 08/26/21 07:30 Pulse Ox 99 08/26/21 07:45 08/25/21 08/26/21 08/26/21 22:59 06:59 14:59 Intake Total 2305.704 / 2305.704 859.796 / 3165.500 34 / 34 Output Total 250 / 250 400 / 650 Balance 2055.704 / 2055.704 459.796 / 2515.500 34 / 34 Weight last 48 hrs Weight 217 lb Physical Exam Urinary Catheter Management^: 2-way Urethral: Cath Placed During This Visit: yes Reason for Continuing Indwelling Catheter: Acute Urinary Retention or Obstruction Urinary Catheter Date of Insertion: 08/25/21 Urinary Catheter Time of Insertion: 19:47 Data : 08/26/21 04:32 08/26/21 04:32 Micro: Microbiology 08/25/21 17:20 Gram Stain - Preliminary Sputum - Endotracheal Tube Aspirate 08/25/21 14:01 Blood Culture - Preliminary Blood SPECIMEN COLLECTED 08/25/21 13:38 Blood Culture - Preliminary Blood SPECIMEN COLLECTED Attestations Medical Necessity Statement*: has become intubated and surgery is necessary Coding Level of Care Code Acute 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
[2021-08-26] MEDS: vancomycin 1,000 MG SDV 2000 MG XX (09:30)
--- NOTE | 2021-08-26 09:38 | PC.PHAR ---
PTS [facility] [phone] VERIFIED PTS MEDICATIONS
--- NOTE | 2021-08-26 09:40 | P.ANESASSM_ITS ---
Pre-Anesthetic Assessment Pre-Anesthetic Assessment: Height/Weight: Height 1.85 m Weight 98.43 kg Temp Pulse Resp BP Pulse Ox 99.4 F 88 19 H 124/54 94 08/26/21 07:30 08/26/21 08:30 08/26/21 07:45 08/26/21 08:30 08/26/21 08:30 Preop Diagnosis: Cervical spondylosis with myelopathy Proposed Procedure: Operation Date: 08/26/21 08:00 Proposed Procedures p Incision and Drainage neck s/p fusion(Not Applicable) - Musa Flores, DO Was Beta Sonam taken within 24 hours: N/A Was Clonidine taken within 24 hours: N/A Social: Social History: Tobacco and No alcohol Exam: Pre-Anes Outpt Exam: alert, oriented x 3 and regular rate & rhythm Additional Exam Findings (including area of procedure): Intubated in ICU Airway: Additional comments: ETT Pulmonary: Pulmonary: COPD CV/HEM: CV/HEM: CAD, CHF and HTN Metabolic: Metabolic: DM and Hyperlipidemia Musc/skel: Musc/skel: RA Anesthetic Plan: ASA status: 3 Anesthesia: General Risk of > 500 ml blood loss (7ml/kg in children): No Meds/Allergies Current Medications: Current Medications Generic Name Dose Route Start Last Admin Trade Name Freq PRN Reason Stop Dose Admin Acetaminophen 650 mg 08/25/21 18:30 08/26/21 02:48 Acetaminophen 32 5 Mg Tablet PO 650 mg Q6H PRN Administration Mild/Mod Pain Or Temp >/= 101 Enoxaparin Sodium 40 mg 08/25/21 18:30 08/25/21 18:48 Enoxaparin 40 Mg /0.4 Ml Syringe SUBCUT 40 mg Q24H NAYE Administration Propofol 1,000 mg in 100 m ls @ 0 mls/hr 08/25/21 17:30 08/26/21 08:35 Diprivan IV 0 mcg/kg/min .Q0M NAYE 0 mls/hr Titration Protocol Per Protocol Fentanyl 1,000 mcg / Sodium 100 mls @ 0 mls/h r 08/25/21 17:30 08/26/21 08:35 Chloride IV 0 mcg/hr .Q0M NAYE 0 mls/hr Titration Protocol Per Protocol Meropenem 2,000 mg / Sodium 140 mls @ 280 mls /hr 08/25/21 18:00 08/26/21 03:05 Chloride IV Infused Q8H NAYE Infusion Vancomycin/PEG/NAD A/Lysine/Water 1,250 mg in 250 m ls @ 250 mls/hr 08/25/21 19:30 08/26/21 05:19 Vancocin IV Infused Q8H NAYE Infusion Lidocaine HCl 5 ml / Potassium 105 mls @ 25 mls/ hr 08/26/21 07:46 08/26/21 08:35 Chloride IV 08/26/21 11:57 0 mls/hr ONCE ONE Infusion Insulin Human Lisp ro 0 unit 08/25/21 18:30 08/26/21 07:28 Insulin Lispro 1 00 Unit/1 Ml SUBCUT Not Given WM&BEDTIME NAYE Protocol PFSH Anesthesia PFSH: Medical History Adhesive arachnoiditis CHF (congestive heart failure) COPD (chronic obstructive pulmonary disease) Diabetes GERD (gastroesophageal reflux disease) High risk medication use High risk medication use History of trigger finger Immunization counseling Inactive TB Inflammatory arthritis 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 Capone History of lumbar fusion History of PTCA History of spinal surgery 01/05/2020 Dr. Karla Capone: C4-C5, C5-C6 ACDFF. Hx of hand surgery Family History Father CAD (coronary artery disease) Cancer Heart disease Hypertension Other Arthritis Asthma Social History Alcohol intake: never Household members: spouse and family Marital status: Current occupational status: retired and disabled Current occupation: retired/disabled History of recent travel: No Data Anesthesia CBC & Chem 7: 08/26/21 04:32 08/26/21 04:32 Other Labs: Laboratory Results - last 48 hr 08/25/21 08/25/21 08/25/21 13:01 13:12 13:12 WBC 13.8 H RBC 4.33 Hgb 14.8 Hct 42.5 MCV 98.2 H MCH 34.2 H MCHC 34.8 RDW 13.8 Plt Count 198 MPV 12.6 H Neut % (Auto) 83.7 Lymph % (Auto) 7.2 [place] % (Auto) 8.2 Eos % (Auto) 0.1 Baso % (Auto) 0.4 Neut # (Auto) 11.59 H Lymph # (Auto) 1.0 [place] # (Auto) 1.1 H Eos # (Auto) 0.0 Baso # (Auto) 0.1 Nucleated RBC % (auto) 0 Nucleated RBCs # 0.0 APTT Cancelled Specimen Type Sample Site ABG pH ABG pCO2 ABG pO2 ABG HCO3 ABG O2 Saturation ABG Base Excess Mahad Test A-a O2 Gradient Hematocrit Hgb O2 Saturation Carboxyhemoglobin Methemoglobin Total Hemoglobin Ionized Calcium O2 Delivery Device FiO2 Tidal Volume PEEP Public Health Program Manager ID Sodium Potassium Chloride Carbon Dioxide Anion Gap BUN Creatinine GFR Calculation Glucose POC Glucose 200 H Calculated Osmolality Lactate Calcium Magnesium Total Bilirubin AST ALT Alkaline Phosphatase C-Reactive Protein Total Protein Albumin Globulin Procalcitonin 08/25/21 08/25/21 08/25/21 13:12 13:12 15:09 WBC RBC Hgb Hct MCV MCH MCHC RDW Plt Count MPV Neut % (Auto) Lymph % (Auto) [place] % (Auto) Eos % (Auto) Baso % (Auto) Neut # (Auto) Lymph # (Auto) [place] # (Auto) Eos # (Auto) Baso # (Auto) Nucleated RBC % (auto) Nucleated RBCs # APTT 26.7 Specimen Type Sample Site ABG pH ABG pCO2 ABG pO2 ABG HCO3 ABG O2 Saturation ABG Base Excess Mahad Test A-a O2 Gradient Hematocrit Hgb O2 Saturation Carboxyhemoglobin Methemoglobin Total Hemoglobin Ionized Calcium O2 Delivery Device FiO2 Tidal Volume PEEP Public Health Program Manager ID Sodium Cancelled Potassium Cancelled Chloride Cancelled Carbon Dioxide Cancelled Anion Gap Cancelled BUN Cancelled Creatinine Cancelled GFR Calculation Cancelled Glucose Cancelled POC Glucose Calculated Osmolality Cancelled Lactate Cancelled Calcium Cancelled Magnesium Total Bilirubin AST ALT Alkaline Phosphatase C-Reactive Protein Cancelled Total Protein Albumin Globulin Procalcitonin 08/25/21 08/25/21 08/25/21 15:09 15:09 17:30 WBC RBC Hgb Hct MCV MCH MCHC RDW Plt Count MPV Neut % (Auto) Lymph % (Auto) [place] % (Auto) Eos % (Auto) Baso % (Auto) Neut # (Auto) Lymph # (Auto) [place] # (Auto) Eos # (Auto) Baso # (Auto) Nucleated RBC % (auto) Nucleated RBCs # APTT Specimen Type Arterial Sample Site Radial, right ABG pH 7.32 L ABG pCO2 37.0 ABG pO2 266.0 H ABG HCO3 18.8 L ABG O2 Saturation 97.9 ABG Base Excess -6.7 L Mahad Test Pos A-a O2 Gradient 33.4 H Hematocrit 41.1 L Hgb O2 Saturation 96.6 Carboxyhemoglobin 0.1 L Methemoglobin 1.3 Total Hemoglobin 13.4 L Ionized Calcium 1.1 O2 Delivery Device Vent FiO2 80.0 Tidal Volume 0.50 PEEP 10.0 Public Health Program Manager ID [place]ro Sodium 135 L 137.0 Potassium 3.7 3.5 Chloride 98 Carbon Dioxide 19 L Anion Gap 21.7 H BUN 15 Creatinine 0.8 GFR Calculation 97.0 Glucose 184 H 250.0 H POC Glucose Calculated Osmolality 286 Lactate 1.5 Calcium 9.3 Magnesium Total Bilirubin AST ALT Alkaline Phosphatase C-Reactive Protein 186.1 H Total Protein Albumin Globulin Procalcitonin 08/25/21 08/25/21 08/26/21 18:56 19:52 04:32 WBC RBC Hgb Hct MCV MCH MCHC RDW Plt Count MPV Neut % (Auto) Lymph % (Auto) [place] % (Auto) Eos % (Auto) Baso % (Auto) Neut # (Auto) Lymph # (Auto) [place] # (Auto) Eos # (Auto) Baso # (Auto) Nucleated RBC % (auto) Nucleated RBCs # APTT Specimen Type Sample Site ABG pH ABG pCO2 ABG pO2 ABG HCO3 ABG O2 Saturation ABG Base Excess Mahad Test A-a O2 Gradient Hematocrit Hgb O2 Saturation Carboxyhemoglobin Methemoglobin Total Hemoglobin Ionized Calcium O2 Delivery Device FiO2 Tidal Volume PEEP Public Health Program Manager ID Sodium Potassium Chloride Carbon Dioxide Anion Gap BUN Creatinine GFR Calculation Glucose POC Glucose 264 H 238 H Calculated Osmolality Lactate Calcium Magnesium 2.1 Total Bilirubin AST ALT Alkaline Phosphatase C-Reactive Protein Total Protein Albumin Globulin Procalcitonin 08/26/21 08/26/21 08/26/21 04:32 04:32 04:32 WBC 11.9 H RBC 3.59 L Hgb 12.0 Hct 37.0 L MCV 103.1 H MCH 33.4 MCHC 32.4 D RDW 14.2 Plt Count 194 MPV 11.7 H Neut % (Auto) 75.7 Lymph % (Auto) 11.6 [place] % (Auto) 11.1 Eos % (Auto) 0.4 Baso % (Auto) 0.7 Neut # (Auto) 9.01 H Lymph # (Auto) 1.4 [place] # (Auto) 1.3 H Eos # (Auto) 0.1 Baso # (Auto) 0.1 Nucleated RBC % (auto) 0 Nucleated RBCs # 0.0 APTT Specimen Type Sample Site ABG pH ABG pCO2 ABG pO2 ABG HCO3 ABG O2 Saturation ABG Base Excess Mahad Test A-a O2 Gradient Hematocrit Hgb O2 Saturation Carboxyhemoglobin Methemoglobin Total Hemoglobin Ionized Calcium O2 Delivery Device FiO2 Tidal Volume PEEP Public Health Program Manager ID Sodium 140 Potassium 3.1 L Chloride 106 Carbon Dioxide 17 L Anion Gap 20.1 H BUN 20 Creatinine 1.0 GFR Calculation 75.0 L Glucose 123 H POC Glucose Calculated Osmolality 294 Lactate Calcium 8.5 Magnesium Total Bilirubin 0.5 AST 13 ALT 6 Alkaline Phosphatase 72 C-Reactive Protein Total Protein 5.7 L Albumin 2.9 L Globulin 2.8 Procalcitonin 0.77 H 08/26/21 08/26/21 04:50 07:20 WBC RBC Hgb Hct MCV MCH MCHC RDW Plt Count MPV Neut % (Auto) Lymph % (Auto) [place] % (Auto) Eos % (Auto) Baso % (Auto) Neut # (Auto) Lymph # (Auto) [place] # (Auto) Eos # (Auto) Baso # (Auto) Nucleated RBC % (auto) Nucleated RBCs # APTT Specimen Type Arterial Sample Site Radial, right ABG pH 7.37 ABG pCO2 34.2 L ABG pO2 71.8 L ABG HCO3 19.9 L ABG O2 Saturation 92.3 ABG Base Excess -4.5 L Mahad Test Pos A-a O2 Gradient 22.5 H Hematocrit 44.6 Hgb O2 Saturation 91.4 L Carboxyhemoglobin 0.0 L Methemoglobin 1.0 Total Hemoglobin 14.5 Ionized Calcium 1.2 O2 Delivery Device Vent FiO2 40.0 Tidal Volume 0.50 PEEP 5.0 Public Health Program Manager ID Srini Sodium 138.0 Potassium 3.0 L Chloride Carbon Dioxide Anion Gap BUN Creatinine GFR Calculation Glucose 131.0 H POC Glucose 127 H Calculated Osmolality Lactate Calcium Magnesium Total Bilirubin AST ALT Alkaline Phosphatase C-Reactive Protein Total Protein Albumin Globulin Procalcitonin Micro: Microbiology 08/25/21 17:20 Gram Stain - Preliminary Sputum - Endotracheal Tube Aspirate 08/25/21 14:01 Blood Culture - Preliminary Blood SPECIMEN COLLECTED 08/25/21 13:38 Blood Culture - Preliminary Blood SPECIMEN COLLECTED Cardiac Studies: No Data to Display
[2021-08-26] MEDS: vancomycin 1,000 MG SDV 1000 MG XX (10:01)
--- NOTE | 2021-08-26 10:44 | PM.PN ---
Subjective Subjective: Interval history: Seen and examined this morning, on mechanical ventilation, AM ABG: pH 7.37, PCO2 34, PO2 71 5 FIO2 40% PEEP of 5. His other vitals and labs have been reviewed. Medications: Medication Review Details: Generic Name Dose Route Start Last Admin Trade Name Eugene PRN Reason Stop Dose Admin Acetaminophen 650 mg 08/25/21 18:30 08/26/21 02:48 Acetaminophen 32 5 Mg Tablet PO 650 mg Q6H PRN Administration Mild/Mod Pain Or Temp >/= 101 Enoxaparin Sodium 40 mg 08/25/21 18:30 08/25/21 18:48 Enoxaparin 40 Mg /0.4 Ml Syringe SUBCUT 40 mg Q24H NAYE Administration Propofol 1,000 mg in 100 m ls @ 0 mls/hr 08/25/21 17:30 08/26/21 08:35 Diprivan IV 0 mcg/kg/min .Q0M NAYE 0 mls/hr Titration Protocol Per Protocol Fentanyl 1,000 mcg / Sodium 100 mls @ 0 mls/h r 08/25/21 17:30 08/26/21 08:35 Chloride IV 0 mcg/hr .Q0M NAYE 0 mls/hr Titration Protocol Per Protocol Meropenem 2,000 mg / Sodium 140 mls @ 280 mls /hr 08/25/21 18:00 08/26/21 03:05 Chloride IV Infused Q8H NAYE Infusion Vancomycin/PEG/NAD A/Lysine/Water 1,250 mg in 250 m ls @ 250 mls/hr 08/25/21 19:30 08/26/21 05:19 Vancocin IV Infused Q8H NAYE Infusion Lidocaine HCl 5 ml / Potassium 105 mls @ 25 mls/ hr 08/26/21 07:46 08/26/21 08:35 Chloride IV 08/26/21 11:57 0 mls/hr ONCE ONE Infusion Insulin Human Lisp ro 0 unit 08/25/21 18:30 08/26/21 07:28 Insulin Lispro 1 00 Unit/1 Ml SUBCUT Not Given WM&BEDTIME NYAE Protocol Vitals/I&O/Wt Last Vital Signs Temp 99.4 F 08/26/21 07:30 Pulse 88 08/26/21 08:30 Resp 19 H 08/26/21 07:45 BP 124/54 08/26/21 08:30 Pulse Ox 94 08/26/21 08:30 08/25/21 08/26/21 08/26/21 22:59 06:59 14:59 Intake Total 2305.704 / 2305.704 859.796 / 3165.500 71.414 / 71.414 Output Total 250 / 250 400 / 650 Balance 2055.704 / 2055.704 459.796 / 2515.500 71.414 / 71.414 Weight last 48 hrs Weight 98.43 kg Physical Exam Narrative: EXAM NARRATIVE: Intubated and sedated, off HENMT: COMMON NORMALS: normocephalic and atraumatic HEAD & SCALP: normocephalic and atraumatic Resp: COMMON NORMALS: clear to auscultation bilaterally AUSCULTATION: clear to auscultation bilaterally Cardio: COMMON NORMALS: regular rate, regular rhythm, S1 normal heart sound present, S2 normal heart sound present, No gallops present (Cardio), No murmurs present (Cardio), No rub (Cardio) and Peripheral pulses 2+ throughout RATE: regular rate RHYTHM: regular rhythm HEART SOUNDS: S1 normal heart sound present and S2 normal heart sound present PERIPHERAL PULSES: Peripheral pulses 2+ throughout GI: COMMON NORMALS: Normal to inspection, nondistended, normoactive bowel sounds present, Soft to palpation, non-tender, No hepatosplenomegaly present and no masses AUSCULTATION: Yes normoactive bowel sounds PALPATION: Yes Soft to palpation and Yes No hepatosplenomegaly present RECTAL EXAM: Yes deferred Extremity: COMMON NORMALS: no clubbing, cyanosis or edema and no pedal edema Urinary Catheter Management^: 2-way Urethral: Cath Placed During This Visit: yes Reason for Continuing Indwelling Catheter: Acute Urinary Retention or Obstruction Urinary Catheter Date of Insertion: 08/25/21 Urinary Catheter Time of Insertion: 19:47 Data : 08/26/21 04:32 08/26/21 04:32 Micro: Microbiology 08/25/21 17:20 Gram Stain - Preliminary Sputum - Endotracheal Tube Aspirate 08/25/21 14:01 Blood Culture - Preliminary Blood SPECIMEN COLLECTED 08/25/21 13:38 Blood Culture - Preliminary Blood SPECIMEN COLLECTED A&P Assessment and plan (1) Necrotizing fasciitis: Status: Acute (2) CHF (congestive heart failure): Status: Acute (3) Acute encephalopathy: Status: Acute (4) COPD (chronic obstructive pulmonary disease): Status: Acute (5) Diabetes: Status: Acute (6) Status post cervical spinal fusion: Status: Acute (7) Hypertension: Status: Acute Additional A&P Information 65 year old male with PMH of CAD S/P Stent, HTN, DM, COPD , CHF , recent l C2-T2 Posterior spine fusion on 08/22 came in today with c/o headache as well as neck pain and stiffness after he left AMA on 08/22. # Wound dehiscence with possible underlying infection: Follow blood culture ESR : CRP: 186 Procalcitonin:0.77 Currently the plan is to continue with broad-spectrum IV antibiotics Orthopedic on board. #CT suggestive of possible necrotizing fasciitis: Cannot conclusively rule out post op complication. Plan as above #Heart failure: Follow 2D echo Currently compensated Monitor intake output charting #COPD: DuoNebs Supplemental oxygen as needed #History of coronary artery disease status post stent: #Diabetes: Sliding scale insulin Monitor fingerstick glucose #Acute encephalopathy: Acute encephalopathy : Cannot completely rule out SQL SERVER DBA DEVELOPER involvement: Currently patient is intubated sedated on mechanical ventilation. Antibiotics as above CODE STATUS: Full code DVT prophylaxis: Lovenox 40 MG subcu daily Attestations Medical Necessity Statement*: Patient needs to be in hospital for the management of Possible N/F, wound dehiscence. Time Spent in Patient Care: Greater than 35 minutes (>than 50% of time spent in counselling and/or direct pt care on unit). Critical Care Time: Critical Care Time (min): 40 Other Attestations: The high probability of a clinically significant, sudden or life threatening deterioration of the patient's [] system(s) required my full and direct attention, intervention and personal management. The critical care time is as shown. 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
[2021-08-26 11:08] LABS: Glucose Point of Care 127 mg/dL (70-110)
--- NOTE | 2021-08-26 11:23 | PM.OP ---
Operative Report Date of procedure: August 26, 2021 Pre-op Diagnosis: Cervical spondylosis with myelopathy; hematoma Post-op diagnosis: same Procedure Done: evacuation of post operative hematoma Surgeon: Musa Flores Anesthesia: General Estimated blood loss (mL): 50 Condition: stable Disposition: PACU Procedure: Patient is brought to the operative suite after undergoing anesthesia was placed in the prone position all areas impingement well-padded. Patient was then prepped and draped in normal sterile fashion. The skin incision posteriorly was opened up large amount of fluid came out. Is mixed with blood and likely cerebral spinal fluid. The wound was dissected down to the previous surgery screws and dura were identified. Wound was then irrigated copiously with 3 L of saline. There did not appear to be any leak of the dura from any laceration dorsally. A small amount seem to well up from the anterior possibly DuraGen. A Valsalva maneuver was performed. There was no leakage of any of the CSF. DuraSeal was then placed. And then Palencia powder was placed a deep drain was placed and the wound was closed in layered fashion with Stratus fix suture and then the skin was closed with nylon suture.
--- NOTE | 2021-08-26 11:51 | ECG_ITS ---
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 Measurements Intervals [place] Rate: 130 P: 70 NM: 141 QRS: -63 QRSD: 115 T: 70 QT: 314 QTc: 462 Interpretive Statements SINUS TACHYCARDIA RIGHT BUNDLE BRANCH BLOCK [120+ ms QRS DURATION, UPRIGHT V1, 40+ ms S IN I/aVL/V4/V5/V6] LEFT ANTERIOR FASCICULAR BLOCK [QRS AXIS <= -45, QR IN I, RS IN II] INFERIOR MYOCARDIAL INFARCTION , PROBABLY OLD [40+ ms Q WAVE AND/OR ST/T ABNORMALITY IN II/aVF] Compared to ECG 08/25/2021 17:10:51 Left anterior fascicular block now present Myocardial infarct finding now present Right-axis deviation no longer present Electronically Signed On 08-26-2021 17:53:38 DECISION UNIT RN by Arlyn Staton M.D. [id number]
--- NOTE | 2021-08-26 11:52 | ANE.PACU2 ---
Inpatient post-anesthesia follow up: Airway intact: Yes Vital signs: Temperature 99.4 F Pulse Rate 88 Respiratory Rate 14 Blood Pressure 124/54 Pulse Oximetry 92 Oxygen Delivery Me thod Mechanical Ventila tion Oxygen Flow Rate 3 Fraction of Inspir ed Oxygen 40 Hydration adequate: Yes Nausea and vomiting: No Pain level: 2 Mental status: Baseline
[2021-08-26 17:06] LABS: Glucose Point of Care 152 mg/dL (70-110)
--- NOTE | 2021-08-26 17:09 | PM.PN ---
Subjective Subjective: Interval history: Seen and examined this morning, Continue to be on mechanical ventilation, No acute events overnight. His other vitals and labs have been reviewed. Medications: Medication Review Details: Generic Name Dose Route Start Last Admin Trade Name Eugene PRN Reason Stop Dose Admin Acetaminophen 650 mg 08/25/21 18:30 08/26/21 02:48 Acetaminophen 32 5 Mg Tablet PO 650 mg Q6H PRN Administration Mild/Mod Pain Or Temp >/= 101 Enoxaparin Sodium 40 mg 08/25/21 18:30 08/25/21 18:48 Enoxaparin 40 Mg /0.4 Ml Syringe SUBCUT 40 mg Q24H NAYE Administration Propofol 1,000 mg in 100 m ls @ 0 mls/hr 08/25/21 17:30 08/26/21 08:35 Diprivan IV 0 mcg/kg/min .Q0M NAYE 0 mls/hr Titration Protocol Per Protocol Fentanyl 1,000 mcg / Sodium 100 mls @ 0 mls/h r 08/25/21 17:30 08/26/21 08:35 Chloride IV 0 mcg/hr .Q0M NAYE 0 mls/hr Titration Protocol Per Protocol Meropenem 2,000 mg / Sodium 140 mls @ 280 mls /hr 08/25/21 18:00 08/26/21 03:05 Chloride IV Infused Q8H NAYE Infusion Vancomycin/PEG/NAD A/Lysine/Water 1,250 mg in 250 m ls @ 250 mls/hr 08/25/21 19:30 08/26/21 05:19 Vancocin IV Infused Q8H NAYE Infusion Lidocaine HCl 5 ml / Potassium 105 mls @ 25 mls/ hr 08/26/21 07:46 08/26/21 08:35 Chloride IV 08/26/21 11:57 0 mls/hr ONCE ONE Infusion Insulin Human Lisp ro 0 unit 08/25/21 18:30 08/26/21 07:28 Insulin Lispro 1 00 Unit/1 Ml SUBCUT Not Given WM&BEDTIME NAYE Protocol Vitals/I&O/Wt Last Vital Signs Temp 98.1 F 08/26/21 12:00 Pulse 100 08/26/21 16:00 Resp 22 H 08/26/21 15:16 BP 99/56 08/26/21 16:00 Pulse Ox 97 08/26/21 16:00 08/26/21 08/26/21 08/26/21 06:59 14:59 22:59 Intake Total 859.796 / 3165.500 661.028 / 661.028 Output Total 400 / 650 Balance 459.796 / 2515.500 661.028 / 661.028 Weight last 48 hrs Weight 98.43 kg Physical Exam Narrative: EXAM NARRATIVE: Intubated and sedated, on mechanical ventilation HENMT: COMMON NORMALS: normocephalic and atraumatic HEAD & SCALP: normocephalic and atraumatic Resp: COMMON NORMALS: clear to auscultation bilaterally AUSCULTATION: clear to auscultation bilaterally Cardio: COMMON NORMALS: regular rate, regular rhythm, S1 normal heart sound present, S2 normal heart sound present, No gallops present (Cardio), No murmurs present (Cardio), No rub (Cardio) and Peripheral pulses 2+ throughout RATE: regular rate RHYTHM: regular rhythm HEART SOUNDS: S1 normal heart sound present and S2 normal heart sound present PERIPHERAL PULSES: Peripheral pulses 2+ throughout GI: COMMON NORMALS: Normal to inspection, nondistended, normoactive bowel sounds present, Soft to palpation, non-tender, No hepatosplenomegaly present and no masses AUSCULTATION: Yes normoactive bowel sounds PALPATION: Yes Soft to palpation and Yes No hepatosplenomegaly present RECTAL EXAM: Yes deferred Extremity: COMMON NORMALS: no clubbing, cyanosis or edema and no pedal edema Urinary Catheter Management^: 2-way Urethral: Cath Placed During This Visit: yes Reason for Continuing Indwelling Catheter: Acute Urinary Retention or Obstruction Urinary Catheter Date of Insertion: 08/25/21 Urinary Catheter Time of Insertion: 19:47 Data : 08/27/21 03:15 08/27/21 06:31 Micro: Microbiology 08/25/21 14:01 Blood Culture - Preliminary Blood NEGATIVE TO DATE 08/25/21 13:38 Blood Culture - Preliminary Blood NEGATIVE TO DATE 08/26/21 09:31 Gram Stain - Final Neck 08/25/21 17:20 Gram Stain - Preliminary Sputum - Endotracheal Tube Aspirate A&P Assessment and plan (1) Sepsis: Status: Acute (2) Necrotizing fasciitis: Status: Acute (3) CHF (congestive heart failure): Status: Acute (4) Acute encephalopathy: Status: Acute (5) COPD (chronic obstructive pulmonary disease): Status: Acute (6) Diabetes: Status: Acute (7) Status post cervical spinal fusion: Status: Acute (8) Hypertension: Status: Acute Additional A&P Information 65 year old male with PMH of CAD S/P Stent, HTN, DM, COPD , CHF , recent l C2-T2 Posterior spine fusion on 08/22 came in today with c/o headache as well as neck pain and stiffness after he left AMA on 08/22. #Sepsis secondary to possible wound infection/possible pneumonia Fever, hypotension, need for Levophed. Blood culture: NTD Sputum culture:GNR CT chest:Patchy bilateral largely dependent left greater than right airspace infiltrates. Procalcitonin:0.77 Continue Vanco and meropenem for now # Wound dehiscence with possible underlying infection: Follow blood culture ESR : CRP: 186 Procalcitonin:0.77 Currently the plan is to continue with broad-spectrum IV antibiotics Orthopedic on board. #CT suggestive of possible necrotizing fasciitis: Cannot conclusively rule out post op complication. Plan as above #Heart failure: Follow 2D echo Currently compensated Monitor intake output charting #COPD: DuoNebs Supplemental oxygen as needed #History of coronary artery disease status post stent: #Diabetes: Sliding scale insulin Monitor fingerstick glucose #Acute encephalopathy: Acute encephalopathy : Cannot completely rule out VICTORIAN LITERATURE PROFESSOR involvement: Currently patient is intubated sedated on mechanical ventilation. Antibiotics as above CODE STATUS: Full code DVT prophylaxis: Lovenox 40 MG subcu daily Attestations Medical Necessity Statement*: Patient needs to be in hospital for management of Above-defined problems. Time Spent in Patient Care: Greater than 35 minutes The high probability of a clinically significant, sudden or life threatening deterioration of the patient's [] system(s) required my full and direct attention, intervention and personal management. The critical care time is as shown. 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
[2021-08-26] MEDS: insulin lispro 100 unit/1 mL SUBCUT (17:13)
--- NOTE | 2021-08-26 18:07 | PC.NURSE ---
Shift Note Frequent safety and comfort rounds continue. Orders and nursing care completed as indicated. Patient taken to surgery this am, see Dr. Flores's note. Patient to lay flat-30degrees for next [address] Flores's orders. Patient came back hemovac in place. Patient remains on ventilator Mode:VC-AC FiO2:35% Peep:5 RR:14 VT:500. See Mar for needed sedation. Patient became hypotensive at 1750, Dr. Lerner called and reported to bedside and orders to start levophed. Oral care and positon changes completed every two hours with help of other nursing staff. Patient monitored for response to intervention and treatments. Education provided includes new medications, upcoming procedures, frequent position changes, and oral care, verbalized understanding. Will continue to monitor.
[2021-08-26 20:10] LABS: Vancomycin Trough 23.1 ug/mL (10-15)
[2021-08-26 20:27] LABS: Glucose Point of Care 114 mg/dL (70-110)
[2021-08-27] VITALS (97 sets, daily range): BP systolic 79–129; BP diastolic 51–72; PULSE 75–109; RESP 15–24; TEMP 36.2–37.3; O2SAT 93–100
[2021-08-27] MEDS: meropenem 2,000 MG in sodium chloride 0.9% (100 ml) 100 ML 280 MG IV ×3 (02:52→17:01)
[2021-08-27] MEDS: propofol 1,000 MG/100 ML INJ 23.62 MG IV ×4 (02:59→20:25)
[2021-08-27 04:18] LABS: Basophils # 0.2 10^3/uL (0.0-0.1); Eosinophils # 0.3 10^3/uL (0.0-0.8); Eosinophils % 1.8 %; Hematocrit 37.4 % (42.0-52.0); Hemoglobin 12.3 g/dL (11.7-16.6); Lymphocytes # 1.3 10^3/uL (0.8-4.8); Lymphocytes % 8.8 %; Mean Corpuscular HGB Conc 32.9 g/dL (30.0-36.0); Mean Corpuscular Hemoglobin 34.9 pg (28.0-34.0); Mean Corpuscular Volume 106.3 fl (80-94); Mean Platelet Volume 12.2 fL (7.4-10.4); Monocytes # 1.7 10^3/uL (0.2-0.9); Monocytes % 11.4 %; Neutrophils # 11.18 10^3/uL (1.8-7.7); Neutrophils % 76.3 %; Nucleated Red Blood Cells % 0 %; Platelet Count 219 10^3/cmm (130-400); Red Blood Count 3.52 10^6/uL (4.1-5.3); Red Cell Distribution Width 14.5 % (12.1-15.1); White Blood Count 14.7 10^3/uL (4.0-10.0)
[2021-08-27] MEDS: vancomycin 1,250 MG/250 ML PIGGYBACK 250 MG IV ×2 (04:42→10:27)
[2021-08-27 05:04] LABS: Slide Review Slide Review Perform
[2021-08-27] MEDS: enoxaparin 40 mg/0.4 mL Syringe SUBCUT (05:29)
[2021-08-27 07:22] LABS: Alanine Aminotransferase 10 U/L (0-41); Albumin Level 2.6 g/dL (3.5-5.2); Alkaline Phosphatase 75 IU/L (40-130); Blood Urea Nitrogen 18 mg/dL (8-23); Calcium 8.5 mg/dL (8.5-10.5); Carbon Dioxide 12 mmol/L (22-29); Chloride 101 mmol/L (98-107); Glucose 126 mg/dL (65-115); Osmolality Calculated 273 mOsm/kg (285-295); Sodium 130 mmol/L (136-145); Total Bilirubin 0.2 mg/dL (0.15-1.2); Total Protein 5.6 g/dL (6.6-8.7)
[2021-08-27 07:37] LABS: Glucose Point of Care 146 mg/dL (70-110)
[2021-08-27] MEDS: insulin lispro 100 unit/1 mL SUBCUT (07:37)
[2021-08-27 07:38] LABS: Anion Gap 20.8 (5-19); Aspartate Amino Transferase 22 U/L (0-40); Potassium 3.8 mmol/L (3.5-5.1)
[2021-08-27] MEDS: sodium chloride 0.9% 1,000 ML 50 ML IV (09:53)
--- NOTE | 2021-08-27 10:33 | P.PN_ITS ---
Subjective Subjective: Interval history: Seen and examined this morning, Continue to be on mechanical ventilation. Continue to need minimum of levophed. Tamx overnight : 101.2 Medications: Medication Review Details: Generic Name Dose Route Start Last Admin Trade Name Eugene PRN Reason Stop Dose Admin Acetaminophen 650 mg 08/25/21 18:30 08/26/21 02:48 Acetaminophen 32 5 Mg Tablet PO 650 mg Q6H PRN Administration Mild/Mod Pain Or Temp >/= 101 Enoxaparin Sodium 40 mg 08/25/21 18:30 08/25/21 18:48 Enoxaparin 40 Mg /0.4 Ml Syringe SUBCUT 40 mg Q24H NAYE Administration Propofol 1,000 mg in 100 m ls @ 0 mls/hr 08/25/21 17:30 08/26/21 08:35 Diprivan IV 0 mcg/kg/min .Q0M NAYE 0 mls/hr Titration Protocol Per Protocol Fentanyl 1,000 mcg / Sodium 100 mls @ 0 mls/h r 08/25/21 17:30 08/26/21 08:35 Chloride IV 0 mcg/hr .Q0M NAYE 0 mls/hr Titration Protocol Per Protocol Meropenem 2,000 mg / Sodium 140 mls @ 280 mls /hr 08/25/21 18:00 08/26/21 03:05 Chloride IV Infused Q8H NAYE Infusion Vancomycin/PEG/NAD A/Lysine/Water 1,250 mg in 250 m ls @ 250 mls/hr 08/25/21 19:30 08/26/21 05:19 Vancocin IV Infused Q8H NAYE Infusion Lidocaine HCl 5 ml / Potassium 105 mls @ 25 mls/ hr 08/26/21 07:46 08/26/21 08:35 Chloride IV 08/26/21 11:57 0 mls/hr ONCE ONE Infusion Insulin Human Lisp ro 0 unit 08/25/21 18:30 08/26/21 07:28 Insulin Lispro 1 00 Unit/1 Ml SUBCUT Not Given WM&BEDTIME NAYE Protocol Vitals/I&O/Wt Last Vital Signs Temp 99.1 F 08/28/21 08:00 Pulse 100 08/28/21 09:30 Resp 16 08/28/21 09:25 BP 86/49 08/28/21 09:30 Pulse Ox 100 08/28/21 09:30 08/27/21 08/28/21 08/28/21 22:59 06:59 14:59 Intake Total 369.601 / 8577.677 9496.000 / 2399.601 100 / 100 Output Total 1000 / 1000 850 / 1850 Balance -630.399 / 59.601 490.000 / 549.601 100 / 100 Weight last 48 hrs Weight 95.481 kg Physical Exam Narrative: EXAM NARRATIVE: Intubated and sedated, on mechanical ventilation HENMT: COMMON NORMALS: normocephalic and atraumatic HEAD & SCALP: normocephalic and atraumatic Resp: COMMON NORMALS: clear to auscultation bilaterally AUSCULTATION: clear to auscultation bilaterally Cardio: COMMON NORMALS: regular rate, regular rhythm, S1 normal heart sound present, S2 normal heart sound present, No gallops present (Cardio), No murmurs present (Cardio), No rub (Cardio) and Peripheral pulses 2+ throughout RATE: regular rate RHYTHM: regular rhythm HEART SOUNDS: S1 normal heart sound present and S2 normal heart sound present PERIPHERAL PULSES: Peripheral pulses 2+ throughout GI: COMMON NORMALS: Normal to inspection, nondistended, normoactive bowel sounds present, Soft to palpation, non-tender, No hepatosplenomegaly present and no masses AUSCULTATION: Yes normoactive bowel sounds PALPATION: Yes Soft to palpation and Yes No hepatosplenomegaly present RECTAL EXAM: Yes deferred Extremity: COMMON NORMALS: no clubbing, cyanosis or edema and no pedal edema Urinary Catheter Management^: 2-way Urethral: Cath Placed During This Visit: yes Reason for Continuing Indwelling Catheter: Accurate Measurement of Urinary Output in Critically Ill Patients Urinary Catheter Date of Insertion: 08/25/21 Urinary Catheter Time of Insertion: 19:47 Data : 08/27/21 03:15 08/27/21 06:31 Micro: Microbiology 08/26/21 09:31 Gram Stain - Final Neck Anaerobic Culture - Preliminary Abscess Culture - Preliminary 08/25/21 20:50 Urine Culture - Preliminary Urine Catheterized 08/25/21 17:20 Gram Stain - Preliminary Sputum - Endotracheal Tube Aspirate Sputum Culture - Preliminary Gram Negative Rods A&P Assessment and plan (1) Sepsis: Status: Acute (2) Necrotizing fasciitis: Status: Acute (3) CHF (congestive heart failure): Status: Acute (4) Acute encephalopathy: Status: Acute (5) COPD (chronic obstructive pulmonary disease): Status: Acute (6) Diabetes: Status: Acute (7) Status post cervical spinal fusion: Status: Acute (8) Hypertension: Status: Acute Additional A&P Information 65 year old male with PMH of CAD S/P Stent, HTN, DM, COPD , CHF , recent l C2-T2 Posterior spine fusion on 08/22 came in today with c/o headache as well as neck pa in and stiffness after he left AMA on 08/22. #Sepsis secondary to possible wound infection/possible pneumonia/ Possible N.F Fever, hypotension, need for Levophed. Blood culture: NTD Sputum culture:GNR CT chest:Patchy bilateral largely dependent left greater than right airspace infiltrates. Procalcitonin:0.77 Continue Vanco and meropenem for now # Wound dehiscence with possible underlying infection: Follow blood culture ESR : CRP: 186 Procalcitonin:0.77 Currently the plan is to continue with broad-spectrum IV antibiotics Orthopedic on board. #CT suggestive of possible necrotizing fasciitis: Cannot conclusively rule out post op complication. Plan as above #Heart failure: Follow 2D echo Currently compensated Monitor intake output charting #COPD: DuoNebs Supplemental oxygen as needed #History of coronary artery disease status post stent: #Diabetes: Sliding scale insulin Monitor fingerstick glucose #Acute encephalopathy: Acute encephalopathy : Cannot completely rule out BAR HELPER inv olvement: Currently patient is intubated sedated on mechanical ventilation. Antibiotics as above CODE STATUS: Full code DVT prophylaxis: Lovenox 40 MG subcu daily Attestations Medical Necessity Statement*: Patient needs to be in hospital for the management of Sepsis. Time Spent in Patient Care: Greater than 35 minutes Critical Care Time: Critical Care Time (min): 45 Other Attestations: The high probability of a clinically significant, sudden or life threatening deterioration of the patient's [] system(s) required my full and direct attention, intervention and personal management. The critical care time is as shown. 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
--- NOTE | 2021-08-27 10:36 | P.PN_ITS ---
Subjective Subjective: Interval history: pt intubated Vitals/I&O/Wt Last Vital Signs Temp 97.2 F L 08/27/21 07:00 Pulse 88 08/27/21 09:15 Resp 20 H 08/27/21 09:50 BP 95/53 08/27/21 09:15 Pulse Ox 100 08/27/21 09:50 08/26/21 08/27/21 08/27/21 22:59 06:59 14:59 Intake Total 632.809 / 1293.837 698.848 / 1992.685 100 / 100 Output Total 1200 / 1200 900 / 2100 Balance -567.191 / 93.837 -201.152 / -107.315 100 / 100 Weight last 48 hrs Weight 217 lb Physical Exam Narrative: EXAM NARRATIVE: drain with minimal output Urinary Catheter Management^: 2-way Urethral: Cath Placed During This Visit: yes Reason for Continuing Indwelling Catheter: Accurate Measurement of Urinary Output in Critically Ill Patients Urinary Catheter Date of Insertion: 08/25/21 Urinary Catheter Time of Insertion: 19:47 Data : 08/27/21 03:15 08/27/21 06:31 Micro: Microbiology 08/25/21 14:01 Blood Culture - Preliminary Blood NEGATIVE TO DATE 08/25/21 13:38 Blood Culture - Preliminary Blood NEGATIVE TO DATE 08/26/21 09:31 Gram Stain - Final Neck A&P Assessment and plan (1) Status post cervical spinal fusion: POD#1 hematoma evacuation will keep intubated to allow incision and wound to begin to heal. 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
[2021-08-27 11:16] LABS: Glucose Point of Care 138 mg/dL (70-110)
[2021-08-27] MEDS: ipratropium-albuterol 3 mL Neb INHALATION (14:02)
[2021-08-27 16:43] LABS: Glucose Point of Care 134 mg/dL (70-110)
--- NOTE | 2021-08-27 17:25 | PC.NURSE ---
Shift Note Frequent safety and comfort rounds continue. Orders and nursing care completed as indicated. Patient remains on ventilator Mode:VC-AC FiO2:30% Peep:5 RR:14 VT:500. Plan to extubate tomorrow morning. Levophed turned off this evening, continuing to monitor closely. Oral care and position changes completed every two hours with help of other nursing staff. Patient monitored for response to intervention and treatments. called today and updated on plan of care and any overnight changes. Education provided includes new medications, upcoming procedures, frequent position changes, and oral care, verbalized understanding. Will continue to monitor.
[2021-08-27 19:43] LABS: Vancomycin Random 34.4 ug/mL (20.0-40.0)
[2021-08-27 20:59] LABS: Glucose Point of Care 121 mg/dL (70-110)
[2021-08-28] VITALS (99 sets, daily range): BP systolic 86–127; BP diastolic 49–81; PULSE 75–106; RESP 16–22; TEMP 36.9–37.3; O2SAT 92–100; BMI 27.8
[2021-08-28] MEDS: meropenem 2,000 MG in sodium chloride 0.9% (100 ml) 100 ML 280 MG IV (02:04)
[2021-08-28] MEDS: propofol 1,000 MG/100 ML INJ 20.67 MG IV ×4 (04:14→20:39)
[2021-08-28] MEDS: enoxaparin 40 mg/0.4 mL Syringe SUBCUT (05:20)
[2021-08-28] MEDS: sodium chloride 0.9% 1,000 ML 50 ML IV (05:57)
--- NOTE | 2021-08-28 07:04 | PC.NURSE ---
Shift Note Frequent safety and comfort rounds continue. Orders and/or nursing care completed as indicated. Patient monitored for response to intervention and treatment(s). Overall uneventful shift; patient's blood pressure at beginning of shift maintaining a MAP of 63-64, Levophed restarted as indicated. Sedation titrated overnight per OCT. Bed bath and linen change provided. No output from Hemovac recorded. Vent settings remain the same. Patient able to follow commands and open eyes to voice. Education provided includes lovenox information, activity for the night, and infection control. Will continue to monitor.
[2021-08-28] MEDS: ipratropium-albuterol 3 mL Neb INHALATION ×5 (07:29→23:48)
[2021-08-28 07:40] LABS: Glucose Point of Care 138 mg/dL (70-110)
[2021-08-28] MEDS: sodium chloride 0.9% 500 ML 999 ML IV ×2 (10:06→16:13)
[2021-08-28] MEDS: piperacillin-tazobactam 3.375 GM in sodium chloride 0.9% (plus) 50 ML IV ×2 (10:21→17:35)
--- NOTE | 2021-08-28 10:44 | PM.PN ---
Subjective Subjective: Interval history: Patient was seen and examined this morning, continues to require Levophed, as his blood pressure has been soft. Has remained afebrile overnight, his other vitals and labs have been reviewed. Medications: Reviewed: Yes Medication Review Details: Generic Name Dose Route Start Last Admin Trade Name Freq PRN Reason Stop Dose Admin Acetaminophen 650 mg 08/25/21 18:30 08/26/21 19:43 Acetaminophen 32 5 Mg Tablet PO 650 mg Q6H PRN Administration Mild/Mod Pain Or Temp >/= 101 Albuterol/Ipratrop ium 3 ml 08/27/21 13:05 08/28/21 07:29 Ipratropium-Albu terol 3 Ml Neb INHALATION 3 ml Q4H.RESPIRATORY S CH Administration Docusate Sodium 100 mg 08/26/21 18:00 08/28/21 07:58 Docusate Sodium 100 Mg Capsule PO Not Given BID NAYE Enoxaparin Sodium 40 mg 08/27/21 06:00 08/28/21 05:20 Enoxaparin 40 Mg /0.4 Ml Syringe SUBCUT 40 mg Q24H NAYE Administration Propofol 1,000 mg in 100 m ls @ 0 mls/hr 08/25/21 17:30 08/28/21 09:18 Diprivan IV 35 mcg/kg/min .Q0M NAYE 20.67 mls/hr Administration Protocol Per Protocol Fentanyl 1,000 mcg / Sodium 100 mls @ 0 mls/h r 08/25/21 17:30 08/28/21 04:14 Chloride IV 75 mcg/hr .Q0M NAYE 7.5 mls/hr Administration Protocol Per Protocol Vancomycin/PEG/NAD A/Lysine/Water 1,250 mg in 250 m ls @ 250 mls/hr 08/25/21 19:30 08/27/21 11:27 Vancocin IV Infused Q8H NAYE Infusion Norepinephrine Bit artrate 4 mg 254 mls @ 0 mls/h r 08/26/21 18:00 08/27/21 19:53 / Dextrose IV 2 mcg/min .Q0M NAYE 7.62 mls/hr Administration Protocol Per Protocol Sodium Chloride 1,000 mls @ 50 ml s/hr 08/27/21 09:30 08/28/21 05:57 Sodium Chloride 0.9% IV 50 mls/hr .Q20H NAYE Administration Piperacillin Sod/T azobactam 50 mls @ 12.5 mls /hr 08/28/21 10:15 08/28/21 10:21 Sod 3.375 gm/ So dium Chloride IV 12.5 mls/hr Q8H NAYE Administration Insulin Human Lisp ro 0 unit 08/25/21 18:30 08/28/21 07:39 Insulin Lispro 1 00 Unit/1 Ml SUBCUT Not Given [facility] Protocol Vitals/I&O/Wt Last Vital Signs Temp 99.1 F 08/28/21 08:00 Pulse 100 08/28/21 09:30 Resp 16 08/28/21 09:25 BP 86/49 08/28/21 09:30 Pulse Ox 100 08/28/21 09:30 08/27/21 08/28/21 08/28/21 22:59 06:59 14:59 Intake Total 369.601 / 2739.798 6596.000 / 2399.601 100 / 100 Output Total 1000 / 1000 850 / 1850 Balance -630.399 / 59.601 490.000 / 549.601 100 / 100 Weight last 48 hrs Weight 95.481 kg Physical Exam Narrative: EXAM NARRATIVE: Intubated and sedated, on mechanical ventilation HENMT: COMMON NORMALS: normocephalic and atraumatic HEAD & SCALP: normocephalic and atraumatic Resp: COMMON NORMALS: clear to auscultation bilaterally EFFORT & INSPECTION: Yes symmetric chest movement AUSCULTATION: clear to auscultation bilaterally Cardio: COMMON NORMALS: regular rate, regular rhythm, S1 normal heart sound present, S2 normal heart sound present, No gallops present (Cardio), No murmurs present (Cardio), No rub (Cardio) and Peripheral pulses 2+ throughout RATE: regular rate RHYTHM: regular rhythm HEART SOUNDS: S1 normal heart sound present and S2 normal heart sound present PERIPHERAL PULSES: Peripheral pulses 2+ throughout GI: COMMON NORMALS: Normal to inspection, nondistended, normoactive bowel sounds present, Soft to palpation, non-tender, No hepatosplenomegaly present and no masses AUSCULTATION: Yes normoactive bowel sounds PALPATION: Yes Soft to palpation and Yes No hepatosplenomegaly present RECTAL EXAM: Yes deferred Extremity: COMMON NORMALS: no clubbing, cyanosis or edema and no pedal edema Urinary Catheter Management^: 2-way Urethral: Cath Placed During This Visit: yes Reason for Continuing Indwelling Catheter: Accurate Measurement of Urinary Output in Critically Ill Patients Urinary Catheter Date of Insertion: 08/25/21 Urinary Catheter Time of Insertion: 19:47 Data : 08/27/21 03:15 08/27/21 06:31 Micro: Microbiology 08/26/21 09:31 Gram Stain - Final Neck Anaerobic Culture - Preliminary Abscess Culture - Preliminary 08/25/21 20:50 Urine Culture - Preliminary Urine Catheterized 08/25/21 17:20 Gram Stain - Preliminary Sputum - Endotracheal Tube Aspirate Sputum Culture - Preliminary Gram Negative Rods A&P Assessment and plan (1) Sepsis: Status: Acute (2) Necrotizing fasciitis: Status: Acute (3) CHF (congestive heart failure): Status: Acute (4) Acute encephalopathy: Status: Acute (5) COPD (chronic obstructive pulmonary disease): Status: Acute (6) Diabetes: Status: Acute (7) Status post cervical spinal fusion: Status: Acute (8) Hypertension: Status: Acute Additional A&P Information 65 year old male with PMH of CAD S/P Stent, HTN, DM, COPD , CHF , recent l C2-T2 Posterior spine fusion on 08/22 came in today with c/o headache as well as neck pain and stiffness after he left AMA on 08/22. #Sepsis secondary to possible wound infection/possible pneumonia/ Possible N.F Fever, hypotension, need for Levophed. Blood culture: NTD Sputum culture:GNR CT chest:Patchy bilateral largely dependent left greater than right airspace infiltrates. Procalcitonin:0.77 Initially on Vanco and meropenem. Has been switched to Vanco and Zosyn. # Wound dehiscence with possible underlying infection: Follow blood culture Follow wound culture: ESR : CRP: 186 Procalcitonin:0.77 Currently the plan is to continue with broad-spectrum IV antibiotics Antibiotic as above Orthopedic on board. #CT suggestive of possible necrotizing fasciitis: Cannot conclusively rule out post op complication. Plan as above #Heart failure: Follow 2D echo Currently compensated Monitor intake output charting #COPD: DuoNebs Supplemental oxygen as needed #History of coronary artery disease status post stent: #Diabetes: Sliding scale insulin Monitor fingerstick glucose #Acute encephalopathy: Acute encephalopathy : Cannot completely rule out DRAGLINE ENGINEER involvement: Currently patient is intubated sedated on mechanical ventilation. Antibiotics as above CODE STATUS: Full code DVT prophylaxis: Lovenox 40 MG subcu daily Attestations Medical Necessity Statement*: Patient needs to be notes for management of sepsis. Time Spent in Patient Care: Greater than 35 minutes Critical Care Time: Critical Care Time (min): 40 Other Attestations: The high probability of a clinically significant, sudden or life threatening deterioration of the patient's [] system(s) required my full and direct attention, intervention and personal management. The critical care time is as shown. 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
--- NOTE | 2021-08-28 10:47 | PC.SOCIAL ---
IMM Update: pg 2 of IMM updated and reviewed via message left on patients phone.
[2021-08-28 10:51] LABS: Glucose Point of Care 138 mg/dL (70-110)
--- NOTE | 2021-08-28 10:54 | USCV_ITS ---
Jase Warren Age: 65 Gender: M : 1955 Exam Date: 08/28/2021 14:43 Ordering Phys: Geo Lerner MD Technologist: TRAN [place] [facility] [place]: S[place]is BP: 99 / 54 HR: 84 Rhythm: Sinus Technical Quality: Fair MEASUREMENTS (Male / Female) Normal Values 2D ECHO LV Diastolic Diameter PLAX 4.5 cm 4.2 - 5.9 / 3.9 - 5.3 cm LV Systolic Diameter PLAX 3.2 cm IVS Diastolic Thickness 1.7 cm 0.6 - 1.0 / 0.6 - 0.9 cm IVS Systolic Thickness 2.0 cm LVPW Diastolic Thickness 1.1 cm 0.6 - 1.0 / 0.6 - 0.9 cm LVPW Systolic Thickness 1.6 cm RV Chamber Size 2.5 cm LVOT Diameter 1.9 cm LV Ejection Fraction 2D Teich 58.2 % LV Ejection Fraction MOD 2C 66.2 % LV Ejection Fraction 2C AL 66.2 % LA Diameter 3.0 cm LA Width 3.1 cm LA Height 4.4 cm RA Width 2.7 cm RA Height 4.0 cm Aorta at Sinotubular Diameter 2.0 cm M-MODE Aortic Annulus Diameter 3.6 cm LA Ao Ratio MM 1.0 MV E Point Septal Separation 0.6 cm DOPPLER AV Peak Velocity 246.7 cm/s LVOT Peak Velocity 126.0 cm/s AV Area Cont Eq vti 1.8 cm squared AV Area Cont Eq pk 1.5 cm squared MV Area PHT 2.0 cm squared Mitral E to A Ratio 0.8 MV E' Velocity 56.5 cm/s Mitral E to MV E' Ratio 15.2 Mitral E to LV E' Lateral Ratio 13.6 Mitral E to LV E' Septal Ratio 17.2 TV Peak E Velocity 57.0 cm/s Right Atrial Pressure 15.0 mmHg RV Acceleration Time 0.1 s RV Ejection Time 0.2 s RV AcT/ET 0.3 FINDINGS Left Ventricle Normal left ventricular size, systolic function and wall thickness, with no regional wall motion abnormalities. Left ventricular ejection fraction is estimated at 65 %. Grade II diastolic dysfunction, moderately elevated filling pressures. Right Ventricle Normal right ventricular size and systolic function. RVSP could not be calculated due to incomplete tricuspid regurgitation velocity profile. Right Atrium Normal right atrial size. Left Atrium Normal left atrial size. Mitral Valve Structurally normal mitral valve. No mitral valve stenosis. Trace mitral valve regurgitation. Aortic Valve Thickened and calcified aortic valve. No aortic valve stenosis. [id number] aortic valve regurgitation. Tricuspid Valve Structurally normal tricuspid valve. Trace tricuspid valve regurgitation. Pulmonic Valve Pulmonic valve not well visualized. No pulmonary valve stenosis. No pulmonary valve regurgitation. Pericardium No pericardial effusion. Aorta Normal size aortic root and proximal ascending aorta. Dilated inferior vena cava with some respiratory variation. CONCLUSIONS 1. Normal left ventricular size, systolic function and wall thickness, with no regional wall motion abnormalities. Left ventricular ejection fraction is estimated at 65 %. Grade II diastolic dysfunction, moderately elevated filling pressures. 2. Yuga-[id number] aortic valve regurgitation. 3. Dilated inferior vena cava with some respiratory variation. 4. When compared to previous study dated 04/14/2017, left ventricular systolic function seems to have improved. Susana Ni MD (Electronically Signed) Final Date: 28 August 2021 17:50 S
--- NOTE | 2021-08-28 11:17 | PM.PN ---
Subjective Subjective: Interval history: remains intubated Vitals/I&O/Wt Last Vital Signs Temp 99.1 F 08/28/21 08:00 Pulse 100 08/28/21 09:30 Resp 16 08/28/21 09:25 BP 86/49 08/28/21 09:30 Pulse Ox 100 08/28/21 09:30 08/27/21 08/28/21 08/28/21 22:59 06:59 14:59 Intake Total 369.601 / 3462.744 9686.000 / 2399.601 794.921 / 794.921 Output Total 1000 / 1000 850 / 1850 Balance -630.399 / 59.601 490.000 / 549.601 794.921 / 794.921 Weight last 48 hrs Weight 210 lb 8 oz Physical Exam Urinary Catheter Management^: 2-way Urethral: Cath Placed During This Visit: yes Reason for Continuing Indwelling Catheter: Accurate Measurement of Urinary Output in Critically Ill Patients Urinary Catheter Date of Insertion: 08/25/21 Urinary Catheter Time of Insertion: 19:47 Data : 08/27/21 03:15 08/27/21 06:31 Micro: Microbiology 08/25/21 20:50 Urine Culture - Final Urine Catheterized 08/26/21 09:31 Gram Stain - Final Neck Anaerobic Culture - Preliminary Abscess Culture - Preliminary 08/25/21 17:20 Gram Stain - Preliminary Sputum - Endotracheal Tube Aspirate Sputum Culture - Preliminary Gram Negative Rods A&P Assessment and plan (1) Status post cervical spinal fusion: d/c drain Status: Acute Attestations Medical Necessity Statement*: remains intubated Coding Level of Care Code Acute 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
[2021-08-28] MEDS: insulin lispro 100 unit/1 mL SUBCUT ×2 (17:35→21:01)
[2021-08-28 17:36] LABS: Glucose Point of Care 152 mg/dL (70-110)
[2021-08-28 18:24] LABS: Basophils # 0.1 10^3/uL (0.0-0.1); Eosinophils # 0.3 10^3/uL (0.0-0.8); Eosinophils % 2.7 %; Hematocrit 37.1 % (42.0-52.0); Hemoglobin 11.3 g/dL (11.7-16.6); Lymphocytes % 7.7 %; Mean Corpuscular HGB Conc 30.5 g/dL (30.0-36.0); Mean Corpuscular Hemoglobin 33.6 pg (28.0-34.0); Mean Corpuscular Volume 110.4 fl (80-94); Mean Platelet Volume 11.2 fL (7.4-10.4); Monocytes % 8.4 %; Neutrophils # 9.82 10^3/uL (1.8-7.7); Neutrophils % 79.7 %; Nucleated Red Blood Cells % 0 %; Platelet Count 225 10^3/cmm (130-400); Red Blood Count 3.36 10^6/uL (4.1-5.3); Red Cell Distribution Width 14.7 % (12.1-15.1); White Blood Count 12.3 10^3/uL (4.0-10.0)
--- NOTE | 2021-08-28 18:35 | PC.NURSE ---
Shift Note Frequent safety and comfort rounds continue. Orders and nursing care completed as indicated. Patient remains on ventilator Mode:VC-AC FiO2:30% Peep:5 RR:14 VT:500. Plan to possibly extubate tomorrow morning, unable to accomplish today per physician's orders as patient is needed more levophed. Oral care and position changes completed every two hours with help of other nursing staff. Patient monitored for response to intervention and treatments. visited patient today and updated on plan of care and overnight status. Education provided includes new medications, upcoming procedures, frequent position changes, and oral care, verbalized understanding. Will continue to monitor.
[2021-08-28 18:43] LABS: Alanine Aminotransferase 8 U/L (0-41); Albumin Level 2.6 g/dL (3.5-5.2); Alkaline Phosphatase 72 IU/L (40-130); Anion Gap 19.9 (5-19); Aspartate Amino Transferase 12 U/L (0-40); Blood Urea Nitrogen 14 mg/dL (8-23); Carbon Dioxide 14 mmol/L (22-29); Chloride 112 mmol/L (98-107); Globulin 2.7 g/dL (1.3-4.6); Glucose 145 mg/dL (65-115); Osmolality Calculated 297 mOsm/kg (285-295); Potassium 3.9 mmol/L (3.5-5.1); Sodium 142 mmol/L (136-145); Total Bilirubin 0.2 mg/dL (0.15-1.2); Total Protein 5.3 g/dL (6.6-8.7)
[2021-08-28 18:55] LABS: Vancomycin Random 17.2 ug/mL (20.0-40.0)
[2021-08-28] MEDS: morphine 4 mg/mL SDV 1 mL 2 MG IVP (20:40)
[2021-08-29] VITALS (88 sets, daily range): BP systolic 86–161; BP diastolic 48–83; PULSE 75–113; RESP 12–28; TEMP 36.8–37.3; O2SAT 94–100; BMI 28.6
[2021-08-29] MEDS: morphine 4 mg/mL SDV 1 mL 2 MG IVP ×2 (00:08→03:48)
[2021-08-29] MEDS: piperacillin-tazobactam 3.375 GM in sodium chloride 0.9% (plus) 50 ML IV ×3 (01:37→18:29)
[2021-08-29] MEDS: propofol 1,000 MG/100 ML INJ 20.67 MG IV ×2 (01:42→06:10)
[2021-08-29] MEDS: ipratropium-albuterol 3 mL Neb INHALATION ×6 (03:09→23:31)
[2021-08-29] MEDS: sodium chloride 0.9% 1,000 ML 50 ML IV (03:48)
[2021-08-29] MEDS: enoxaparin 40 mg/0.4 mL Syringe SUBCUT (05:06)
--- NOTE | 2021-08-29 06:04 | PC.PHAR ---
Vancomycin trough is down to 17.2 so we are resuming Vancomycin IVPB and a dose of 1gm every 8 hours with a trorugh to be obtained before the fourth dose.
[2021-08-29] MEDS: vancomycin 1,000 MG in sodium chloride 0.9% 250 ML 250 MG IV ×3 (06:07→21:34)
[2021-08-29 06:38] LABS: Basophils # 0.2 10^3/uL (0.0-0.1); Basophils % 1.2 %; Eosinophils # 0.4 10^3/uL (0.0-0.8); Eosinophils % 3.3 %; Hematocrit 32.1 % (42.0-52.0); Hemoglobin 10.1 g/dL (11.7-16.6); Lymphocytes % 7.7 %; Mean Corpuscular HGB Conc 31.5 g/dL (30.0-36.0); Mean Corpuscular Hemoglobin 33.4 pg (28.0-34.0); Mean Corpuscular Volume 106.3 fl (80-94); Monocytes # 1.1 10^3/uL (0.2-0.9); Monocytes % 8.4 %; Neutrophils # 10.63 10^3/uL (1.8-7.7); Neutrophils % 78.7 %; Nucleated Red Blood Cells % 0 %; Platelet Count 283 10^3/cmm (130-400); Red Blood Count 3.02 10^6/uL (4.1-5.3); Red Cell Distribution Width 14.7 % (12.1-15.1); White Blood Count 13.5 10^3/uL (4.0-10.0)
[2021-08-29 06:55] LABS: Blood Urea Nitrogen 12 mg/dL (8-23); Carbon Dioxide 15 mmol/L (22-29); Chloride 113 mmol/L (98-107); Glomerular Filtration Rate 113.2 mL/min (90-130); Glucose 152 mg/dL (65-115); Osmolality Calculated 301 mOsm/kg (285-295); Sodium 144 mmol/L (136-145)
[2021-08-29] MEDS: insulin lispro 100 unit/1 mL SUBCUT ×4 (08:05→20:14)
--- NOTE | 2021-08-29 08:24 | P.PN_ITS ---
Subjective Subjective: Interval history: POD 3 Patient intubated resting comfortably. Nurses present. Vitals/I&O/Wt Last Vital Signs Temp 99.2 F 08/28/21 17:00 Pulse 89 08/29/21 06:00 Resp 18 08/29/21 06:33 BP 110/59 08/29/21 06:00 Pulse Ox 97 08/29/21 06:33 08/28/21 08/29/21 08/29/21 22:59 06:59 14:59 Intake Total 816.797 / 1310.618 9364.657 / 4126.575 250 / 250 Output Total 1000 / 1000 1000 / 2000 Balance -183.203 / 412.291 0757.657 / 2126.575 250 / 250 Weight last 48 hrs Weight 217 lb Weight 210 lb 8 oz Physical Exam Narrative: EXAM NARRATIVE: Patient is intubated. Dressing was changed it was clean and dry. Hands are warm good cap refill radial pulses 1+. Legs are warm with good cap refill and dorsalis pedis are 1+. Urinary Catheter Management^: 2-way Urethral: Cath Placed During This Visit: yes Reason for Continuing Indwelling Catheter: Accurate Measurement of Urinary Output in Critically Ill Patients Urinary Catheter Date of Insertion: 08/25/21 Urinary Catheter Time of Insertion: 19:47 Data : 08/29/21 06:25 08/29/21 06:25 Micro: Microbiology 08/25/21 17:20 Gram Stain - Preliminary Sputum - Endotracheal Tube Aspirate Sputum Culture - Preliminary Gram Negative Rods 08/26/21 09:31 Gram Stain - Final Neck Anaerobic Culture - Preliminary Abscess Culture - Preliminary 08/25/21 20:50 Urine Culture - Final Urine Catheterized A&P Assessment and plan (1) Status post cervical spinal fusion: Dressing was changed new [place] island dressing applied. Would recommend application of a [place] collar. Keep head of the bed up to at least 30 degrees. 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
[2021-08-29] MEDS: FUROsemide 10 mg/mL SDV 4mL 40 MG IVP ×2 (08:57→15:38)
--- NOTE | 2021-08-29 09:22 | PC.CHAP ---
Pastoral Care Encounter/Spiritual Assessment Type of Contact [] Declined forming fixer visit [] Patient/Family/Request visit [] Outpatient visit [] Follow-up visit [] Physician referral [] Code/Alert [x] Routine visit [] Staff referral [] Actively dying [x] Patient sleeping [] Family support [] [] Out of room [] Palliative care [] [] Receiving care in room [] Pre-surgical visit [] Trauma [] Long length of stay [x] ICU visit [x] Other: isolated Relational/Emotional Strength [] Patient feels connected with others/family/visitors/staff [] Distress [] Loneliness/isolation [] Abandonment Spirituality of Patient [] Person of Zenobia [] Attends Christianity of their Zenobia [] Believes in Prayer [] Reads Bible or Church materials [] There are Spiritual issues to be addressed Nuclear Unit Operator Interventions [x] Prayer [] Active listening [] Non-anxious presence [] Spiritual/emotional support [] Crisis/trauma care [] Spiritual counseling [] Bereavement support [] Provided bereavement packet [] Provided Bible/devotional materials [] Provided toy/stuffed animal, coloring book to patient or family member [] Provided Communion [] Anointing/[place] [] Salvation [x] Completed spiritual assessment [] Other: Impact on Illness or Injury [] Angry [] Fearful [] Anxious [] Often cries [] Exhaustion [] Unable to work [] Unable to attend zoroastrianism [] Unable to walk/stand [] Unable to read [] Unable to drive [] Unable to eat/drink [] Unable to sleep [] Unable to be with family [] Patient intubated [] Other: Summary Time spent with patient
--- NOTE | 2021-08-29 13:21 | PM.PN ---
Subjective Subjective: Interval history: Patient was seen this morning, remains intubated, sedated on propofol fentanyl for sedation, does open his eyes, to his name, does not follow commands, afebrile overnight, on 2 of Levophed, Vitals/I&O/Wt Last Vital Signs Temp 99.2 F 08/29/21 08:00 Pulse 101 H 08/29/21 11:29 Resp 14 08/29/21 11:52 BP 93/63 08/29/21 09:45 Pulse Ox 97 08/29/21 11:52 08/28/21 08/29/21 08/29/21 22:59 06:59 14:59 Intake Total 816.797 / 8027.365 1827.657 / 4126.575 392.297 / 392.297 Output Total 1000 / 1000 1000 / 2000 Balance -183.203 / 678.544 7083.657 / 2126.575 392.297 / 392.297 Weight last 48 hrs Weight 98.43 kg Weight 95.481 kg Physical Exam Narrative: EXAM NARRATIVE: Surgical site examined, surgical site looks clean and dry, posterior neck, sutures in place, clean and dry, Const: COMMON NORMALS: no acute distress Resp: COMMON NORMALS: normal respiratory effort, No retractions, No use of accessory muscles and clear to auscultation bilaterally AUSCULTATION: clear to auscultation bilaterally Cardio: COMMON NORMALS: regular rate, regular rhythm, S1 normal heart sound present and S2 normal heart sound present RATE: regular rate RHYTHM: regular rhythm HEART SOUNDS: S1 normal heart sound present and S2 normal heart sound present GI: COMMON NORMALS: Normal to inspection, nondistended, normoactive bowel sounds present, Soft to palpation and non-tender PALPATION: Yes Soft to palpation Extremity: NARRATIVE EXTREMITY EXAM: 1+ pitting edema bilaterally, with generalized anasarca Urinary Catheter Management^: 2-way Urethral: Cath Placed During This Visit: yes Reason for Continuing Indwelling Catheter: Accurate Measurement of Urinary Output in Critically Ill Patients Urinary Catheter Date of Insertion: 08/25/21 Urinary Catheter Time of Insertion: 19:47 Data : 08/29/21 06:25 08/29/21 06:25 Micro: Microbiology 08/26/21 09:31 Gram Stain - Final Neck Anaerobic Culture - Preliminary Abscess Culture - Final 08/25/21 17:20 Gram Stain - Preliminary Sputum - Endotracheal Tube Aspirate Sputum Culture - Preliminary Gram Negative Rods 08/25/21 20:50 Urine Culture - Final Urine Catheterized A&P Assessment and plan (1) Sepsis: Status: Acute (2) Necrotizing fasciitis: Status: Acute (3) CHF (congestive heart failure): Status: Acute (4) Acute encephalopathy: Status: Acute (5) COPD (chronic obstructive pulmonary disease): Status: Acute (6) Diabetes: Status: Acute (7) Status post cervical spinal fusion: Status: Acute (8) Hypertension: Status: Acute Additional A&P Information 65 year old male with PMH of CAD S/P Stent, HTN, DM, COPD , CHF , recent l C2-T2 Posterior spine fusion on 08/22 came in today with c/o headache as well as neck pain and stiffness after he left AMA on 08/22. Acute respiratory failure -Remains on ventilator support -On fentanyl and propofol for sedation -Daily spontaneous breathing trials -Minimize tidal volume, minimize FiO2 -Plan on extubation later on today #Sepsis secondary to possible wound infection/possible pneumonia/ Possible N.F On minimal Levophed Wound cultures negative to date Blood culture: NTD Sputum culture:GNR CT chest:Patchy bilateral largely dependent left greater than right airspace infiltrates. Procalcitonin:0.77 Initially on Vanco and meropenem. Has been switched to Vanco and Zosyn. Possible requirement of long-term IV antibiotics due to wound dehiscence # Wound dehiscence with possible underlying infection: Follow blood culture so far unremarkable Follow wound culture: So far unremarkable ESR : CRP: 186 Procalcitonin:0.77 Currently the plan is to continue with broad-spectrum IV antibiotics Antibiotic as above Orthopedic on board. #CT suggestive of possible necrotizing fasciitis: Cannot conclusively rule out post op complication. Plan as above #Heart failure: Follow 2D echo Currently compensated Monitor intake output charting 1 dose Lasix today #COPD: DuoNebs Supplemental oxygen as needed #History of coronary artery disease status post stent: #Diabetes: Sliding scale insulin Monitor fingerstick glucose #Acute encephalopathy: Acute encephalopathy : Cannot completely rule out CRITICAL CARE PARAMEDIC involvement: Currently patient is intubated sedated on mechanical ventilation. Antibiotics as above CODE STATUS: Full code DVT prophylaxis: Lovenox 40 MG subcu daily Attestations Medical Necessity Statement*: Patient requires hospitalization for acute respiratory failure, wound dehiscence, sepsis, critical care time spent over 35 minutes Coding Level of Care Code Acute Filter Press Tender for Chg Fwd Diagnoses Sepsis A41.9 Necrotizing fasciitis M72.6 CHF (congestive heart failure) I50.9 Acute encephalopathy G93.40 COPD (chronic obstructive pulmonary disease) J44.9 Diabetes E11.9 Status post cervical spinal fusion Z98.1 Hypertension I10
--- NOTE | 2021-08-29 17:30 | PC.NURSE ---
Pt extubated Pt extubated per doctor's order with the help of RT and nursing staff. Pt placed on 2L NC. Pt eating bits of ice and alert and oriented.
--- NOTE | 2021-08-29 17:38 | PC.RESP ---
pt extubated and placed on 3lpm nc tolerated well
--- NOTE | 2021-08-29 18:34 | PC.NURSE ---
Shift Note Frequent safety and comfort rounds continue. Orders and nursing care completed as indicated. Patient remains on ventilator Mode:VC-AC FiO2:30% Peep:5 RR:14 VT:500. Oral care and position changes completed every two hours with help of other nursing staff.Levophed turn off this afternoon, see oct. Pt extubated today at 1730 with Ga Bower RN and RT. Oxygen at 96% on 2L NC. Given ice chip by this nurse, pt noted to be coughing a little bit with them Pt educated patient on taking time to eat ice correctly. Holding off on ice chips at this time. Patient monitored for response to intervention and treatments. visited patient today and updated on plan of care and overnight status. Education provided includes new medications, frequent position changes, and oral care. call and updated on patient's current status post extubation, verbalized understanding understanding. Will continue to monitor.
[2021-08-30] VITALS (29 sets, daily range): BP systolic 109–143; BP diastolic 66–80; PULSE 78–123; RESP 9–35; TEMP 36.6–37.2; O2SAT 95–98
[2021-08-30] MEDS: piperacillin-tazobactam 3.375 GM in sodium chloride 0.9% (plus) 50 ML IV ×3 (02:47→18:14)
[2021-08-30] MEDS: ipratropium-albuterol 3 mL Neb INHALATION (02:59)
[2021-08-30 04:05] LABS: ABG PCO2 33.3 mmHg (35-45); Arterial Blood Gas Hematocrit 37.3 % (42-52); Base Excess ABG -3.7 mmol/L (-2.0-2.0); Blood Gas Allen Test Pos; Blood Gas Sample Site Radial, left; Blood Gas Sample Type Arterial; HCO3 ABG 20.4 mmol/L (22-26); Oxygen Device NC; PO2 ABG 93.1 mmHg (80.0-100.0)
[2021-08-30] MEDS: vancomycin 1,000 MG in sodium chloride 0.9% 250 ML 250 MG IV (05:19)
[2021-08-30] MEDS: enoxaparin 40 mg/0.4 mL Syringe SUBCUT (05:20)
--- NOTE | 2021-08-30 07:00 | XRR_ITS ---
PROCEDURE INFORMATION: Exam: XR Chest Exam date and time: 08/30/2021 7:00 AM Age: 65 years old Clinical indication: Dyspnea; Additional info: SOB TECHNIQUE: Imaging protocol: XR of the chest. Views: 1 view. Total images: 1 COMPARISON: CR XR chest 1V portable [id number] 08/25/2021 5:03 PM FINDINGS: Tubes, catheters and devices: There has been interval removal of the enteric tube. Lungs: Nonspecific left lung base opacity favors atelectasis or pneumonia. Pleural spaces: Unremarkable. No pleural effusion. No pneumothorax. Heart/Mediastinum: Heart size is stable when compared to the prior exam. Vasculature: Atherosclerosis is evident. Bones/joints: Spinal fusion hardware noted. Osseous structures are unchanged from the prior exam. XR/XR chest 1V portable [id number] IMPRESSION: Nonspecific left lung base opacity favors atelectasis or pneumonia. This is slightly increased since the prior exam.
[2021-08-30 07:41] LABS: Basophils # 0.2 10^3/uL (0.0-0.1); Basophils % 1.2 %; Eosinophils # 0.2 10^3/uL (0.0-0.8); Hematocrit 35.2 % (42.0-52.0); Hemoglobin 11.3 g/dL (11.7-16.6); Lymphocytes # 0.9 10^3/uL (0.8-4.8); Lymphocytes % 5.9 %; Mean Corpuscular HGB Conc 32.1 g/dL (30.0-36.0); Mean Corpuscular Hemoglobin 34.2 pg (28.0-34.0); Mean Corpuscular Volume 106.7 fl (80-94); Mean Platelet Volume 11.3 fL (7.4-10.4); Monocytes % 6.2 %; Neutrophils # 12.98 10^3/uL (1.8-7.7); Neutrophils % 84.9 %; Nucleated Red Blood Cells % 0 %; Platelet Count 365 10^3/cmm (130-400); Red Cell Distribution Width 14.7 % (12.1-15.1); White Blood Count 15.3 10^3/uL (4.0-10.0)
[2021-08-30 07:57] LABS: Lactate (Lactic Acid level) 1.1 mmol/L (0.5-2.2)
[2021-08-30 08:02] LABS: Anion Gap 21.4 (5-19); Blood Urea Nitrogen 14 mg/dL (8-23); C Reactive Protein 154.8 mg/L (0.0-4.9); Calcium 8.5 mg/dL (8.5-10.5); Carbon Dioxide 18 mmol/L (22-29); Chloride 109 mmol/L (98-107); Glomerular Filtration Rate 135.2 mL/min (90-130); Glucose 140 mg/dL (65-115); Magnesium 2.2 mg/dL (1.7-2.3); Osmolality Calculated 303 mOsm/kg (285-295); Phosphorus 2.9 mg/dL (2.5-4.5); Potassium 3.4 mmol/L (3.5-5.1); Sodium 145 mmol/L (136-145)
[2021-08-30 08:10] LABS: NT Pro B Type Natriuretic Pept 974 pg/mL (0-125); Procalcitonin 0.25 ng/mL (0-0.5)
--- NOTE | 2021-08-30 08:27 | PM.PN ---
Subjective Subjective: Interval history: POD 4 Patient has been extubated and sitting up in right in his bed. He denies any headaches. He is demanding to go home. He reports better sensation in his fingertips and is moving both upper extremities and lower extremities with some slight weakness more on the right than the left. He denies any swallowing difficulties. Denies any headaches. He repeatedly is demanding to go home. Vitals/I&O/Wt Last Vital Signs Temp 98.9 F 08/30/21 04:00 Pulse 98 08/30/21 07:39 Resp 20 H 08/30/21 07:39 BP 137/80 08/30/21 05:00 Pulse Ox 96 08/30/21 07:39 08/29/21 08/30/21 08/30/21 22:59 06:59 14:59 Intake Total 554.584 / 1122.513 250 / 1372.513 Output Total 2100 / 4300 Balance -1545.416 / -3177.487 250 / -2927.487 Weight last 48 hrs Weight 208 lb 4.8 oz Weight 217 lb Physical Exam Narrative: EXAM NARRATIVE: Patient is alert and oriented x3 with a good general appearance normal normal affect. Patient is repeatedly demanding to go home. nontender with palpation about the incisional site. Incision appears with mild bloody drainage on the Silverlon dressing. Small hematoma at the base of the incision. No signs of infection. Good motor strength throughout both upper extremities. Appears to fire in all motor groups with 4/5 strength. Hands are warm good cap refill in all digits. Normal sensation to light touch in all dermatomal areas. Urinary Catheter Management^: 2-way Urethral: Cath Placed During This Visit: yes Reason for Continuing Indwelling Catheter: Accurate Measurement of Urinary Output in Critically Ill Patients Urinary Catheter Date of Insertion: 08/25/21 Urinary Catheter Time of Insertion: 19:47 Data : 08/30/21 07:23 08/30/21 07:23 Micro: Microbiology 08/26/21 09:31 Gram Stain - Final Neck Anaerobic Culture - Preliminary Abscess Culture - Final 08/25/21 17:20 Gram Stain - Preliminary Sputum - Endotracheal Tube Aspirate Sputum Culture - Final Bordetella bronchiseptica A&P Assessment and plan (1) Status post cervical spinal fusion: I have the nurses change his Silverlon dressing. Continue [place] J collar. Physical therapy to work with mobilizing. surgical services assistant consult for placement. Okay from Ortho standpoint to transfer to the floor. 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
[2021-08-30] MEDS: potassium chloride ER 20 mEq Tablet 40 MEQ PO (11:18)
[2021-08-30] MEDS: insulin lispro 100 unit/1 mL SUBCUT (11:35)
--- NOTE | 2021-08-30 12:13 | PC.SOCIAL ---
IMM update IMM updated with patient and at bedside. Copy Pg 2 provided. Verbalized an understanding. Initialled, dated, timed, and placed in chart.
--- NOTE | 2021-08-30 14:16 | PM.PN ---
Subjective Subjective: Interval history: Patient was successfully extubated yesterday to 3 L, alert oriented x3, following commands Patient was seen this morning, currently on 3 L, denying any shortness of breath, no lightheaded, dizziness, nausea, vomiting, the first thing the patient says to me when I entered the room is let me go home -I was very clear with patient that he has a significant surgical site dehiscence, requiring surgical intervention, requiring IV antibiotics -He had acute respiratory failure requiring ventilator, he was extubated yesterday, remains on 3 L, but I continue to be concerned for aspiration, we have to have speech therapy evaluate him -He has significant deconditioning, requires PT OT eval -Patient's significant deconditioning has protein calorie malnutrition -Advised patient that leaving the hospital early or AGAINST MEDICAL ADVICE carries significant risk of morbidity and mortality -Advised patient that it would be in his best interest to follow-up our recommendations, participate with physical therapy -I have strongly advised for him to consider group home placement or at least home health care as after my discussion with patient's yesterday, she tells me that he can ambulate a few feet, and she is only want to help him at home -Advised him that I am very concerned for his high risk of continued falls, complications, and morbidity and mortality associated -He voiced understanding, all questions answered, tells me he still wants to go home, but is willing to stay in the hospital for another night -I made it very clear to patient that I will discharge him home when the team feels he is safe to go home, and is medically stable, and currently he is not, and if he wants to leave he will have to leave AGAINST MEDICAL ADVICE Vitals/I&O/Wt Last Vital Signs Temp 97.9 F 08/30/21 12:00 Pulse 98 08/30/21 14:00 Resp 20 H 08/30/21 14:00 BP 109/78 08/30/21 14:00 Pulse Ox 96 08/30/21 14:00 08/29/21 08/30/21 08/30/21 22:59 06:59 14:59 Intake Total 554.584 / 1122.513 300 / 1422.513 60 / 60 Output Total 2100 / 4300 Balance -1545.416 / -3177.487 300 / -2877.487 60 / 60 Weight last 48 hrs Weight 94.483 kg Weight 98.43 kg Physical Exam Narrative: EXAM NARRATIVE: Surgical site examined, surgical site looks clean and dry, posterior neck, sutures in place, clean and dry, Const: COMMON NORMALS: patient oriented x3 GENERAL APPEARANCE: frail appearing Neck/C-Spine: OTHER: Currently in a cervical collar Resp: COMMON NORMALS: normal respiratory effort, No retractions, No use of accessory muscles and clear to auscultation bilaterally AUSCULTATION: clear to auscultation bilaterally Cardio: COMMON NORMALS: regular rate, regular rhythm, S1 normal heart sound present and S2 normal heart sound present RATE: regular rate RHYTHM: regular rhythm HEART SOUNDS: S1 normal heart sound present and S2 normal heart sound present GI: COMMON NORMALS: Normal to inspection, nondistended, normoactive bowel sounds present, Soft to palpation and non-tender PALPATION: Yes Soft to palpation Extremity: COMMON NORMALS: no pedal edema NARRATIVE EXTREMITY EXAM: 1+ pitting edema bilaterally, with generalized anasarca Neuro: COMMON NORMALS: patient oriented x3 Urinary Catheter Management^: 2-way Urethral: Cath Placed During This Visit: yes Reason for Continuing Indwelling Catheter: Accurate Measurement of Urinary Output in Critically Ill Patients Urinary Catheter Date of Insertion: 08/25/21 Urinary Catheter Time of Insertion: 19:47 Data : 08/30/21 07:23 08/30/21 07:23 Micro: Microbiology 08/25/21 14:01 Blood Culture - Final Blood NO GROWTH AFTER 5 DAYS 08/25/21 13:38 Blood Culture - Final Blood NO GROWTH AFTER 5 DAYS 08/26/21 09:31 Gram Stain - Final Neck Anaerobic Culture - Preliminary Abscess Culture - Final 08/25/21 17:20 Gram Stain - Preliminary Sputum - Endotracheal Tube Aspirate Sputum Culture - Final Bordetella bronchiseptica A&P Assessment and plan (1) Sepsis: Status: Acute (2) Necrotizing fasciitis: Status: Acute (3) CHF (congestive heart failure): Status: Acute (4) Acute encephalopathy: Status: Acute (5) COPD (chronic obstructive pulmonary disease): Status: Acute (6) Diabetes: Status: Acute (7) Status post cervical spinal fusion: Status: Acute (8) Hypertension: Status: Acute Additional A&P Information 65 year old male with PMH of CAD S/P Stent, HTN, DM, COPD , CHF , recent l C2-T2 Posterior spine fusion on 08/22 came in today with c/o headache as well as neck pain and stiffness after he left AMA on 08/22. Acute respiratory failure -Successfully extubated on to 3 L 08/30/2021 -We will keep n.p.o. until he has a formal speech therapy evaluation -We will moved to general medical floors #Sepsis secondary to possible wound infection/possible pneumonia/ Possible N.F On minimal Levophed Wound cultures negative to date Blood culture: NTD Sputum culture:GNR CT chest:Patchy bilateral largely dependent left greater than right airspace infiltrates. Procalcitonin:0.77 Initially on Vanco and meropenem. Has been switched to Vanco and Zosyn. Possible requirement of long-term IV antibiotics due to wound dehiscence, concerns for necrotizing fasciitis, following cultures, following clinical progress # Wound dehiscence with possible underlying infection: Follow blood culture so far unremarkable Follow wound culture: So far unremarkable CRP: 186 Procalcitonin:0.77 Currently the plan is to continue with broad-spectrum IV antibiotics Antibiotic as above Orthopedic on board. #CT suggestive of possible necrotizing fasciitis: Cannot conclusively rule out post op complication. 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 Antibiotics as above CODE STATUS: Full code DVT prophylaxis: Lovenox 40 MG subcu daily Attestations Medical Necessity Statement*: Patient requires hospitalization for acute respiratory failure, surgical site dehiscence, concerns for infection, moving to general medical floors Coding Level of Care Code Acute Programs Assistant for [facility] Fwd Diagnoses Sepsis A41.9 Necrotizing fasciitis M72.6 CHF (congestive heart failure) I50.9 Acute encephalopathy G93.40 COPD (chronic obstructive pulmonary disease) J44.9 Diabetes E11.9 Status post cervical spinal fusion Z98.1 Hypertension I10
[2021-08-30 14:28] LABS: Vancomycin Trough 27.4 ug/mL (10-15)
--- NOTE | 2021-08-30 15:36 | PC.NURSE ---
1530 Removed rodriguez catheter with no difficulties. 1100ml urine emptied. Urinal at bedside for further needs to void.
--- NOTE | 2021-08-30 17:01 | PC.NURSE ---
1650 Transfered patient via wheelchair to 250-2. No belongings in room or transfered. I called to notify of room change, got her voice mail. I left a voice message saying I had moved him to 25-2 and doing well and she may call him. Placed patient in bed with call light in hand, nurses business development assistant assisted us in getting him into bed. Chart given to desk.
[2021-08-30 17:12] LABS: Glucose Point of Care 130 mg/dL (70-110)
[2021-08-30] MEDS: methIMAzole 5 MG Tablet 2.5 MG PO (18:14)
--- NOTE | 2021-08-30 20:02 | PC.NURSE ---
Shift report received from Denisha BAIRES. Patient in bed awake watching TV. Declines PRN pain medication at this time. C collar/heel protectors in place. No needs voiced at this time.
--- NOTE | 2021-08-30 20:41 | PC.NURSE ---
Bed changed at this time.
[2021-08-31] VITALS (7 sets, daily range): BP systolic 124–155; BP diastolic 76–78; PULSE 83–90; RESP 16–18; TEMP 37.1; O2SAT 92–95
--- NOTE | 2021-08-31 00:03 | PC.NURSE ---
Patient stated that if we did not put him on floor he was leaving AMA Charge nurse Karlene notified. Education provided to patient that we could not put him on the floor. Incontinence change and repositioned at this time. No needs voiced at this time.
[2021-08-31] MEDS: vancomycin 750 MG in sodium chloride 0.9% 250 ML 250 MG IV (01:16)
[2021-08-31] MEDS: piperacillin-tazobactam 3.375 GM in sodium chloride 0.9% (plus) 50 ML IV (02:30)
--- NOTE | 2021-08-31 04:01 | PC.NURSE ---
Bed/gown changed due to incontinence at this time.
[2021-08-31] MEDS: enoxaparin 40 mg/0.4 mL Syringe SUBCUT (05:42)
--- NOTE | 2021-08-31 06:19 | PC.NURSE ---
Bed linen changed at this time due to bowel incontinence.
[2021-08-31 06:40] LABS: Basophils # 0.2 10^3/uL (0.0-0.1); Basophils % 1.3 %; Eosinophils # 0.3 10^3/uL (0.0-0.8); Eosinophils % 2.1 %; Hematocrit 35.9 % (42.0-52.0); Hemoglobin 11.5 g/dL (11.7-16.6); Lymphocytes # 1.1 10^3/uL (0.8-4.8); Lymphocytes % 7.9 %; Mean Corpuscular Hemoglobin 33.5 pg (28.0-34.0); Mean Corpuscular Volume 104.7 fl (80-94); Mean Platelet Volume 11.7 fL (7.4-10.4); Monocytes # 1.1 10^3/uL (0.2-0.9); Monocytes % 7.3 %; Neutrophils # 11.58 10^3/uL (1.8-7.7); Neutrophils % 80.6 %; Nucleated Red Blood Cells % 0 %; Platelet Count 401 10^3/cmm (130-400); Red Blood Count 3.43 10^6/uL (4.1-5.3); Red Cell Distribution Width 14.4 % (12.1-15.1); White Blood Count 14.4 10^3/uL (4.0-10.0)
[2021-08-31 07:11] LABS: NT Pro B Type Natriuretic Pept 1663 pg/mL (0-125); Procalcitonin 0.19 ng/mL (0-0.5)
[2021-08-31 07:23] LABS: Anion Gap 23.1 (5-19); Blood Urea Nitrogen 11 mg/dL (8-23); C Reactive Protein 112.2 mg/L (0.0-4.9); Calcium 8.5 mg/dL (8.5-10.5); Carbon Dioxide 15 mmol/L (22-29); Chloride 108 mmol/L (98-107); Glomerular Filtration Rate 113.2 mL/min (90-130); Glucose 178 mg/dL (65-115); Osmolality Calculated 300 mOsm/kg (285-295); Potassium 3.1 mmol/L (3.5-5.1); Sodium 143 mmol/L (136-145)
[2021-08-31 08:10] LABS: Glucose Point of Care 202 mg/dL (70-110)
--- NOTE | 2021-08-31 08:27 | PM.PN ---
Subjective Subjective: Interval history: Patient resting comfortably. [place] J collar currently on. No complaints of headaches, chest pain, shortness of breath. Patient reports improvement of arm pains. Vitals/I&O/Wt Last Vital Signs Temp 98.7 F 08/31/21 04:00 Pulse 90 08/31/21 07:53 Resp 18 08/31/21 07:53 BP 155/76 08/31/21 07:12 Pulse Ox 92 08/31/21 07:53 08/30/21 08/31/21 08/31/21 22:59 06:59 14:59 Intake Total 50 / 160 Output Total 1100 / 1100 Balance -1050 / -940 Weight last 48 hrs Weight 208 lb 4.8 oz Physical Exam Narrative: EXAM NARRATIVE: He is alert in no obvious dressing was changed some slight serous drainage from the middle part of the incision. Otherwise wound appears to be healing nicely. Moves all extremities. Urinary Catheter Management^: 2-way Urethral: Cath Placed During This Visit: yes, but has since been removed by the nurse Reason for Continuing Indwelling Catheter: Accurate Measurement of Urinary Output in Critically Ill Patients Urinary Catheter Date of Insertion: 08/25/21 Urinary Catheter Time of Insertion: 19:47 Date Urinary Catheter Removed: 08/30/21 Time Urinary Catheter Discontinued: 15:30 Data : 08/31/21 04:17 08/31/21 04:17 Micro: Microbiology 08/26/21 09:31 Gram Stain - Final Neck Anaerobic Culture - Preliminary Abscess Culture - Final 08/25/21 14:01 Blood Culture - Final Blood NO GROWTH AFTER 5 DAYS 08/25/21 13:38 Blood Culture - Final Blood NO GROWTH AFTER 5 DAYS A&P Assessment and plan (1) Status post cervical spinal fusion: Dressing change was performed with nurse present. Instructed her to reinforce as needed and change dressing as needed. Continue to work with physical therapy for mobilization. 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
[2021-08-31] MEDS: polyethylene glycol 3350 Pkt 17 gm PO (08:35)
[2021-08-31] MEDS: atorvastatin 40 mg Tablet 80 MG PO (08:35)
[2021-08-31] MEDS: docusate sodium 100 mg Capsule PO (08:35)
[2021-08-31] MEDS: methIMAzole 5 MG Tablet 2.5 MG PO (08:36)
[2021-08-31] MEDS: tamsulosin 0.4 mg Capsule PO (08:37)
[2021-08-31] MEDS: insulin lispro 100 unit/1 mL SUBCUT (08:37)
[2021-08-31 10:36] LABS: Glucose Point of Care 153 mg/dL (70-110)
[2021-08-31 10:36] LABS: Glucose Point of Care 161 mg/dL (70-110)
[2021-08-31 10:36] LABS: Glucose Point of Care 151 mg/dL (70-110)
[2021-08-31 10:36] LABS: Glucose Point of Care 143 mg/dL (70-110)
[2021-08-31 10:37] LABS: Glucose Point of Care 175 mg/dL (70-110)
[2021-08-31 10:37] LABS: Glucose Point of Care 138 mg/dL (70-110)
[2021-08-31 10:37] LABS: Glucose Point of Care 165 mg/dL (70-110)
--- NOTE | 2021-08-31 10:43 | PC.NURSE ---
patient stated he is leaving AMA. Fatoumata [phone] notified.
--- NOTE | 2021-08-31 10:48 | PC.NURSE ---
Notified by Dr. Recinos patient wants to leave AMA. Patient signed AMA paper work. This nurse tried to talk him into staying
--- NOTE | 2021-08-31 10:54 | PC.NURSE ---
notified Gaurang Lara that is requesting a call. she stated she can not take care of patient and patient is leaving [place]. her number is [phone].
--- NOTE | 2021-08-31 11:30 | PC.NURSE ---
patient taken to private vehicle via wheelchair by board writer. patient assisted into vehicle by staff.
--- NOTE | 2021-08-31 14:28 | PM.DCS ---
Discharge Providers Date of Admission: 08/25/21 15:19 Date of Discharge: August 31, 2021 Attending Provider at Admission: Geo Lerner MD Attending Provider at Discharge: Fred Recinos MD Primary Care Provider: Rehan Clarke MD Diagnoses at Discharge Discharge Diagnosis (1) Status post cervical spinal fusion: Status: Acute Reason for Visit Reason for Visit: PAIN ALL OVER Hospital Course Hospital Course 65 year old male with PMH of CAD S/P Stent, HTN, DM, COPD , CHF , recent l C2-T2 Posterior spine fusion on 08/22 came in today with c/o headache as well as neck pain and stiffness after he left AMA on 08/22. Patient was admitted to [facility] for wound dehiscence with possible underlying infection of C2-T2 posterior spine fusion, due to rapidly worsening mentation and impending respiratory failure was intubated in the emergency room, patient underwent surgical evacuation of postoperative hematoma, so far all his surgical blood cultures were unremarkable, sputum cultures were positive for Bordetella bronchiseptica, he was extubated to room air, moved to the general medical floors. Due to weakness, deconditioning, history of recurrent falls, it was recommended for patient to go to long-term he refused. Discussed my concerns of recurrent falls, deconditioning, worsening surgical outcome, complications related to falls, morbidity and mortality associated he voiced understanding, all questions answered, declined long-term placement, declined further hospitalization. Due to concerns for underlying deep tissue infection, I recommended continued IV antibiotic therapy patient refused. Discussed risks of deep tissue infection, sepsis, vertebral osteomyelitis, discitis, abscess, CLOTH FEEDER infection, he voiced understanding, all questions answered refused. I discussed outpatient antibiotics, oral antibiotics, he agreed to be compliant with outpatient antibiotics. I recommend patient to continue to get rehab here in the hospital, continue to monitor surgical site, continue monitor cultures, get IV antibiotics, optimize his heart failure. Discussed morbidity and mortality associated with leaving the hospital early, and AGAINST MEDICAL ADVICE, he voiced onychomycosis answered, left AGAINST MEDICAL ADVICE. I discharged him on 7 days of Doxy and ciprofloxacin. Follow-up with orthopedic service in 1 week. If he were to have fevers, neck pain, headache, blurry vision go to emergency room. Patient was advised to monitor his blood sugars 3 times a day, if blood sugars greater than 500 or less than 60 go to the emergency room, advised him that optimal blood sugar management will carry the best surgical outcome. Patient left AGAINST MEDICAL ADVICE Acute respiratory failure -Successfully extubated on to 3 L 08/30/2021 -We will keep n.p.o. until he has a formal speech therapy evaluation -We will moved to general medical floors #Sepsis secondary to possible wound infection/possible pneumonia/ Possible N.F On minimal Levophed Wound cultures negative to date Blood culture: NTD Sputum culture:GNR CT chest:Patchy bilateral largely dependent left greater than right airspace infiltrates. Procalcitonin:0.77 Initially on Vanco and meropenem. Has been switched to Vanco and Zosyn. Possible requirement of long-term IV antibiotics due to wound dehiscence, concerns for necrotizing fasciitis, following cultures, following clinical progress # Wound dehiscence with possible underlying infection: Follow blood culture so far unremarkable Follow wound culture: So far unremarkable CRP: 186 Procalcitonin:0.77 Currently the plan is to continue with broad-spectrum IV antibiotics Antibiotic as above Orthopedic on board. #CT suggestive of possible necrotizing fasciitis: Cannot conclusively rule out post op complication. Plan as above #Heart failure: Follow 2D echo Currently compensated Monitor intake output charting 2 doses of Lasix yesterday, -4 L Hold Lasix today #COPD: DuoNebs Supplemental oxygen as needed #History of coronary artery disease status post stent: #Diabetes: Sliding scale insulin Monitor fingerstick glucose #Acute encephalopathy: Acute encephalopathy : Cannot completely rule out CLOTH FEEDER involvement: Currently patient is intubated sedated on mechanical ventilation. Antibiotics as above Physical Exam Narrative: EXAM NARRATIVE: Patient is agitated, wanting to leave AGAINST MEDICAL ADVICE, in a cervical collar Resp: COMMON NORMALS: normal respiratory effort, No retractions and clear to auscultation bilaterally AUSCULTATION: clear to auscultation bilaterally Cardio: COMMON NORMALS: regular rate, regular rhythm, S1 normal heart sound present and S2 normal heart sound present RATE: regular rate RHYTHM: regular rhythm HEART SOUNDS: S1 normal heart sound present and S2 normal heart sound present GI: COMMON NORMALS: Normal to inspection, nondistended, normoactive bowel sounds present, Soft to palpation and non-tender PALPATION: Yes Soft to palpation Extremity: COMMON NORMALS: no pedal edema Urinary Catheter Management^: 2-way Urethral: Cath Placed During This Visit: yes, but has since been removed by the nurse Reason for Continuing Indwelling Catheter: Accurate Measurement of Urinary Output in Critically Ill Patients Urinary Catheter Date of Insertion: 08/25/21 Urinary Catheter Time of Insertion: 19:47 Date Urinary Catheter Removed: 08/30/21 Time Urinary Catheter Discontinued: 15:30 Discharge Data Data Completed and Pending: Completed Studies During Hospitalization Category Date Time Status CT angio chest PE protcl [id number] Urge nt Cat Scan 08/25/21 17:[address] head wo con* 7 0450 Urgent Cat Scan 08/25/21 17:[address] neck w con* 70 491 Urgent Cat Scan 08/25/21 13:40 Completed XR abdomen 1V* 74 018 Routine Exams 08/25/21 20:54 Completed XR chest 1V viv ble [id number] Routine Exams 08/25/21 Completed XR chest 1V viv ble [id number] Routine Exams 08/30/21 07:00 Completed CV. echo complete * [id number] Routine Ultrasound 08/28/21 10:54 Completed Pending at discharge Category Date Time Status Abscess Culture a nd Gram Stain Rout ine Lab 08/26/21 09:31 Results Anaerobic Culture Routine Lab 08/26/21 09:31 Results Sputum Culture an d Gram Stain Stat Lab 08/25/21 17:20 Results Labs from last 24 hours 08/31/21 08/31/21 08/31/21 07:57 04:17 04:17 WBC 14.4 H RBC 3.43 L Hgb 11.5 L Hct 35.9 L MCV 104.7 H MCH 33.5 MCHC 32.0 RDW 14.4 Plt Count 401 H MPV 11.7 H Neut % (Auto) 80.6 Lymph % (Auto) 7.9 Stewart % (Auto) 7.3 Eos % (Auto) 2.1 Baso % (Auto) 1.3 Neut # (Auto) 11.58 H Lymph # (Auto) 1.1 Stewart # (Auto) 1.1 H Eos # (Auto) 0.3 Baso # (Auto) 0.2 H Nucleated RBC % (a uto) 0 Nucleated RBCs # 0.0 Sodium 143 Potassium 3.1 L Chloride 108 H Carbon Dioxide 15 L Anion Gap 23.1 H BUN 11 Creatinine 0.7 GFR Calculation 113.2 Glucose 178 H POC Glucose 202 H Calculated Osmolal ity 300 H Calcium 8.5 Phosphorus 2.0 L Magnesium 2.0 C-Reactive Protein 112.2 H NT-Pro-B Natriuret Pep 1663 H Procalcitonin 0.19 Vancomycin Trough 08/30/21 08/30/21 08/30/21 16:58 13:22 11:30 WBC RBC Hgb Hct MCV MCH MCHC RDW Plt Count MPV Neut % (Auto) Lymph % (Auto) Stewart % (Auto) Eos % (Auto) Baso % (Auto) Neut # (Auto) Lymph # (Auto) Stewart # (Auto) Eos # (Auto) Baso # (Auto) Nucleated RBC % (a uto) Nucleated RBCs # Sodium Potassium Chloride Carbon Dioxide Anion Gap BUN Creatinine GFR Calculation Glucose POC Glucose 130 H 143 H Calculated Osmolal ity Calcium Phosphorus Magnesium C-Reactive Protein NT-Pro-B Natriuret Pep Procalcitonin Vancomycin Trough 27.4 H* 08/30/21 08/29/21 08/29/21 08:13 20:09 18:16 WBC RBC Hgb Hct MCV MCH MCHC RDW Plt Count MPV Neut % (Auto) Lymph % (Auto) Stewart % (Auto) Eos % (Auto) Baso % (Auto) Neut # (Auto) Lymph # (Auto) Stewart # (Auto) Eos # (Auto) Baso # (Auto) Nucleated RBC % (a uto) Nucleated RBCs # Sodium Potassium Chloride Carbon Dioxide Anion Gap BUN Creatinine GFR Calculation Glucose POC Glucose 138 H 175 H 161 H Calculated Osmolal ity Calcium Phosphorus Magnesium C-Reactive Protein NT-Pro-B Natriuret Pep Procalcitonin Vancomycin Trough 08/29/21 08/29/21 08/28/21 13:25 07:54 20:57 WBC RBC Hgb Hct MCV MCH MCHC RDW Plt Count MPV Neut % (Auto) Lymph % (Auto) Stewart % (Auto) Eos % (Auto) Baso % (Auto) Neut # (Auto) Lymph # (Auto) Stewart # (Auto) Eos # (Auto) Baso # (Auto) Nucleated RBC % (a uto) Nucleated RBCs # Sodium Potassium Chloride Carbon Dioxide Anion Gap BUN Creatinine GFR Calculation Glucose POC Glucose 165 H 153 H 151 H Calculated Osmolal ity Calcium Phosphorus Magnesium C-Reactive Protein NT-Pro-B Natriuret Pep Procalcitonin Vancomycin Trough Vitals: Last Vital Signs Temp 98.7 F 08/31/21 04:00 Pulse 90 08/31/21 11:31 Resp 18 08/31/21 11:31 BP 155/76 08/31/21 11:31 Pulse Ox 92 08/31/21 11:31 Discharge Plan Discharge Patient Disposition: Left Against Medical Advice Condition: Stable Prescriptions: New Cipro 500 mg tablet 500 mg PO BID 7 Days Qty: 14 RF: 0 doxycycline hyclate 100 mg tablet 100 mg PO BID 7 Days Qty: 14 RF: 0 No Action tramadol 50 mg tablet 100 mg PO TID PRN (Reason: Pain) RF: 0 Stiolto Respimat 2.5-2.5 mcg/actuation mist 2 puff INHALATION DAILY PRN (Reason: PTS STATES THE PT HASNT USED IN MONTHS) RF: 0 aspirin [Adult Low Dose Aspirin] 81 mg tablet,delayed release (DR/EC) 81 mg PO DAILY RF: 0 Hold Instructions: Resume on 01/06/20. docusate sodium [Colace] 100 mg capsule 200 mg PO BID RF: 0 rosuvastatin [Crestor] 40 mg tablet 40 mg PO DAILY RF: 0 Jardiance 25 mg tablet 25 mg PO DAILY RF: 0 metformin 1,000 mg tablet 1,000 mg PO BID RF: 0 methimazole [Tapazole] 5 mg tablet 2.5 mg PO BID RF: 0 nitroglycerin [Nitrostat] 0.4 mg tablet, sublingual 0.4 mg SUBLINGUAL Q5M PRN (Reason: Chest Pain) RF: 0 albuterol sulfate [ProAir HFA] 90 mcg/actuation HFA aerosol inhaler 2 puff INHALATION Q6H PRN (Reason: Shortness Of Breath) RF: 0 tamsulosin 0.4 mg capsule 0.4 mg PO DAILY RF: 0 Combivent Respimat 20-100 mcg/actuation mist 1 puff INHALATION DAILY PRN (Reason: STATES PT NOT USED IN MONTHS LAST FILLED 09/09) RF: 0 Humira Pen 40 mg/0.8 mL pen injector kit 40 mg SUBCUT Q14D Qty: 2 RF: 0 gabapentin 400 mg capsule 400 mg PO TID RF: 0 gabapentin 800 mg tablet 800 mg PO TID RF: 0 Novolin N NPH U-100 Insulin 100 unit/mL suspension See Rx Instructions .ROUTE .COMPLEX RF: 0 ergocalciferol (vitamin D2) 1,250 mcg (50,000 unit) capsule 50,000 unit PO Q7D RF: 0 Novolog Flexpen U-100 Insulin 100 unit/mL (3 mL) Insulin Pen See Rx Instructions .ROUTE .COMPLEX RF: 0 prednisone 10 mg Tablet 10 mg PO . DIRECTED PRN (Reason: ARTHRITIS FLARE UPS) RF: 0 leflunomide 20 mg tablet 20 mg PO DAILY RF: 0 pantoprazole 40 mg tablet,delayed release (DR/EC) 40 mg PO DAILY RF: 0 Victoza 3-Karl 0.6 mg/0.1 mL (18 mg/3 mL) pen injector 1.8 mg SUBCUT DAILY RF: 0 cyanocobalamin (vitamin B-12) 1,000 mcg/mL solution 1,000 mcg SUBCUT Q30D RF: 0 Referrals: Rehan Clarke MD [Primary Care Provider] - Patient Instructions: Opioid Safety Activity Restrictions/Additional Instructions: Thank you for choosing [facility] for your care! The following is a list of instructions, from your provider, to follow upon your discharge to ensure you have the optimal recovery from your recent injury or surgery. posterior cervical fusion: What to Expect at Home Your Recovery Follow-up care is a renteria part of your treatment and safety. Be sure to make and go to all appointments, and call your doctor if you are having problems. If you do not already have a follow-up appointment made, call office in the next 1-3 days to make follow up appointment for 2 weeks at [phone]. It is also a good idea to know your test results and keep a list of the medicines you take. You can expect your neck to feel stiff or sore after surgery. This should improve in the weeks after surgery. But it may take 4 to 6 months for you to get better completely. You may have trouble sitting or standing in one position for very long and may need pain medicine in the weeks after your surgery. It may take 4 to 6 weeks to get back to your usual activities, but it may depend on what kind of surgery you had. Your throat will feel sore and it may be difficult to swallow for the first 3 days after your surgery. As long as you can get liquids down without difficulty, this should slowly improve, otherwise call our office or seek medical attention if it becomes increasingly difficult to get anything down including liquids. Avoid hot liquids for first 3-5 days. Soothing foods/liquids such as jello, pudding, and luke warm soups are recommended until swallowing improves. Staying elevated will also help, it's advised you keep propped up at while sleeping to help reduce the swelling. You may use an ice pack directly on your incision or around it on the front of your neck, using a cloth to protect your skin; and a heating pad to the back of your neck as needed. Do not use over the counter anti-inflammatory medications (Ibuprofen, Motrin, Aleve, Advil, etc) Taking these meds after having a fusion can delay fusion rates, we recommend you avoid them for the first 3 [address] after your surgery[address] Dr. Flores may advise you to work with a physical therapist to strengthen the muscles around your neck and back - this will be discussed at your follow - up appointments. The pain or numbness you were having in your arms before surgery should get better or go away completely. This care sheet gives you a general idea about how long it will take for you to recover. But each person recovers at a different pace. Follow the steps below to get better as quickly as possible. How can you care for yourself at home? Activity ? Rest when you feel tired. Getting enough sleep will help you recover. ? Try to walk each day. Start by walking a little more than you did the day before. Bit by bit, increase the amount you walk. Walking boosts blood flow and helps prevent pneumonia and constipation. Walking may also decrease your muscle soreness after surgery. ? No lifting anything that is more that 5 pounds. This may include heavy grocery bags and milk containers, a heavy briefcase or backpack, cat litter or dog food bags, a child, or a vacuum frame cleaner. ? Avoid strenuous activities, such as bicycle riding, jogging, weightlifting, or aerobic exercise, until your doctor says it is okay. ? Do not drive until your follow-up visit after your surgery, or until your doctor says it isokay. ? Avoid taking long car trips for 2 to 4 weeks after surgery. Your neck may become tired and painful from sitting too long in one position. ? You will probably need to take 4 to 6 weeks off from work. It depends on the type of work you do and how you feel. ? You may have sex as soon as you feel able, but avoid positions that put stress on your neck or cause pain. Diet ? You can eat your normal diet. If your stomach is upset, try bland, low-fat foods like plain rice, broiled chicken, toast, and yogurt ? Drink plenty of fluids. If you have kidney, heart, or liver disease and have to limit fluids, talk with your doctor before you increase the amount of fluids you drink. ? You may notice that your bowel movements are not regular right after your surgery. This is common. Try to avoid constipation and straining with bowel movements. You may want to take a fiber supplement every day. If you have not had a bowel movement after a couple of days, ask your doctor about taking a mild laxative. Medicines ? Take pain medicines exactly as directed. 1. If Dr. Flores gave you a prescription medicine for pain, take lt as prescribed. 2. Do not take two or more pain medicines at the same time unless the doctor told you to. Many pain medicines have acetaminophen, which is Tylenol. Too much acetaminophen {Tylenol) can be harmful. 3. If you think your pain pill is making you sick to your stomach: 4. Take your pills after meals (unless your doctor has told you not to). 5. Ask your Dr. for a different pain pill. Incisioncare ? Remove your dressing 48hours after your surgery. Ok to shower and get the incision wet. Do not overtly wash your incision. When done, pad dry, leave open to air thereafter. Avoid creams and ointments directly on your incision. ? Your sutures in the incision will dissolve and fall out on their own. ? Keep the area clean and dry. You may cover it with a gauze bandage if it weeps or rubs against clothing; if you choose to do this, change the dressing everyday. Other instructions ? Use a heating pad, hot water bottle, or gentle massage on your back to reduce stiffness. Avoid putting heat on your incision When should you call for help? ? Call 911 anytime you think you may need emergency care. For example, call if: ? You pass out (lose consciousness). ? You have sudden chest pain and shortness of breath, or you cough upblood. ? You cannot swallow. ? You have severe pain in your neck or back. ? Call your Dr. or seek immediate medical care if: ? You have pain that does not get better after you take pain pills. ? You have loose stitches, or your incision comes open. ? You have blood or fluid draining from the incision. ? You have signs of infection, such as: 1. Increased pain, swelling, warmth, or redness. 2. Red streaks leading from the site. 3. Pus draining from the site. 4. Swollen lymph nodes in your neck or armpits. 5. A fever. ? You have severe pain in your arms. ? You have new or increased weakness or numbness in your arms. ? Watch closely for any changes in your health, and be sure to contact your doctor if: ? You do not have a bowel movement after taking a laxative. Discharge Attestations Time Spent in Discharge Care*: less than 30 min Quality Metrics Clinical Quality Measures During this hospital stay, did patient experience: None Coding Level of Care Code Acute g DC note Diagnoses Status post cervical spinal fusion Z98.1
--- NOTE | 2021-08-31 16:08 | PC.NURSE ---
Called [facility] [phone], called in script for Doxycycline Hyclate and Cipro.
== END 2021-08-31 11:34 | disposition left against medical advice (07) | DRG 853 ==
LOC: ER 15:37 → ICU 17:43 → MEDSURG 08-30 17:27
PROVIDERS: Orthopaedic Surgery; Admitting Provider Internal Medicine; Emergency Provider Emergency Medicine; PCP Family Medicine; Visit Provider Family Medicine
PROC: 0JC70ZZ Extirpation of Matter from Back Subcutaneous Tissue and Fascia, Open Approach (ICD-10-PCS; principal; 2021-08-26 07:50)
DX: A41.9 Sepsis, unspecified organism (principal); J96.00 Acute respiratory failure, unspecified whether with hypoxia or hypercapnia; M72.6 Necrotizing fasciitis; J15.9 Unspecified bacterial pneumonia; M96.840 Postprocedural hematoma of a musculoskeletal structure following a musculoskeletal system procedure; G93.40 Encephalopathy, unspecified; E46 Unspecified protein-calorie malnutrition; T81.31XA Disruption of external operation (surgical) wound, not elsewhere classified, initial encounter; Z98.1 Arthrodesis status; I11.0 Hypertensive heart disease with heart failure; I50.9 Heart failure, unspecified; J44.9 Chronic obstructive pulmonary disease, unspecified; E11.9 Type 2 diabetes mellitus without complications; K21.9 Gastro-esophageal reflux disease without esophagitis; Z86.15 Personal history of latent tuberculosis infection; M05.9 Rheumatoid arthritis with rheumatoid factor, unspecified; M43.16 Spondylolisthesis, lumbar region; Z79.4 Long term (current) use of insulin; Z79.84 Long term (current) use of oral hypoglycemic drugs; Z79.82 Long term (current) use of aspirin; Z53.29 Procedure and treatment not carried out because of patient's decision for other reasons; Z68.27 Body mass index [BMI] 27.0-27.9, adult; I95.9 Hypotension, unspecified
CPT/HCPCS: 31500; 36415; 36416; 36592; 36600; 51702; 70450; 70491; 71045; 71275; 74018; 80048; 80051; 80053; 80202; 82330; 82803; 82805; 82962; 83605; 83735; 83880; 84100; 84145; 85025; 85730; 86140; 87040; 87070; 87075; 87077; 87086; 87186; 87205; 92610; 93005; 93306; 94002; 94003; 94640; 94799; 96365; 96366; 96367; 96372; 96375; 97110; 97162; 97165; 97530; 97760; 99291; 99292; A4570; J0690; J0692; J1650; J1815; J1940; J2060; J2185; J2250; J2270; J2370; J2543; J2704; J3010; J3370; J3480; J3490; J7030; J7040; J7050; L0174; Q9967

== ENCOUNTER 2021-09-05 12:58 | Emergency (ER) | payer MEDICARE, MEDICAID, SELFPAY ==
[2021-09-05 13:19] VITALS: BP 125/67; PULSE 102; RESP 18; O2SAT 92; BMI 28.2
--- NOTE | 2021-09-05 13:19 | ED_ITS ---
HPI - SOB/Dyspnea General: Chief Complaint: Shortness of Breath/Dyspnea Stated Complaint: SOB Time Seen by Provider: 09/05/21 13:19 History of Present Illness: HPI Narrative: 66 yo male presents emergency room complaining of shortness of breath. He has had it for the last couple of weeks. He has had a mild cough but he states been nonproductive he is not had a fever has not noticed anything that exacerbates or relieves it beyond rest.Patient had neck surgery earlier this month after being admitted for acute encephalopathy secondary necrotizing fascitis. PRior to that he had neck surgery on 08/22/21. MD elicited complaint: shortness of breath and cough Pertinent past history: COPD Onset (ago): day(s) Timing: constant Exacerbating factors: nothing Relieving factors: nothing Associated symptoms: Deny abdominal pain, chest congestion, chest pain, cough, diaphoresis, dizziness, extremity pain, fever(s), hemoptysis, lightheadedness, myalgias, nausea, orthopnea, palpitations, paresthesias, polydipsia, polyuria, rash, sense of impending doom, syncope or vomiting Treatment prior to arrival: none Review of Systems Const: Denies: fever(s) or diaphoresis Card: Denies: chest pain, palpitations, lightheadedness, syncope or orthopnea Resp: Denies: hemoptysis or chest congestion GI: Denies: abdominal pain, nausea or vomiting Musc: Denies: extremity pain Neuro: Denies: dizziness Endo: Denies: polyuria or polydipsia PFSH ED PFSH: Medical History Adhesive arachnoiditis CHF (congestive heart failure) COPD (chronic obstructive pulmonary disease) Diabetes GERD (gastroesophageal reflux disease) High risk medication use High risk medication use History of trigger finger Immunization counseling Inactive TB Inflammatory arthritis 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 Capone History of lumbar fusion History of PTCA History of spinal surgery 01/05/2020 Dr. Karla Capone: C4-C5, C5-C6 ACDFF. Hx of hand surgery Family History Father CAD (coronary artery disease) Cancer Heart disease Hypertension Other Arthritis Asthma Social History Alcohol intake: never Household members: spouse and family Marital status: Current occupational status: retired and disabled Current occupation: retired/disabled History of recent travel: No Physical Exam Const: ORIENTATION/CONSCIOUSNESS: Yes awake, Yes oriented to person, Yes oriented to place and Yes oriented to time HENMT: COMMON NORMALS: normocephalic, atraumatic and hearing grossly normal bilaterally HEAD & SCALP: normocephalic and atraumatic Neck/C-Spine: COMMON NORMALS: no JVD Resp: AUSCULTATION: wheezes Cardio: COMMON NORMALS: no JVD, regular rate, regular rhythm and No murmurs present (Cardio) RATE: regular rate RHYTHM: regular rhythm GI: COMMON NORMALS: Soft to palpation and No hepatosplenomegaly present AUSCULTATION: Yes normoactive bowel sounds PALPATION: Yes Soft to palpation, No Tenderness to palpation present (GI), No Guarding due to palpation present (GI) and Yes No hepatosplenomegaly present Extremity: COMMON NORMALS: normal to inspection, capillary refill normal, no clubbing, cyanosis or edema, no calf tenderness and no pedal edema Neuro: SENSORIUM/ORIENTATION: Yes oriented to person, Yes oriented to place and Yes oriented to time Skin: COMMON NORMALS: no rashes or lesions noted GENERAL SKIN EXAM: no kee hes or lesions noted Course Vital Signs: Vital signs: Vital Signs Pulse Rate 107 H 09/05/21 13:24 Respiratory Rate 24 H 09/05/21 13:24 Blood Pressure 125/67 09/05/21 13:24 Pulse Oximetry 94 09/05/21 13:24 MDM - SOB/Dyspnea MDM Narrative Medical decision making narrative: Patient presents acutely hypoxic and requiring oxygen recommended for repeat CT and venous duplex lower extremities I strongly suspect he may have thromboembolism. He elected to leave AMA try to redirect him discussed with him my concerns. Discussed with him the seriousness the diagnosis despite this he wishes to go home he ultimately left AMA I encouraged him to return at any point for any worsening or change of symptoms. Did reinforce to him the possibility of this diagnosis being fatal if not properly treated however we were not able to confirm the diagnosis. Medical Records Attestation: I reviewed the patient's medical records. Lab Data Attestation: I reviewed the patient's lab results. Result diagrams: 09/05/21 16:00 09/05/21 16:00 Labs: Lab Results 09/05/21 09/05/21 09/05/21 13:56 13:56 13:56 WBC Cancelled Corrected WBC Cancelled RBC Cancelled Hgb Cancelled Hct Cancelled MCV Cancelled MCH Cancelled MCHC Cancelled RDW Cancelled Plt Count Cancelled MPV Cancelled Gran % Cancelled Neut % (Auto) Cancelled Lymph % (Auto) Cancelled [place] % (Auto) Cancelled Eos % (Auto) Cancelled Baso % (Auto) Cancelled Neut # (Auto) Cancelled Lymph # (Auto) Cancelled [place] # (Auto) Cancelled Eos # (Auto) Cancelled Baso # (Auto) Cancelled Absolute Gran (auto) Cancelled Nucleated RBC % (auto) Cancelled Nucleated RBCs # Cancelled D-Dimer 4.11 ug/mIFEU H ug/mIFEU (0-0.59) Specimen Type Sample Site ABG pH ABG pCO2 ABG pO2 ABG HCO3 ABG O2 Saturation ABG Base Excess Mahad Test A-a O2 Gradient Hematocrit Hgb O2 Saturation Carboxyhemoglobin Methemoglobin Total Hemoglobin Ionized Calcium O2 Delivery Device O2 Liters/Min FiO2 Pattern Room Attendant ID Sodium Cancelled Potassium Cancelled Chloride Cancelled Carbon Dioxide Cancelled Anion Gap Cancelled BUN Cancelled Creatinine Cancelled GFR Calculation Cancelled Glucose Cancelled Calculated Osmolality Cancelled Calcium Cancelled Total Bilirubin Cancelled AST Cancelled ALT Cancelled Alkaline Phosphatase Cancelled C-Reactive Protein Cancelled Total Protein Cancelled Albumin Cancelled Globulin Cancelled 09/05/21 09/05/21 09/05/21 14:15 16:00 16:00 WBC 7.6 10^3/uL 10^3/uL (4.0-10.0) Corrected WBC RBC 3.92 10^6/uL L 10^6/uL (4.1-5.3) Hgb 13.0 g/dL g/dL (11.7-16.6) Hct 40.6 % L % (42.0-52.0) MCV 103.6 fl H fl (80-94) MCH 33.2 pg pg (28.0-34.0) MCHC 32.0 g/dL g/dL (30.0-36.0) RDW 14.3 % % (12.1-15.1) Plt Count 324 10^3/cmm 10^3/cmm (130-400) MPV 10.8 fL H fL (7.4-10.4) Gran % Neut % (Auto) 70.4 % % Lymph % (Auto) 15.9 % % [place] % (Auto) 11.0 % % Eos % (Auto) 0.9 % % Baso % (Auto) 0.9 % % Neut # (Auto) 5.35 10^3/uL 10^3/uL (1.8-7.7) Lymph # (Auto) 1.2 10^3/uL 10^3/uL (0.8-4.8) [place] # (Auto) 0.8 10^3/uL 10^3/uL (0.2-0.9) Eos # (Auto) 0.1 10^3/uL 10^3/uL (0.0-0.8) Baso # (Auto) 0.1 10^3/uL 10^3/uL (0.0-0.1) Absolute Gran (auto) Nucleated RBC % (auto) 0 % % Nucleated RBCs # 0.0 /100WBC /100WBC D-Dimer Specimen Type Arterial Sample Site Brachial, right ABG pH 7.46 H (7.35-7.45) ABG pCO2 39.9 mmHg mmHg (35-45) ABG pO2 78.2 mmHg L mmHg (80.0-100.0) ABG HCO3 28.4 mmol/L H mmol/L (22-26) ABG O2 Saturation 95.0 ABG Base Excess 4.3 mmol/L H mmol/L (-2.0-2.0) Mahad Test N/a A-a O2 Gradient 13.0 mmHg H mmHg (5-10) Hematocrit 39.1 % L % (42-52) Hgb O2 Saturation 92.6 % L % (95-100) Carboxyhemoglobin 1.7 %THgb %THgb (0.4-20.1) Methemoglobin 0.8 % % (0.4-1.5) Total Hemoglobin 12.8 g/dL L g/dL (14-18) Ionized Calcium 1.2 mmol/L mmol/L (1.1-1.4) O2 Delivery Device Nc O2 Liters/Min 3.0 % % FiO2 32.0 % % Pattern Room Attendant ID Jignaeri Sodium 139.0 mmol/L mmol/L 142 mmol/L mmol/L (131-143) (136-145) Potassium 3.0 mmol/L L mmol/L 3.6 mmol/L mmol/L (3.5-5.0) (3.5-5.1) Chloride 99 mmol/L mmol/L (98-107) Carbon Dioxide 26 mmol/L mmol/L (22-29) Anion Gap 20.6 H (5-19) BUN 10 mg/dL mg/dL (8-23) Creatinine 0.8 mg/dL mg/dL (0.7-1.2) GFR Calculation 96.7 mL/min mL/min (90-130) Glucose 306.0 mg/dL H mg/dL 303 mg/dL H mg/dL (70-115) (65-115) Calculated Osmolality 304 mOsm/kg H mOsm/kg (285-295) Calcium 8.1 mg/dL L mg/dL (8.5-10.5) Total Bilirubin 0.2 mg/dL mg/dL (0.15-1.2) AST 22 U/L U/L (0-40) ALT 18 U/L U/L (0-41) Alkaline Phosphatase 110 IU/L IU/L (40-130) C-Reactive Protein 23.9 mg/L H mg/L (0.0-4.9) Total Protein 6.0 g/dL L g/dL (6.6-8.7) Albumin 3.3 g/dL L g/dL (3.5-5.2) Globulin 2.7 g/dL g/dL (1.3-4.6) Discharge Plan Discharge Patient Disposition: Left Against Medical Advice Clinical Impression: Thromboembolism Condition: Stable Prescriptions: No Action tramadol 50 mg tablet 100 mg PO TID PRN (Reason: Pain) 0RF Stiolto Respimat 2.5-2.5 mcg/actuation mist 2 puff INHALATION DAILY PRN (Reason: PTS STATES THE PT HASNT USED IN MONTHS) 0RF aspirin [Adult Low Dose Aspirin] 81 mg tablet,delayed release (DR/EC) 81 mg PO DAILY 0RF Hold Instructions: Resume on 01/06/20. docusate sodium [Colace] 100 mg capsule 200 mg PO BID 0RF rosuvastatin [Crestor] 40 mg tablet 40 mg PO DAILY 0RF Jardiance 25 mg tablet 25 mg PO DAILY 0RF metformin 1,000 mg tablet 1,000 mg PO BID 0RF methimazole [Tapazole] 5 mg tablet 2.5 mg PO BID 0RF nitroglycerin [Nitrostat] 0.4 mg tablet, sublingual 0.4 mg SUBLINGUAL Q5M PRN (Reason: Chest Pain) 0RF albuterol sulfate [ProAir HFA] 90 mcg/actuation HFA aerosol inhaler 2 puff INHALATION PRN PRN (Reason: Shortness Of Breath) 0RF tamsulosin 0.4 mg capsule 0.4 mg PO DAILY 0RF Combivent Respimat 20-100 mcg/actuation mist 1 puff INHALATION DAILY PRN (Reason: STATES PT NOT USED IN MONTHS LAST FILLED 09/09) 0RF Humira Pen 40 mg/0.8 mL pen injector kit 40 mg SUBCUT Q14D Qty: 2 0RF gabapentin 400 mg capsule 400 mg PO TID 0RF gabapentin 800 mg tablet 800 mg PO TID 0RF Novolin N NPH U-100 Insulin 100 unit/mL suspension See Rx Instructions .ROUTE .COMPLEX 0RF Rx Instructions: 80 UNITS subcutaneously QAM AND 75 UNITS BEDTIME ergocalciferol (vitamin D2) 1,250 mcg (50,000 unit) capsule 50,000 unit PO Q7D 0RF Rx Instructions: ON FRIDAYS Novolog Flexpen U-100 Insulin 100 unit/mL (3 mL) Insulin Pen See Rx Instructions .ROUTE .COMPLEX 0RF Rx Instructions: SLIDING SCALE subcutaneously TID WITH MEALS prednisone 10 mg Tablet 10 mg PO . DIRECTED PRN (Reason: ARTHRITIS FLARE UPS) 0RF leflunomide 20 mg tablet 20 mg PO DAILY 0RF pantoprazole 40 mg tablet,delayed release (DR/EC) 40 mg PO DAILY 0RF Victoza 3-Karl 0.6 mg/0.1 mL (18 mg/3 mL) pen injector 1.8 mg SUBCUT DAILY 0RF Cipro 500 mg tablet 500 mg PO BID 0RF cyanocobalamin (vitamin B-12) 1,000 mcg/mL solution 1,000 mcg SUBCUT Q30D 0RF Referrals: Rehan Clarke MD [Primary Care Provider] - Discharge Diet: Usual diet Discharge Activity: Limit activity as instructed Activity Restrictions/Additional Instructions: Unfortunately since you elected to leave the emergency room prior to completing evaluation we cannot be sure of your diagnosis. I do suspect you have a thromboembolism possibly a DVT or pulmonary emboli given the low oxygen saturation that was present when you first arrived. You may return to the [facility] room at any time to be reevaluated. There is a risk of with this diagnosis since it was not confirmed nor was it treated. Would strongly recommend you reconsider and allow us to complete evaluation so you may be treated appropriately. 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
[2021-09-05 13:24] VITALS: BP 125/67; PULSE 107; RESP 24; O2SAT 94
--- NOTE | 2021-09-05 13:38 | XR_ITS ---
WS: [id number] Exam: XR chest 1V portable [id number] Date/Time of Exam: 09/05/2021 1:53 PM Reason For Exam: dyspnea/cough Comparison 08/30/2021. There appears to be subsegmental atelectasis of the left lung. Small left pleural effusion noted. The right lung is clear and fully expanded. Normal heart size. The mediastinum is not widened. Hardware is noted in the lower cervical and upper thoracic spine. Regional bony structures are intact. XR/XR chest 1V portable [id number] IMPRESSION: 1. Subsegmental atelectasis on the left lung with some volume loss. Small left basal pleural effusion.
--- NOTE | 2021-09-05 13:52 | ECG_ITS ---
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 Measurements Intervals Hulbert Rate: 103 P: 75 OR: 139 QRS: -31 QRSD: 111 T: 66 QT: 350 QTc: 458 Interpretive Statements SINUS TACHYCARDIA POSSIBLE LEFT ATRIAL ENLARGEMENT [-0.1mV P-WAVE IN V1/V2] LEFT AXIS DEVIATION [QRS AXIS < -30] LOW QRS VOLTAGE IN PRECORDIAL LEADS [QRS DEFLECTION < 1.0 mV IN CHEST LEADS] RIGHT BUNDLE BRANCH BLOCK [120+ ms QRS DURATION, UPRIGHT V1, 40+ ms S IN I/aVL/V4/V5/V6] Compared to ECG 08/26/2021 12:05:45 Left-axis deviation now present Low QRS voltage now present Left anterior fascicular block no longer present Myocardial infarct finding no longer present Electronically Signed On 09-08-2021 19:33:07 OFFICE TECHNOLOGIST by Susana Ni M.D. [email or web address]
[2021-09-05 14:29] LABS: ABG PCO2 39.9 mmHg (35-45); ABG PH Result 7.46 (7.35-7.45); Arterial Blood Gas Hematocrit 39.1 % (42-52); Base Excess ABG 4.3 mmol/L (-2.0-2.0); Blood Gas Sample Site Brachial, right; Blood Gas Sample Type Arterial; Carboxyhemoglobin 1.7 %THgb (0.4-20.1); HCO3 ABG 28.4 mmol/L (22-26); HGB O2 Sat 92.6 % (95-100); Ionized Calcium Level - ABG 1.2 mmol/L (1.1-1.4); Methemoglobin 0.8 % (0.4-1.5); Oxygen Device NC; PO2 ABG 78.2 mmHg (80.0-100.0); Total Hemoglobin 12.8 g/dL (14-18)
[2021-09-05 14:51] LABS: D Dimer 4.11 ug/mIFEU (0-0.59)
--- NOTE | 2021-09-05 15:51 | PC.NURSE ---
Cleaned and placed clean brief and pants Pt signed AMA form notified, states she does not have a ride to come pick him up.
[2021-09-05 16:11] LABS: Basophils # 0.1 10^3/uL (0.0-0.1); Basophils % 0.9 %; Eosinophils # 0.1 10^3/uL (0.0-0.8); Eosinophils % 0.9 %; Hematocrit 40.6 % (42.0-52.0); Lymphocytes # 1.2 10^3/uL (0.8-4.8); Lymphocytes % 15.9 %; Mean Corpuscular Hemoglobin 33.2 pg (28.0-34.0); Mean Corpuscular Volume 103.6 fl (80-94); Mean Platelet Volume 10.8 fL (7.4-10.4); Monocytes # 0.8 10^3/uL (0.2-0.9); Neutrophils # 5.35 10^3/uL (1.8-7.7); Neutrophils % 70.4 %; Nucleated Red Blood Cells % 0 %; Platelet Count 324 10^3/cmm (130-400); Red Blood Count 3.92 10^6/uL (4.1-5.3); Red Cell Distribution Width 14.3 % (12.1-15.1); White Blood Count 7.6 10^3/uL (4.0-10.0)
[2021-09-05 16:31] LABS: Alanine Aminotransferase 18 U/L (0-41); Albumin Level 3.3 g/dL (3.5-5.2); Alkaline Phosphatase 110 IU/L (40-130); Anion Gap 20.6 (5-19); Aspartate Amino Transferase 22 U/L (0-40); Blood Urea Nitrogen 10 mg/dL (8-23); C Reactive Protein 23.9 mg/L (0.0-4.9); Calcium 8.1 mg/dL (8.5-10.5); Carbon Dioxide 26 mmol/L (22-29); Chloride 99 mmol/L (98-107); Globulin 2.7 g/dL (1.3-4.6); Glomerular Filtration Rate 96.7 mL/min (90-130); Glucose 303 mg/dL (65-115); Osmolality Calculated 304 mOsm/kg (285-295); Potassium 3.6 mmol/L (3.5-5.1); Sodium 142 mmol/L (136-145); Total Bilirubin 0.2 mg/dL (0.15-1.2)
[2021-09-08 17:34] LABS: Bacillus cereus group Not Detected (NOT DETECT); Bacillus subtillis group Not Detected (NOT DETECT); Corynebacterium Not Detected (NOT DETECT); Cutibacterium acnes (P.acnes) Not Detected (NOT DETECT); Enterococcus Not Detected (NOT DETECT); Enterococcus faecalis Not Detected (NOT DETECT); Enterococcus faecium Not Detected (NOT DETECT); Lactobacillus species Not Detected (NOT DETECT); Listeria Not Detected (NOT DETECT); Listeria monocytogenes Not Detected (NOT DETECT); Micrococcus Not Detected (NOT DETECT); Pan Candida Not Detected (NOT DETECT); Pan Gram-Negative Not Detected (NOT DETECT); Staphylococcus epidermidis Not Detected (NOT DETECT); Staphylococcus lugdunensis Not Detected (NOT DETECT); Staphylococcus species Not Detected (NOT DETECT); Streptococcus agalactiae Not Detected (NOT DETECT); Streptococcus anginosus group Not Detected (NOT DETECT); Streptococcus pneumoniae Not Detected (NOT DETECT); Streptococcus pyogenes Not Detected (NOT DETECT); Streptococcus species Not Detected (NOT DETECT)
--- NOTE | 2021-09-12 09:07 | PC.SOCIAL ---
Attempted to assist getting patient placed at SNF. All local facilities denied. talked to [facility] but they also were unable to accept. was told by someone may want to consider him going [facility]. called this nurse again this am asking about senior care. This nurse explained that fi they could get a facility to accept him under his JAYLEN he could go but would have to give up his check. Explained that patient has to be agreeable to this and based on his noncompliance and leaving hospital as well as ED AMA it does not seem he would agree. indicates he is doing worse and wants to know options. Explained that patient can and should return to ED anytime if she feels like he is getting worse. He may potentially require admission after evaluated but again as long as alert and oriented and once back to baseline he would need to agree to placement if this is her [facility] goal. All questions answered to the best of my ability.
== END 2021-09-05 17:00 | disposition left against medical advice (07) ==
PROVIDERS: Emergency Provider Family Medicine; PCP Family Medicine
DX: I74.9 Embolism and thrombosis of unspecified artery (principal); Z53.21 Procedure and treatment not carried out due to patient leaving prior to being seen by health care provider; Z79.84 Long term (current) use of oral hypoglycemic drugs; Z79.82 Long term (current) use of aspirin; Z79.4 Long term (current) use of insulin; I50.9 Heart failure, unspecified; J44.9 Chronic obstructive pulmonary disease, unspecified; E11.9 Type 2 diabetes mellitus without complications
CPT/HCPCS: 36415; 36600; 71045; 80051; 80053; 82330; 82805; 85025; 85378; 86140; 87040; 93005; 99283